=== PATIENT | female | born 1980 | race Caucasian/White ===

== ENCOUNTER 2016-11-21 14:18 | Emergency (ER) | payer OTHER ==
[2016-11-21 14:31] VITALS: RESP 18
[2016-11-21] MEDS ORDERED: ACETAMINOPHEN IV (For NPO) 1,000 MG in EMPTY BAG 1 BAG IVPB STA (15:06)
[2016-11-21] MEDS ORDERED: SODIUM CHLORIDE 0.9% 1,000 ML IV STA ×2 (15:06→16:30)
[2016-11-21] MEDS ORDERED: KETOROLAC 30 MG/ML 1 ML VIAL IVP STA (15:07)
--- NOTE | 2016-11-21 15:22 | ED ---
General Adult HPI - General Chief complaint: Chest Pain Stated complaint: chest pain/ rib pain Time Seen by Provider: 11/21/16 15:01 Source: patient, RN notes reviewed, old records reviewed Mode of arrival: ambulatory Limitations: no limitations - History of Present Illness Initial comments: This is a 36-year-old female to the ER for evaluation. This patient presents for evaluation of chest pain. Patient is medical history is consistent for taking Percocets, as well as recent upper for infection which she was taking [id number] medications. Patient denies nausea vomiting or diarrhea denies any significant complaints. She was at a doctor's office and apparently had a syncopal event possibly drug overdose unsure, per records obtained from [facility] the did see she had a drug overdose and patient signed an AMA, patient hears his combining of chest pain, she did have CPR during this event. Patient denies shortness of breath pain is worse when she pushes on it or takes a deep breath or coughs - Related Data Home Medications Medication Instructions Recorded Confirmed Furosemide [Lasix] 20 mg PO BID 08/15/14 11/21/16 acetaZOLAMIDE [Diamox] 500 mg PO BID 08/15/14 11/21/16 Gabapentin [Neurontin] 800 mg PO TID PRN 12/14/15 11/21/16 Lisinopril [Zestril] 20 mg PO BID PRN 11/21/16 11/21/16 Propranolol HCl [Propranolol HCl 120 mg PO DAILY 11/21/16 11/21/16 ER] oxyCODONE-APAP 10-325MG [Percocet 1 tab PO QID PRN 11/21/16 11/21/16 10-325 mg] Allergies Allergy/AdvReac Type Severity Reaction Status Date / Time nitrofurantoin Allergy Swelling Verified 11/21/16 14:31 [From Macrobid] nitrofurantoin Allergy Swelling Verified 11/21/16 14:31 macrocrystalline [From Macrobid] Penicillins Allergy Unknown Verified 11/21/16 14:31 Review of Systems ROS Statement: Those systems with pertinent positive or pertinent negative responses have been documented in the HPI. ROS Other: All systems not noted in ROS Statement are negative. Past Medical History Past Medical History: Hypertension Additional Past Medical History / Comment(s): ovarian cyst, tumor cerebrai, neuropathy History of Any Multi-Drug Resistant Organisms: None Reported Past Surgical History: Section, Tubal Ligation Additional Past Surgical History / Comment(s): D&C, right ovary removed Past Psychological History: Anxiety, Depression Smoking Status: Current every day smoker Past Alcohol Use History: Occasional Past Drug Use History: None Reported General Exam Limitations: no limitations General appearance: alert, in no apparent distress Head exam: Present: atraumatic, normocephalic, normal inspection Eye exam: Present: normal appearance, PERRL, EOMI. Absent: scleral icterus, conjunctival injection, periorbital swelling ENT exam: Present: normal exam, mucous membranes moist Neck exam: Present: normal inspection. Absent: tenderness, meningismus, lymphadenopathy Respiratory exam: Present: normal lung sounds bilaterally. Absent: respiratory distress, wheezes, rales, rhonchi, stridor Cardiovascular Exam: Present: regular rate, normal rhythm, normal heart sounds. Absent: systolic murmur, diastolic murmur, rubs, gallop, clicks GI/Abdominal exam: Present: soft, normal bowel sounds. Absent: distended, tenderness, guarding, rebound, rigid Extremities exam: Present: normal inspection, full ROM, normal capillary refill. Absent: tenderness, pedal edema, joint swelling, calf tenderness Back exam: Present: normal inspection Neurological exam: Present: alert, oriented X3, CN II-XII intact Psychiatric exam: Present: normal affect, normal mood Skin exam: Present: warm, dry, intact, normal color. Absent: rash Course Vital Signs 11/21/16 14:28 Temperature 98.3 F Pulse Rate 84 Respiratory 18 Rate Blood Pressure 189/116 O2 Sat by Pulse 100 Oximetry - Reevaluation(s) Reevaluation #1: 11/21/16 17:34 Patient states she still having chest pain rib pain and back pain EKG Findings - EKG Comments: EKG Findings:: EKG shows normal sinus or mastoid 2, NV 140, QRS 100, QTC 446 Medical Decision Making - Medical Decision Making 36 female here for evaluation of chest pain after CPR. Patient apparently had a possible overdose versus unknown cause of CPR few days ago, was seen [facility] emergency [facility], per records patient signed out AMA, during evaluation today patient's complaining of rib pain, CT is negative lab work is normal patient can be discharged home - Lab Data Result diagrams: 11/21/16 15:34 11/21/16 15:34 Lab Results 11/21/16 11/21/16 11/21/16 Range/Units 15:34 15:34 15:34 WBC 10.3 (3.8-10.6) k/uL RBC 3.80 (3.80-5.40) m/uL Hgb 11.0 L (11.4-16.0) gm/dL Hct 34.1 (34.0-46.0) % MCV 89.7 (80.0-100.0) fL MCH 29.0 (25.0-35.0) pg MCHC 32.3 (31.0-37.0) g/dL RDW 15.2 (11.5-15.5) % Plt Count 271 (150-450) k/uL Neutrophils % 68 % Lymphocytes % 24 % Monocytes % 4 % Eosinophils % 2 % Basophils % 1 % Neutrophils # 7.0 (1.3-7.7) k/uL Lymphocytes # 2.4 (1.0-4.8) k/uL Monocytes # 0.4 (0-1.0) k/uL Eosinophils # 0.2 (0-0.7) k/uL Basophils # 0.1 (0-0.2) k/uL PT (9.0-12.0) sec INR (<1.1) APTT (22.0-30.0) sec D-Dimer (<0.60) mg/L FEU Sodium 141 (137-145) mmol/L Potassium 4.0 (3.5-5.1) mmol/L Chloride 106 (98-107) mmol/L Carbon Dioxide 24 (22-30) mmol/L Anion Gap 11 mmol/L BUN 12 (7-17) mg/dL Creatinine 0.59 (0.52-1.04) mg/dL Est GFR (MDRD) Af Amer >60 (>60 ml/min/1.73 sqM) Est GFR (MDRD) Non-Af >60 (>60 ml/min/1.73 sqM) Glucose 107 H (74-99) mg/dL Calcium 8.8 (8.4-10.2) mg/dL Phosphorus 3.7 (2.5-4.5) mg/dL Magnesium 2.0 (1.6-2.3) mg/dL Total Bilirubin 0.4 (0.2-1.3) mg/dL AST 10 L (14-36) U/L ALT 33 (9-52) U/L Alkaline Phosphatase 75 (38-126) U/L Total Creatine Kinase 43 (30-135) U/L CK-MB (CK-2) 0.3 (0.0-2.4) ng/mL CK-MB (CK-2) Rel Index 0.7 Troponin I <0.012 (0.000-0.034) ng/mL Total Protein 7.1 (6.3-8.2) g/dL Albumin 3.9 (3.5-5.0) g/dL Urine HCG, Qual (Not Detectd) Salicylates <1.0 mg/dL Urine Opiates Screen (NotDetected) Ur Oxycodone Screen (NotDetected) Urine Methadone Screen (NotDetected) Ur Propoxyphene Screen (NotDetected) Acetaminophen <10.0 ug/mL Ur Barbiturates Screen (NotDetected) U Tricyclic Antidepress (NotDetected) Ur Phencyclidine Scrn (NotDetected) Ur Amphetamines Screen (NotDetected) U Methamphetamines Scrn (NotDetected) U Benzodiazepines Scrn (NotDetected) Urine Cocaine Screen (NotDetected) U Marijuana (THC) Screen (NotDetected) 11/21/16 11/21/16 11/21/16 Range/Units 15:34 16:23 16:23 WBC (3.8-10.6) k/uL RBC (3.80-5.40) m/uL Hgb (11.4-16.0) gm/dL Hct (34.0-46.0) % MCV (80.0-100.0) fL MCH (25.0-35.0) pg MCHC (31.0-37.0) g/dL RDW (11.5-15.5) % Plt Count (150-450) k/uL Neutrophils % % Lymphocytes % % Monocytes % % Eosinophils % % Basophils % % Neutrophils # (1.3-7.7) k/uL Lymphocytes # (1.0-4.8) k/uL Monocytes # (0-1.0) k/uL Eosinophils # (0-0.7) k/uL Basophils # (0-0.2) k/uL PT 10.5 (9.0-12.0) sec INR 1.0 (<1.1) APTT 23.1 (22.0-30.0) sec D-Dimer 1.53 H (<0.60) mg/L FEU Sodium (137-145) mmol/L Potassium (3.5-5.1) mmol/L Chloride (98-107) mmol/L Carbon Dioxide (22-30) mmol/L Anion Gap mmol/L BUN (7-17) mg/dL Creatinine (0.52-1.04) mg/dL Est GFR (MDRD) Af Amer (>60 ml/min/1.73 sqM) Est GFR (MDRD) Non-Af (>60 ml/min/1.73 sqM) Glucose (74-99) mg/dL Calcium (8.4-10.2) mg/dL Phosphorus (2.5-4.5) mg/dL Magnesium (1.6-2.3) mg/dL Total Bilirubin (0.2-1.3) mg/dL AST (14-36) U/L ALT (9-52) U/L Alkaline Phosphatase (38-126) U/L Total Creatine Kinase (30-135) U/L CK-MB (CK-2) (0.0-2.4) ng/mL CK-MB (CK-2) Rel Index Troponin I (0.000-0.034) ng/mL Total Protein (6.3-8.2) g/dL Albumin (3.5-5.0) g/dL Urine HCG, Qual Not Detected (Not Detectd) Salicylates mg/dL Urine Opiates Screen Detected H (NotDetected) Ur Oxycodone Screen Detected H (NotDetected) Urine Methadone Screen Not Detected (NotDetected) Ur Propoxyphene Screen Not Detected (NotDetected) Acetaminophen ug/mL Ur Barbiturates Screen Not Detected (NotDetected) U Tricyclic Antidepress Not Detected (NotDetected) Ur Phencyclidine Scrn Not Detected (NotDetected) Ur Amphetamines Screen Not Detected (NotDetected) U Methamphetamines Scrn Not Detected (NotDetected) U Benzodiazepines Scrn Not Detected (NotDetected) Urine Cocaine Screen Not Detected (NotDetected) U Marijuana (THC) Screen Not Detected (NotDetected) - Radiology Data Radiology results: report reviewed (Chest x-ray negative for acute disease, CT negative for PE or rib fracture,), image reviewed Disposition Clinical Impression: Chest wall contusion Disposition: HOME SELF-CARE Condition: Good Instructions: Costochondritis (ED) Referrals: None,Stated [Primary Care Provider] - 1-2 days
[2016-11-21 15:46] LABS: Basophils # (A) 0.1 k/uL (0-0.2); Basophils % (A) 1 %; CH 29.6; CHCM 33.2; Eosinophils # (A) 0.2 k/uL (0-0.7); Eosinophils % (A) 2 %; HCT 34.1 % (34.0-46.0); HDW 2.96; Luc # (Auto) 0.19; Luc % (Auto) 2; Lymphocytes # (A) 2.4 k/uL (1.0-4.8); Lymphocytes % (A) 24 %; MCHC 32.3 g/dL (31.0-37.0); MCV 89.7 fL (80.0-100.0); Mean Platelet Volume 8.3; Monocytes # (A) 0.4 k/uL (0-1.0); Monocytes % (A) 4 %; Neutrophils % (A) 68 %; RDW 15.2 % (11.5-15.5); WBC 10.3 k/uL (3.8-10.6); WBC (Perox) 10.67
[2016-11-21 15:57] LABS: ALT 33 U/L (9-52); AST 10 U/L (14-36); Acetaminophen <10.0 ug/mL; Alkaline Phosphatase 75 U/L (38-126); Anion Gap 11 mmol/L; Blood Urea Nitrogen 12 mg/dL (7-17); Calcium 8.8 mg/dL (8.4-10.2); Carbon Dioxide 24 mmol/L (22-30); Chloride 106 mmol/L (98-107); Glucose 107 mg/dL (74-99); Non-African American GFR(MDRD) >60 (>60 ml/min/1.73 sqM); Phosphorous 3.7 mg/dL (2.5-4.5); Salicylate <1.0 mg/dL; Sodium 141 mmol/L (137-145); Total Bilirubin 0.4 mg/dL (0.2-1.3); Total Protein 7.1 g/dL (6.3-8.2)
[2016-11-21 15:59] LABS: Partial Thromboplastin Time 23.1 sec (22.0-30.0); Prothrombin Time 10.5 sec (9.0-12.0)
[2016-11-21 16:03] LABS: Creatine Kinase 43 U/L (30-135)
[2016-11-21 16:15] LABS: Creatine Kinase MB 0.3 ng/mL (0.0-2.4); Troponin I <0.012 ng/mL (0.000-0.034)
--- NOTE | 2016-11-21 16:16 | XR ---
EXAMINATION TYPE: XR chest 2V DATE OF EXAM: 11/21/2016 3:55 PM COMPARISON: 10/11/2015 INDICATION: Weakness TECHNIQUE: Single frontal view of the chest is obtained. FINDINGS: The heart size is normal. The pulmonary vasculature is normal. There is some blunting left costophrenic angle. Small pleural effusion or atelectasis could be consid ered. No pneumothorax is evident. The lungs are otherwise clear. No acute osseous abnormality is radiographically apparent. IMPRESSION: 1. Minimal atelectasis or effusion at the left costophrenic angle.
[2016-11-21] MEDS ORDERED: RX INFO: IV CONTRAST WAS GIVEN 1 EACH MISC MISCELLANE PRN (16:28)
--- NOTE | 2016-11-21 17:01 | CT ---
CT CHEST FOR PULMONARY EMBOLISM. EXAMINATION TYPE: CT angio chest DATE OF EXAM: 11/21/2016 4:56 PM INDICATION: Pt states of chest pain and SOB. Recent LOC episode x4days ago. CT DLP: 1566 mGycm, Automated exposure control for dose reduction was used. CONTRAST: Patient injected with 100 mL of Omnipaque 350. COMPARISON: NONE TECHNIQUE: CT of the chest is performed on a spiral scan at 2 mm thick sections. Study is performed with intravenous contrast timed for evaluation for pulmonary embolism. This will limit additional po rtions of the evaluation. 3-D MIP images reconstructed by the technologist are reviewed on the compu ter in the coronal and sagittal planes. FINDINGS: No persistent filling defects are evident to suggest an acute pulmonary embolism. No mediastinal or hilar adenopathy enlarged by CT criteria is evident. The ascending aorta diameter at the level of the main pulmonary artery is 4.1 cm. The main pulmonary artery diameter at the bifur cation is 2.5 cm. Minimal pleural effusions are present. Lung windows appear clear. Limited CT section through the upper abdomen are unremarkable. IMPRESSIONS: 1. No acute pulmonary embolism. 2. Minimal bilateral pleural effusions.
[2016-11-21 17:44] VITALS: BP 155/99; PULSE 70; TEMP 97.9
== END 2016-11-21 17:44 | disposition home or self-care (01) ==
LOC: EC 14:18
DX: S20.219A Contusion of unspecified front wall of thorax, initial encounter (principal); M94.0 Chondrocostal junction syndrome [Tietze]; I10 Essential (primary) hypertension; G62.9 Polyneuropathy, unspecified; F17.200 Nicotine dependence, unspecified, uncomplicated; Z79.899 Other long term (current) drug therapy; Z88.0 Allergy status to penicillin; Z88.8 Allergy status to other drugs, medicaments and biological substances; X58.XXXA Exposure to other specified factors, initial encounter
CPT/HCPCS: 36415; 93005; 85379; 80053; 82550; 82553; 83735; 84100; 84484; 85025; 85610; 85730; 81025; 80306; 83520 ×2; 71020; 71275; 99285; 96374; 96375; 96361 ×2; Q9967; J1885; J0131

== ENCOUNTER 2018-03-12 10:52 | Emergency (ER) | payer OTHER ==
[2018-03-12 10:57] VITALS: RESP 18; TEMP 98.1
[2018-03-12] MEDS ORDERED: PROMETHAZINE INJ 25 MG/ML 1 ML VIAL IVPB STA (11:44)
[2018-03-12] MEDS ORDERED: diphenhydrAMINE 50 MG/ML 1 ML VIAL IVP STA (11:44)
[2018-03-12] MEDS ORDERED: KETOROLAC 60 MG/2 ML VIAL IVP STA (11:44)
[2018-03-12] MEDS ORDERED: SODIUM CHLORIDE 0.9% 1,000 ML IV ONE (11:44)
--- NOTE | 2018-03-12 11:49 | ED ---
General Adult HPI - General Chief complaint: Headache Stated complaint: Migraine Time Seen by Provider: 03/12/18 10:55 Source: patient, RN notes reviewed Mode of arrival: ambulatory Limitations: no limitations - History of Present Illness Initial comments: This is a 38-year-old female presents emergency Department with a past history significant for opiate abuse and migraine headaches. Patient states she's been multiple opiate free for 16 months. Patient states she started having a migraine headache he states on the right side of her head she is photophobic and nauseated. Patient states she has not vomited this point. Patient denies any blurred vision. Patient denies any numbness or weakness. Patient states there is nothing different about this headache than any of her previous migraine headaches. Patient denies any recent fever chills. Patient denies any difficulty breathing shortest breath per patient denies any chest pain. Patient denies abdominal pain patient denies any vomiting or diarrhea. - Related Data Home Medications Medication Instructions Recorded Confirmed Ibuprofen [Motrin Ib] 800 mg PO Q6H PRN 03/12/18 03/12/18 Allergies Allergy/AdvReac Type Severity Reaction Status Date / Time nitrofurantoin Allergy Swelling Verified 03/12/18 11:11 [From Macrobid] nitrofurantoin Allergy Swelling Verified 03/12/18 11:11 macrocrystalline [From Macrobid] Penicillins Allergy Unknown Verified 03/12/18 11:11 Review of Systems ROS Statement: Those systems with pertinent positive or pertinent negative responses have been documented in the HPI. ROS Other: All systems not noted in ROS Statement are negative. Past Medical History Past Medical History: Hypertension Additional Past Medical History / Comment(s): ovarian cyst, tumor cerebrai, neuropathy, migraines History of Any Multi-Drug Resistant Organisms: None Reported Past Surgical History: Section, Tubal Ligation Additional Past Surgical History / Comment(s): D&C, right ovary removed Past Psychological History: Anxiety, Depression Smoking Status: Former smoker Past Alcohol Use History: Rare Past Drug Use History: None Reported General Exam - General Exam Comments Initial Comments: GENERAL: Patient is well-developed and well-nourished. Patient is nontoxic and well- hydrated and is in mild distress. ENT: Neck is soft and supple. No significant lymphadenopathy is noted. Oropharynx is clear. Moist mucous membranes. Neck has full range of motion without eliciting any pain. EYES: The sclera were anicteric and conjunctiva were pink and moist. Extraocular movements were intact and pupils were equal round and reactive to light. Eyelids were unremarkable. PULMONARY: Unlabored respirations. Good breath sounds bilaterally. No audible rales rhonchi or wheezing was noted. CARDIOVASCULAR: There is a regular rate and rhythm without any murmurs gallops or rubs. ABDOMEN: Soft and nontender with normal bowel sounds. SKIN: Skin is clear with no lesions or rashes and otherwise unremarkable. NEUROLOGIC: Patient is alert and oriented x3. Cranial nerves II through XII are grossly intact. Motor and sensory are also intact. Normal speech, volume and content. Symmetrical smile. MUSCULOSKELETAL: Normal extremities with adequate strength and full range of motion. LYMPHATICS: No significant lymphadenopathy is noted PSYCHIATRIC: Normal psychiatric evaluation. Normal interpersonal interactions appears functionally intact in deals appropriately with others. No signs of depression. No signs of anxiety. Limitations: no limitations Course Vital Signs 03/12/18 10:53 Temperature 98.1 F Pulse Rate 83 Respiratory 18 Rate Blood Pressure 156/97 O2 Sat by Pulse 97 Oximetry Medical Decision Making - Medical Decision Making I will back into reevaluate the patient after she received Toradol Benadryl and Phenergan she was sleeping I awoke her and she said she felt way better. Disposition Clinical Impression: Migraine Disposition: HOME SELF-CARE Condition: Good Instructions: Acute Headache (ED) Is patient prescribed a controlled substance at d/c from ED?: No Referrals: None,Stated [Primary Care Provider] - 1-2 days Time of Disposition: 13:28
[2018-03-12 14:07] VITALS: BP 148/84; PULSE 82
== END 2018-03-12 14:07 | disposition home or self-care (01) ==
LOC: EC 10:52
DX: G43.909 Migraine, unspecified, not intractable, without status migrainosus (principal); Z87.891 Personal history of nicotine dependence; Z88.0 Allergy status to penicillin; Z88.1 Allergy status to other antibiotic agents
CPT/HCPCS: 99283; 96374; 96375 ×2; 96361 ×2; J1200; J2550; J1885

== ENCOUNTER 2018-05-14 09:26 | Emergency (ER) | payer OTHER ==
[2018-05-14] MEDS ORDERED: SODIUM CHLORIDE 0.9% 1,000 ML IV STA (09:55)
--- NOTE | 2018-05-14 09:58 | ED ---
General Adult HPI - General Chief complaint: Vaginal Bleeding Stated complaint: Bleeding Time Seen by Provider: 05/14/18 09:45 Source: patient, RN notes reviewed Mode of arrival: ambulatory Limitations: no limitations - History of Present Illness Initial comments: Patient 38-year-old female presented to the emergency room today with a chief complaint of increased vaginal bleeding. Patient was met that over the last 6- 8 months she's noticed that she's been having heavier periods. She states that over the last week she started her period and has been passing some large clots. Patient states that she has been using ibuprofen for abdominal cramping. Patient denies any other complaints or symptoms at this time. History of anemia. Patient denies any recent fever, chills, shortness of breath , chest pain, back pain, nausea or vomiting, numbness or tingling, dysuria or hematuria, constipation or diarrhea, headaches or visual changes, or any other complaints. - Related Data Home Medications Medication Instructions Recorded Confirmed Ibuprofen [Motrin Ib] 800 mg PO Q6H PRN 03/12/18 05/14/18 Acetaminophen/Pamabrom [Midol 2 tab PO Q6H PRN 05/14/18 05/14/18 Caplet] Allergies Allergy/AdvReac Type Severity Reaction Status Date / Time nitrofurantoin Allergy Swelling Verified 05/14/18 09:35 [From Macrobid] nitrofurantoin Allergy Swelling Verified 05/14/18 09:35 macrocrystalline [From Macrobid] Penicillins Allergy Unknown Verified 05/14/18 09:35 Review of Systems ROS Statement: Those systems with pertinent positive or pertinent negative responses have been documented in the HPI. ROS Other: All systems not noted in ROS Statement are negative. Past Medical History Past Medical History: Hypertension Additional Past Medical History / Comment(s): ovarian cyst, tumor cerebrai, neuropathy, migraines History of Any Multi-Drug Resistant Organisms: None Reported Past Surgical History: Section, Tubal Ligation Additional Past Surgical History / Comment(s): D&C, right ovary removed Past Psychological History: Anxiety, Depression Smoking Status: Former smoker Past Alcohol Use History: Rare Past Drug Use History: None Reported General Exam - General Exam Comments Initial Comments: General: The patient is awake and alert, in no distress, and does not appear acutely ill. Eye: Pupils are equal, round and reactive to light. Extra-ocular movements are intact. No nystagmus. There is normal conjunctiva bilaterally. No signs of icterus. Ears, nose, mouth and throat: There are moist mucous membranes and no oral lesions. Neck: The neck is supple, there is no tenderness or JVD. Cardiovascular: There is a regular rate and rhythm. No murmur, rub or gallop is appreciated. Respiratory: Lungs are clear to auscultation, respirations are non-labored, breath sounds are equal. No wheezes, stridor, rales, or rhonchi. Gastrointestinal: Soft, non-distended, non-tender abdomen without masses or organomegaly noted. There is no rebound or guarding present. No CVA tenderness. Musculoskeletal: Normal ROM, no tenderness. Sensation intact. Neurological: A&O x 3. CN II-XII intact, There are no obvious motor or sensory deficits. Coordination appears grossly intact. Speech is normal. Skin: Skin is warm and dry and no rashes or lesions are noted. Psychiatric: Cooperative, appropriate mood & affect, normal judgment. Limitations: no limitations Course Vital Signs 05/14/18 09:29 Temperature 98.4 F Pulse Rate 77 Respiratory 20 Rate Blood Pressure 148/92 O2 Sat by Pulse 98 Oximetry Medical Decision Making - Medical Decision Making Patient's labs been reviewed. Hemoglobin stable. Patient's ultrasound does reveal a small uterine fibroid. Results were discussed with age. Patient will be discharged home to follow up with her [employer]. She states that she has seen Dr. Mariee in the past. - Lab Data Result diagrams: 05/14/18 10:05 05/14/18 10:05 Lab Results 05/14/18 05/14/18 05/14/18 Range/Units 10:05 10:05 10:05 WBC 7.9 (3.8-10.6) k/uL RBC 3.86 (3.80-5.40) m/uL Hgb 11.2 L (11.4-16.0) gm/dL Hct 33.6 L (34.0-46.0) % MCV 86.9 (80.0-100.0) fL MCH 28.9 (25.0-35.0) pg MCHC 33.2 (31.0-37.0) g/dL RDW 14.6 (11.5-15.5) % Plt Count 276 (150-450) k/uL Neutrophils % 68 % Lymphocytes % 23 % Monocytes % 4 % Eosinophils % 3 % Basophils % 1 % Neutrophils # 5.4 (1.3-7.7) k/uL Lymphocytes # 1.8 (1.0-4.8) k/uL Monocytes # 0.4 (0-1.0) k/uL Eosinophils # 0.2 (0-0.7) k/uL Basophils # 0.0 (0-0.2) k/uL Sodium 140 (137-145) mmol/L Potassium 4.3 (3.5-5.1) mmol/L Chloride 107 (98-107) mmol/L Carbon Dioxide 25 (22-30) mmol/L Anion Gap 8 mmol/L BUN 13 (7-17) mg/dL Creatinine 0.54 (0.52-1.04) mg/dL Est GFR (CKD-EPI)AfAm >90 (>60 ml/min/1.73 sqM) Est GFR (CKD-EPI)NonAf >90 (>60 ml/min/1.73 sqM) Glucose 95 (74-99) mg/dL Calcium 8.3 L (8.4-10.2) mg/dL Total Bilirubin 0.3 (0.2-1.3) mg/dL AST 14 (14-36) U/L ALT 21 (9-52) U/L Alkaline Phosphatase 57 (38-126) U/L Total Protein 6.6 (6.3-8.2) g/dL Albumin 3.5 (3.5-5.0) g/dL Urine Color Urine Appearance (Clear) Urine pH (5.0-8.0) Ur Specific [place] (1.001-1.035) Urine Protein (Negative) Urine Glucose (UA) (Negative) Urine Ketones (Negative) Urine Blood (Negative) Urine Nitrite (Negative) Urine Bilirubin (Negative) Urine Urobilinogen (<2.0) mg/dL Ur Leukocyte Esterase (Negative) Urine RBC (0-5) /hpf Urine WBC (0-5) /hpf Ur Squamous Epith Cells (0-4) /hpf Urine Mucus (None) /hpf Urine HCG, Qual Not Detected (Not Detectd) 05/14/18 Range/Units 10:05 WBC (3.8-10.6) k/uL RBC (3.80-5.40) m/uL Hgb (11.4-16.0) gm/dL Hct (34.0-46.0) % MCV (80.0-100.0) fL MCH (25.0-35.0) pg MCHC (31.0-37.0) g/dL RDW (11.5-15.5) % Plt Count (150-450) k/uL Neutrophils % % Lymphocytes % % Monocytes % % Eosinophils % % Basophils % % Neutrophils # (1.3-7.7) k/uL Lymphocytes # (1.0-4.8) k/uL Monocytes # (0-1.0) k/uL Eosinophils # (0-0.7) k/uL Basophils # (0-0.2) k/uL Sodium (137-145) mmol/L Potassium (3.5-5.1) mmol/L Chloride (98-107) mmol/L Carbon Dioxide (22-30) mmol/L Anion Gap mmol/L BUN (7-17) mg/dL Creatinine (0.52-1.04) mg/dL Est GFR (CKD-EPI)AfAm (>60 ml/min/1.73 sqM) Est GFR (CKD-EPI)NonAf (>60 ml/min/1.73 sqM) Glucose (74-99) mg/dL Calcium (8.4-10.2) mg/dL Total Bilirubin (0.2-1.3) mg/dL AST (14-36) U/L ALT (9-52) U/L Alkaline Phosphatase (38-126) U/L Total Protein (6.3-8.2) g/dL Albumin (3.5-5.0) g/dL Urine Color Yellow Urine Appearance Cloudy H (Clear) Urine pH 6.0 (5.0-8.0) Ur Specific [place] 1.024 (1.001-1.035) Urine Protein Negative (Negative) Urine Glucose (UA) Negative (Negative) Urine Ketones Negative (Negative) Urine Blood Moderate H (Negative) Urine Nitrite Negative (Negative) Urine Bilirubin Negative (Negative) Urine Urobilinogen <2.0 (<2.0) mg/dL Ur Leukocyte Esterase Negative (Negative) Urine RBC 24 H (0-5) /hpf Urine WBC 3 (0-5) /hpf Ur Squamous Epith Cells 1 (0-4) /hpf Urine Mucus Occasional H (None) /hpf Urine HCG, Qual (Not Detectd) Disposition Clinical Impression: Uterine fibroid, Dysfunctional uterine bleeding Disposition: HOME SELF-CARE Condition: Good Instructions: Dysfunctional Uterine Bleeding (ED) Additional Instructions: Please follow-up with the [facility] over the next 2 days as discussed. Please return here to the emergency room for any symptoms increase or worsen or for any other concerns. Is patient prescribed a controlled substance at d/c from ED?: No Referrals: None,Stated [Primary Care Provider] - 1-2 days Gil Mariee MD [STAFF PHYSICIAN] - 1-2 days Time of Disposition: 12:11
[2018-05-14 10:17] LABS: Basophils % (A) 1 %; Eosinophils # (A) 0.2 k/uL (0-0.7); Eosinophils % (A) 3 %; HCT 33.6 % (34.0-46.0); HGB 11.2 gm/dL (11.4-16.0); Lymphocytes # (A) 1.8 k/uL (1.0-4.8); Lymphocytes % (A) 23 %; MCH 28.9 pg (25.0-35.0); MCHC 33.2 g/dL (31.0-37.0); MCV 86.9 fL (80.0-100.0); Mean Platelet Volume 7.9; Monocytes # (A) 0.4 k/uL (0-1.0); Monocytes % (A) 4 %; Neutrophils # (A) 5.4 k/uL (1.3-7.7); Neutrophils % (A) 68 %; Platelet Count 276 k/uL (150-450); RBC 3.86 m/uL (3.80-5.40); RDW 14.6 % (11.5-15.5); WBC 7.9 k/uL (3.8-10.6)
[2018-05-14 10:22] LABS: Appearance,Urine Cloudy (Clear); Bilirubin,Urine Negative (Negative); Blood,Urine Moderate (Negative); Color,Urine Yellow; Glucose,Urine (UA) Negative (Negative); Ketones,Urine Negative (Negative); Leukocyte Esterase,Urine Negative (Negative); Mucus,Urine Occasional /hpf; Nitrite,Urine Negative (Negative); Protein,Urine Negative (Negative); RBC,Urine 24 /hpf (0-5); Specific Gravity,Urine 1.024 (1.001-1.035); Squamous Epithelial Cell,Urine 1 /hpf (0-4); Urobilinogen,Urine <2.0 mg/dL (<2.0); WBC,Urine 3 /hpf (0-5)
[2018-05-14 10:27] LABS: ALT 21 U/L (9-52); AST 14 U/L (14-36); Albumin 3.5 g/dL (3.5-5.0); Alkaline Phosphatase 57 U/L (38-126); Anion Gap 8 mmol/L; Blood Urea Nitrogen 13 mg/dL (7-17); Calcium 8.3 mg/dL (8.4-10.2); Carbon Dioxide 25 mmol/L (22-30); Chloride 107 mmol/L (98-107); Glucose 95 mg/dL (74-99); Potassium 4.3 mmol/L (3.5-5.1); Sodium 140 mmol/L (137-145); Total Bilirubin 0.3 mg/dL (0.2-1.3); Total Protein 6.6 g/dL (6.3-8.2)
--- NOTE | 2018-05-14 12:03 | US ---
EXAMINATION TYPE: US transvaginal DATE OF EXAM: 05/14/2018 COMPARISON: NONE CLINICAL HISTORY: Vaginal bleeding. TECHNIQUE: Transvaginal (TV). Date of LMP: 05/08/18 EXAM MEASUREMENTS: Uterus: 11.6 x 7.9 x 7.7 cm Endometrial Stripe: 3.6 cm Right Ovary: Not visualized due to obesity and overlying bowel Left Ovary: Not visualized due to obesity and overlying bowel Morbidly obese patient, technically difficult study. 1. Uterus: Anteverted There is a 1.8 x 1.4 x 2.0 cm hypodense isoechoic structure within the anter ior uterus could be a small fibroid. 2. Endometrium: thickened 3. Right Ovary: Not visualized due to obesity and overlying bowel 4. Left Ovary: Not visualized due to obesity and overlying bowel 5. Bilateral Adnexa: wnl,as seen in limited capacity 6. Posterior cul-de-sac: wnl,as seen in limited capacity IMPRESSION: 1. Small uterine fibroid. 2. No acute ultrasound abnormality pelvic ultrasound.
[2018-05-14 12:27] VITALS: BP 145/94; PULSE 66; RESP 18; TEMP 97.6
== END 2018-05-14 12:27 | disposition home or self-care (01) ==
LOC: EC 09:26
DX: D25.9 Leiomyoma of uterus, unspecified (principal); N93.8 Other specified abnormal uterine and vaginal bleeding; Z87.42 Personal history of other diseases of the female genital tract; Z87.891 Personal history of nicotine dependence; Z88.0 Allergy status to penicillin; Z88.1 Allergy status to other antibiotic agents
CPT/HCPCS: 36415; 76830; 80053; 81001; 81025; 85025; 96360; 99284

== ENCOUNTER 2018-07-10 11:29 | Emergency (ER) | payer OTHER ==
[2018-07-10 11:34] VITALS: TEMP 98.1
--- NOTE | 2018-07-10 12:20 | ED ---
Recheck HPI - General Chief Complaint: Recheck/Abnormal Lab/Rx Stated Complaint: Swelling Time Seen by Provider: 07/10/18 12:05 Source: patient Mode of arrival: ambulatory Limitations: no limitations - History of Present Illness Initial Comments: 38yo, past medical history of pseudotumor surgery, hypertension, chronic migraines presenting today for chief complaint of increased swelling of the entire body 2 months with weight gain, and right sided abdominal mass growing since 2009. Patient states that since the end of March she has gained about 70 pounds, she states that she usually is on Lasix and Diamox for her pseudotumor cerebri and peripheral edema however she does not have a primary care provider at this time has not been able to get the prescriptions, she has noticed leg swell equally b/l as well as UE b/l especially with extended periods of time. She previously had seen her neurologist Dr. Rodrigues, however due to patient not having pain medications in her system she was dismissed from the practice. In addition patient stated that she has had a hard lump in the right side of her abdomen, she states that this was first noticed in 2009 however has been growing larger. Patient said that she is concerned about the weight gain, she states that is causing her abdomen feels distended. Pt denies stating she is not sexually active with gentleman. Patient denies any abdominal pain, fever, chills, nausea, vomiting, diarrhea, chest pain, shortness of breath, paresthesias of the upper or lower extremity. Patient does admit to increased headaches, however states that she has a dull aching headache today that is much better than her usual headaches. Pt denies visual changes, neck stiffness or any associated symptoms with the headache today. Negative ROS negative. Upon arrival patient appears well, no signs of distress. Blood pressure elevated at 160/94, however patient states she has not taken her blood pressure medications 2 months. Remainder of vital signs within except limits. - Related Data Home Medications Medication Instructions Recorded Confirmed Ibuprofen [Motrin Ib] 800 mg PO Q6H PRN 03/12/18 07/10/18 Previous Rx's Medication Instructions Recorded Furosemide [Lasix] 20 mg PO BID 10 Days #20 tab 07/10/18 Lisinopril 20 mg PO DAILY 10 Days #10 tab 07/10/18 Allergies Allergy/AdvReac Type Severity Reaction Status Date / Time macadamia nut oil Allergy Unknown Verified 07/10/18 12:36 nitrofurantoin Allergy Swelling Verified 07/10/18 12:36 [From Macrobid] nitrofurantoin Allergy Swelling Verified 07/10/18 12:36 macrocrystalline [From Macrobid] Penicillins Allergy Unknown Verified 07/10/18 12:36 Review of Systems ROS Statement: Those systems with pertinent positive or pertinent negative responses have been documented in the HPI. ROS Other: All systems not noted in ROS Statement are negative. Constitutional: Reports: weight change (weight gain of 70 lbs since March- peripheral edema). Denies: fever, chills, night sweats ENT: Denies: ear pain, throat pain Respiratory: Denies: cough, dyspnea, wheezes, hemoptysis, stridor Cardiovascular: Reports: edema (of hands and feet b/l). Denies: chest pain, palpitations, dyspnea on exertion Gastrointestinal: Reports: as per HPI (abdominal distention). Denies: abdominal pain, nausea, vomiting, diarrhea, constipation Genitourinary: Denies: urgency, dysuria, frequency, hematuria Skin: Denies: rash, lesions Past Medical History Past Medical History: Hypertension Additional Past Medical History / Comment(s): ovarian cyst, tumor cerebrai, neuropathy, migraines History of Any Multi-Drug Resistant Organisms: None Reported Past Surgical History: Section, Tubal Ligation Additional Past Surgical History / Comment(s): D&C, right ovary removed Past Psychological History: Anxiety, Depression Smoking Status: Former smoker Past Alcohol Use History: Rare Past Drug Use History: None Reported General Exam - General Exam Comments Initial Comments: General: The patient is awake and alert, in no distress, and does not appear acutely ill. Eye: Pupils are equal, round and reactive to light, extra-ocular movements are intact. No nystagmus. There is normal conjunctiva bilaterally. No signs of icterus. Ears, nose, mouth and throat: There are moist mucous membranes and no oral lesions. Neck: The neck is supple, there is no tenderness or JVD. Cardiovascular: There is a regular rate and rhythm. No murmur, rub or gallop is appreciated. Respiratory: Lungs are clear to auscultation, respirations are non-labored, breath sounds are equal. No wheezes, stridor, rales, or rhonchi. Gastrointestinal: No noted diaphoresis, jaundice, pallor, protecting postures or squirming. Symmetrical pigmentation of abdomen without signs of inflammation. There is scant striae. Umbilicus mildline, inverted without swelling. No dilated veins. Abdomen contour obese, no noted abdominal distention-abdomen is soft to palpation. Palpable mass in the left upper quadrant. No peristalsis, aortic pulsations, or ventral hernia. Bowel sounds audible in all 4 quadrants, unremarkable. No friction rubs or venous hums. No epigastic, hepatic or abdominal bruits. No tenderness to light or deep palpation, pt states it is just pressure not pain. Liver edge, not palpable. Spleen edge, right and left kidney not palpable. Superior bladder margin non-tender. Special Testing: Negative [place], Rovsing, McBurney, Kristine, cutaneous hyperesthesia. Negative Heel Jar test.. No CVA tenderness. Digital rectal exam deferred. Negative bolton turners or cullens sign Musculoskeletal: Normal ROM, no tenderness. Strength 5/5. Sensation intact. Pulses equal bilaterally 2+. Neurological: A&O x 3. CN II-XII intact, There are no obvious motor or sensory deficits. Coordination appears grossly intact. Speech is normal. Skin: Skin is warm and dry and no rashes or lesions are noted. Mild pretibial edema b/l equally, no erythema. (-) Homans. No pain along the venous system. Psychiatric: Cooperative, appropriate mood & affect, normal judgment. Limitations: no limitations Course Vital Signs 07/10/18 07/10/18 07/10/18 11:31 13:45 14:45 Temperature 98.1 F Pulse Rate 73 71 70 Respiratory 20 18 18 Rate Blood Pressure 169/94 153/108 155/107 O2 Sat by Pulse 99 99 96 Oximetry 07/10/18 07/10/18 15:25 15:34 Temperature 98.1 F Pulse Rate 68 Respiratory 18 Rate Blood Pressure 149/94 149/94 O2 Sat by Pulse 98 Oximetry Medical Decision Making - Medical Decision Making 38-year-old female past medical history of peripheral edema, pseudotumor cerebri and hypertension. Pt has not taken lasix in 2 months. Minimal pitting edema of the pretibial region upon examination. Labs unremarkable, UA is medically touch patient denies any urinary symptoms at this time. Patient blood pressure elevated she was given her home dose of lisinopril. CT abdomen and pelvis within normal limits, was noted fibroids the uterus, patient states that she is aware. No concerning findings for acute abdomen on physical examination. BMP within normal limits. At this time we feel patient swelling is due to noncompliance with her Lasix as prescribed by previous provider. We gave 10 day supply of Lasix as well as her hypertension medicine which she has been out of for 2 months. Review of systems is negative. No signs of end organ damage. Patient's blood pressure being elevated after a dose of 20 mg lisinopril, patient states that sometimes she has to take 2 doses a day. Patient was given 10 mg of hydralazine and was discharged in stable condition. Patient is instructed to give further prescriptions for peripheral edema and hypertension with primary care provider. Prior to discharge case was discussed in detail with Dr. Ji, who agreed the impression and plan. Return parameters discussed in detail with the patient who verbalizes understanding. - Lab Data Result diagrams: 07/10/18 13:00 07/10/18 13:00 Lab Results 07/10/18 07/10/18 07/10/18 Range/Units 12:50 12:50 13:00 WBC 8.3 (3.8-10.6) k/uL RBC 4.04 (3.80-5.40) m/uL Hgb 11.4 (11.4-16.0) gm/dL Hct 35.1 (34.0-46.0) % MCV 87.0 (80.0-100.0) fL MCH 28.2 (25.0-35.0) pg MCHC 32.4 (31.0-37.0) g/dL RDW 14.6 (11.5-15.5) % Plt Count 296 (150-450) k/uL Neutrophils % 66 % Lymphocytes % 24 % Monocytes % 5 % Eosinophils % 3 % Basophils % 1 % Neutrophils # 5.4 (1.3-7.7) k/uL Lymphocytes # 2.0 (1.0-4.8) k/uL Monocytes # 0.4 (0-1.0) k/uL Eosinophils # 0.3 (0-0.7) k/uL Basophils # 0.1 (0-0.2) k/uL Sodium (137-145) mmol/L Potassium (3.5-5.1) mmol/L Chloride (98-107) mmol/L Carbon Dioxide (22-30) mmol/L Anion Gap mmol/L BUN (7-17) mg/dL Creatinine (0.52-1.04) mg/dL Est GFR (CKD-EPI)AfAm (>60 ml/min/1.73 sqM) Est GFR (CKD-EPI)NonAf (>60 ml/min/1.73 sqM) Glucose (74-99) mg/dL Calcium (8.4-10.2) mg/dL Total Bilirubin (0.2-1.3) mg/dL AST (14-36) U/L ALT (9-52) U/L Alkaline Phosphatase (38-126) U/L NT-Pro-B Natriuret Pep pg/mL Total Protein (6.3-8.2) g/dL Albumin (3.5-5.0) g/dL Urine Color Yellow Urine Appearance Clear (Clear) Urine pH 6.0 (5.0-8.0) Ur Specific [place] 1.027 (1.001-1.035) Urine Protein Trace H (Negative) Urine Glucose (UA) Negative (Negative) Urine Ketones Negative (Negative) Urine Blood Trace H (Negative) Urine Nitrite Negative (Negative) Urine Bilirubin Negative (Negative) Urine Urobilinogen <2.0 (<2.0) mg/dL Ur Leukocyte Esterase Trace H (Negative) Urine RBC 5 (0-5) /hpf Urine WBC 4 (0-5) /hpf Ur Squamous Epith Cells 5 H (0-4) /hpf Urine Bacteria Rare H (None) /hpf Urine Mucus Few H (None) /hpf Urine HCG, Qual Not Detected (Not Detectd) 07/10/18 07/10/18 Range/Units 13:00 13:00 WBC (3.8-10.6) k/uL RBC (3.80-5.40) m/uL Hgb (11.4-16.0) gm/dL Hct (34.0-46.0) % MCV (80.0-100.0) fL MCH (25.0-35.0) pg MCHC (31.0-37.0) g/dL RDW (11.5-15.5) % Plt Count (150-450) k/uL Neutrophils % % Lymphocytes % % Monocytes % % Eosinophils % % Basophils % % Neutrophils # (1.3-7.7) k/uL Lymphocytes # (1.0-4.8) k/uL Monocytes # (0-1.0) k/uL Eosinophils # (0-0.7) k/uL Basophils # (0-0.2) k/uL Sodium 140 (137-145) mmol/L Potassium 3.9 (3.5-5.1) mmol/L Chloride 107 (98-107) mmol/L Carbon Dioxide 24 (22-30) mmol/L Anion Gap 9 mmol/L BUN 16 (7-17) mg/dL Creatinine 0.56 (0.52-1.04) mg/dL Est GFR (CKD-EPI)AfAm >90 (>60 ml/min/1.73 sqM) Est GFR (CKD-EPI)NonAf >90 (>60 ml/min/1.73 sqM) Glucose 101 H (74-99) mg/dL Calcium 8.7 (8.4-10.2) mg/dL Total Bilirubin 0.3 (0.2-1.3) mg/dL AST 15 (14-36) U/L ALT 21 (9-52) U/L Alkaline Phosphatase 69 (38-126) U/L NT-Pro-B Natriuret Pep 97 pg/mL Total Protein 6.8 (6.3-8.2) g/dL Albumin 3.6 (3.5-5.0) g/dL Urine Color Urine Appearance (Clear) Urine pH (5.0-8.0) Ur Specific [place] (1.001-1.035) Urine Protein (Negative) Urine Glucose (UA) (Negative) Urine Ketones (Negative) Urine Blood (Negative) Urine Nitrite (Negative) Urine Bilirubin (Negative) Urine Urobilinogen (<2.0) mg/dL Ur Leukocyte Esterase (Negative) Urine RBC (0-5) /hpf Urine WBC (0-5) /hpf Ur Squamous Epith Cells (0-4) /hpf Urine Bacteria (None) /hpf Urine Mucus (None) /hpf Urine HCG, Qual (Not Detectd) Disposition Clinical Impression: Peripheral edema, Weight gain, Fibroid, uterine Disposition: HOME SELF-CARE Condition: Good Instructions: Edema (ED) Additional Instructions: Please use medication as discussed. Please follow-up with family doctor in the next 2 days, for management of peripheral edema and elevated blood pressure. Please return to emergency room if the symptoms increase or worsen or for any other concerns. Prescriptions: Furosemide [Lasix] 20 mg PO BID 10 Days #20 tab Lisinopril 20 mg PO DAILY 10 Days #10 tab Is patient prescribed a controlled substance at d/c from ED?: No Referrals: None,Stated [Primary Care Provider] - 1-2 days [facility] Tristian hernadez [NON-STAFF] - 1-2 days Time of Disposition: 14:41
--- NOTE | 2018-07-10 13:08 | XR ---
EXAMINATION TYPE: XR chest 2V DATE OF EXAM: 07/10/2018 COMPARISON: 11/21/2016 HISTORY: Chest pain TECHNIQUE: Frontal and lateral views of the chest are obtained. FINDINGS: There is no focal air space opacity. No evidence for pneumothorax. No pleural effusion. The cardiac silhouette size is within normal limits. The osseous structures are grossly intact. IMPRESSION: 1. No acute cardiopulmonary process.
[2018-07-10 13:19] LABS: Appearance,Urine Clear (Clear); Bacteria,Urine Rare /hpf; Bilirubin,Urine Negative (Negative); Blood,Urine Trace (Negative); Color,Urine Yellow; Glucose,Urine (UA) Negative (Negative); Ketones,Urine Negative (Negative); Leukocyte Esterase,Urine Trace (Negative); Mucus,Urine Few /hpf; Nitrite,Urine Negative (Negative); Protein,Urine Trace (Negative); RBC,Urine 5 /hpf (0-5); Specific Gravity,Urine 1.027 (1.001-1.035); Squamous Epithelial Cell,Urine 5 /hpf (0-4); Urobilinogen,Urine <2.0 mg/dL (<2.0)
[2018-07-10 13:22] LABS: Basophils # (A) 0.1 k/uL (0-0.2); Basophils % (A) 1 %; Eosinophils # (A) 0.3 k/uL (0-0.7); Eosinophils % (A) 3 %; HCT 35.1 % (34.0-46.0); HGB 11.4 gm/dL (11.4-16.0); Lymphocytes % (A) 24 %; MCH 28.2 pg (25.0-35.0); MCHC 32.4 g/dL (31.0-37.0); Mean Platelet Volume 7.7; Monocytes # (A) 0.4 k/uL (0-1.0); Monocytes % (A) 5 %; Neutrophils # (A) 5.4 k/uL (1.3-7.7); Neutrophils % (A) 66 %; Platelet Count 296 k/uL (150-450); RBC 4.04 m/uL (3.80-5.40); RDW 14.6 % (11.5-15.5); WBC 8.3 k/uL (3.8-10.6)
[2018-07-10 13:34] LABS: ALT 21 U/L (9-52); AST 15 U/L (14-36); Albumin 3.6 g/dL (3.5-5.0); Alkaline Phosphatase 69 U/L (38-126); Anion Gap 9 mmol/L; Blood Urea Nitrogen 16 mg/dL (7-17); Calcium 8.7 mg/dL (8.4-10.2); Carbon Dioxide 24 mmol/L (22-30); Chloride 107 mmol/L (98-107); Glucose 101 mg/dL (74-99); Potassium 3.9 mmol/L (3.5-5.1); Sodium 140 mmol/L (137-145); Total Bilirubin 0.3 mg/dL (0.2-1.3); Total Protein 6.8 g/dL (6.3-8.2)
[2018-07-10] MEDS ORDERED: LISINOPRIL 20 MG TAB PO STA (13:49)
[2018-07-10 13:58] VITALS: RESP 18
--- NOTE | 2018-07-10 14:22 | CT ---
EXAMINATION TYPE: CT ChestAbdPelvis w con DATE OF EXAM: 07/10/2018 COMPARISON: CT chest 11/21/2016 HISTORY: Abnormal physical exam, abdominal mass CT DLP: 3126 mGycm Automated exposure control for dose reduction was used. CONTRAST: CT scan of the chest, abdomen and pelvis is performed without Oral Contrast and with IV Contrast, pat ient injected with 100 mL of Isovue 300. FINDINGS: Suspect a small hiatal hernia LUNGS: The lungs are grossly clear, there is no concerning parenchymal mass or nodule identified. T here is no pleural effusion or pneumothorax seen. The tracheobronchial tree is patent. MEDIASTINUM: There are no greater than 1 cm hilar or mediastinal lymph nodes. No pericardial effusi on is seen. AORTA: No significant abnormality is seen. OTHER: No additional significant abnormality is seen. LIVER/GB: The liver is enlarged. PANCREAS: No significant abnormality is seen. SPLEEN: Spleen is enlarged ADRENALS: No significant abnormality is seen. KIDNEYS: No significant abnormality is seen. REPRODUCTIVE ORGANS: Uterus is enlarged and somewhat bulky appearance. BOWEL: No significant abnorma lity is seen. FREE AIR: No Free Air visible. ASCITES: None seen. RETROPERITONEAL ADENOPATHY: No retroperitoneal adenopathy is seen. LYMPH NODES: No greater than 1 cm abdominal or pelvic lymph nodes are appreciated. URINARY BLADDER: No significant abnormality is seen. PELVIC ADENOPATHY: None visualized. OSSEOUS STRUCTURES: No significant abnormality is seen. IMPRESSION: Hepatosplenomegaly. Fibroid uterus suspected.
[2018-07-10] MEDS ORDERED: hydrALAZINE HCL 10 MG TAB PO STA (14:50)
[2018-07-10 15:33] VITALS: BP 149/94
[2018-07-10 15:35] VITALS: PULSE 68
== END 2018-07-10 15:34 | disposition home or self-care (01) ==
LOC: EC 11:29
DX: D25.9 Leiomyoma of uterus, unspecified (principal); R60.0 Localized edema; R63.5 Abnormal weight gain; I10 Essential (primary) hypertension; Z87.891 Personal history of nicotine dependence; Z88.0 Allergy status to penicillin; Z88.1 Allergy status to other antibiotic agents; Z91.048 Other nonmedicinal substance allergy status; Z90.721 Acquired absence of ovaries, unilateral; Z98.51 Tubal ligation status
CPT/HCPCS: 36415; 83880; 80053; 85025; 81001; 81025; 71046; 71260; 74177; 99285; Q9967

== ENCOUNTER 2018-07-10 22:37 | Emergency (ER) | payer OTHER ==
[2018-07-10] MEDS ORDERED: LORazepam 1 MG TAB PO STA (23:08)
[2018-07-10] MEDS ORDERED: SODIUM CHLORIDE 0.9% 1,000 ML IV STA (23:08)
--- NOTE | 2018-07-10 23:59 | ED ---
Chest Pain HPI - General Source: patient, RN notes reviewed, old records reviewed Mode of arrival: ambulatory Limitations: no limitations <Najma White - Last Filed: 07/12/18 14:14> <Eva Warren - Last Filed: 07/17/18 04:05> - General Chief Complaint: Chest Pain Stated Complaint: Chest Pain Time Seen by Provider: 07/10/18 22:53 - History of Present Illness Initial Comments: 38-year-old female presents her admitted complaint anxiety and chest pain. She reports was seen earlier today for increased swelling, and states she had CT abdomen and pelvis, and full lab work. She reports she has not been on blood pressure medications for a few months nad in her earlier ED visit she was discharged with them. Patient states she was getting ready for work this evening when she became dizzy, and complained of chest pain. (Najma White) - Related Data Home Medications Medication Instructions Recorded Confirmed Ibuprofen [Motrin Ib] 800 mg PO Q6H PRN 03/12/18 07/15/18 Previous Rx's Medication Instructions Recorded Furosemide [Lasix] 20 mg PO BID 10 Days #20 tab 07/10/18 Lisinopril 20 mg PO DAILY 10 Days #10 tab 07/10/18 LORazepam [Ativan] 0.5 mg PO TID 3 Days #9 tab 07/11/18 Furosemide [Lasix] 20 mg PO DAILY #10 tab 07/16/18 LORazepam [Ativan] 0.5 mg PO HS 3 Days #3 tab 07/16/18 Lisinopril 20 mg PO DAILY #10 tab 07/16/18 Allergies Allergy/AdvReac Type Severity Reaction Status Date / Time aspirin Allergy Unknown Verified 07/15/18 19:46 macadamia nut oil Allergy Unknown Verified 07/15/18 19:46 nitrofurantoin Allergy Swelling Verified 07/15/18 19:46 [From Macrobid] nitrofurantoin Allergy Swelling Verified 07/15/18 19:46 macrocrystalline [From Macrobid] Penicillins Allergy Unknown Verified 07/15/18 19:46 Review of Systems ROS Other: All systems not noted in ROS Statement are negative. <Najma White - Last Filed: 07/12/18 14:14> ROS Other: All systems not noted in ROS Statement are negative. <Eva Warren P - Last Filed: 07/17/18 04:05> ROS Statement: Those systems with pertinent positive or pertinent negative responses have been documented in the HPI. EKG Findings - EKG Comments: EKG Findings:: Normal sinus rhythm, a prolonged QT. Abnormal EKG. Ventricular rate is 76. [place] interval is 150. QRS duration 104. QT QTc is 4:30/43. <Najma White - Last Filed: 07/12/18 14:14> Past Medical History Past Medical History: Hypertension Additional Past Medical History / Comment(s): ovarian cyst, tumor cerebrai, neuropathy, migraines History of Any Multi-Drug Resistant Organisms: None Reported Past Surgical History: Section, Tubal Ligation Additional Past Surgical History / Comment(s): D&C, right ovary removed Past Psychological History: Anxiety, Depression Smoking Status: Former smoker Past Alcohol Use History: Rare Past Drug Use History: None Reported <Najma White - Last Filed: 07/12/18 14:14> General Exam Limitations: no limitations General appearance: alert, in no apparent distress Head exam: Present: atraumatic, normocephalic, normal inspection Eye exam: Present: normal appearance, PERRL, EOMI. Absent: scleral icterus, conjunctival injection, periorbital swelling ENT exam: Present: normal exam, mucous membranes moist Neck exam: Present: normal inspection. Absent: tenderness, meningismus, lymphadenopathy Respiratory exam: Present: normal lung sounds bilaterally. Absent: respiratory distress, wheezes, rales, rhonchi, stridor Cardiovascular Exam: Present: regular rate, normal rhythm, normal heart sounds. Absent: systolic murmur, diastolic murmur, rubs, gallop, clicks Back exam: Present: normal inspection Neurological exam: Present: alert, oriented X3, CN II-XII intact Psychiatric exam: Present: normal affect, normal mood, anxious <Najma White - Last Filed: 07/12/18 14:14> <Eva Warren P - Last Filed: 07/17/18 04:05> - General Exam Comments Initial Comments: 38 year old female, crying. She appears anxious. (Najma White) Vital Signs 07/10/18 07/10/18 07/11/18 22:50 23:14 01:31 Temperature 98 F 97.4 F L Pulse Rate 75 76 69 Respiratory 20 20 18 Rate Blood Pressure 133/78 141/80 140/91 O2 Sat by Pulse 97 97 99 Oximetry Chest Pain MDM <Sarah Whiteily - Last Filed: 07/12/18 14:14> <Eva Warren - Last Filed: 07/17/18 04:05> - MDM Patient is a 38 year old female in ED 2 times today, this episode she is complaining of anxiety and chest pain. Her CXR was normal a few hours ago, and normal CT abdomen and pelvis and lab work. AT this time we did add EKG and cardiac enzymes. This was negative for acute process. She was given 1mg ativan PO and is feeling much better. Discussed patiet symptoms with normal alb values based on the few hours of symptoms prior to arrive indicate that cardiac is unlikely etiology for patient pain at this time. She was discharged with cardiology and PCP follow up. Return parameters discussed. (Najma White) I was available for consultation in the emergency department. The history and physical exam were done by the midlevel provider. I was consulted for this patient's care. I reviewed the case with the midlevel provider and based on their presentation of the patient, I agree with the assessment, medical decision making and plan of care as documented. (Eva Warren) Disposition Is patient prescribed a controlled substance at d/c from ED?: No Time of Disposition: 01:20 <Najma White - Last Filed: 07/12/18 14:14> <Eva Warren - Last Filed: 07/17/18 04:05> Clinical Impression: Atypical chest pain, Anxiety Disposition: HOME SELF-CARE Condition: Good Instructions: Chest Pain (ED) Additional Instructions: Patient has a follow-up with primary care provider. Return to emergency department if any alarming signs or symptoms occur. Prescriptions: LORazepam [Ativan] 0.5 mg PO TID 3 Days #9 tab Referrals: None,Stated [Primary Care Provider] - 1-2 days Javan Murray DO [STAFF PHYSICIAN] - 1-2 days Juan Manuel Mccarthy MD [STAFF PHYSICIAN] - 1-2 days
[2018-07-11 00:28] LABS: Basophils # (A) 0.1 k/uL (0-0.2); Basophils % (A) 1 %; Eosinophils # (A) 0.2 k/uL (0-0.7); Eosinophils % (A) 2 %; HCT 33.3 % (34.0-46.0); HGB 11.1 gm/dL (11.4-16.0); Lymphocytes % (A) 25 %; MCH 28.6 pg (25.0-35.0); MCHC 33.3 g/dL (31.0-37.0); MCV 85.9 fL (80.0-100.0); Mean Platelet Volume 7.8; Monocytes # (A) 0.5 k/uL (0-1.0); Monocytes % (A) 6 %; Neutrophils # (A) 5.1 k/uL (1.3-7.7); Neutrophils % (A) 65 %; Platelet Count 266 k/uL (150-450); RBC 3.87 m/uL (3.80-5.40); RDW 14.9 % (11.5-15.5); WBC 7.9 k/uL (3.8-10.6)
[2018-07-11 00:33] LABS: Partial Thromboplastin Time 23.5 sec (22.0-30.0); Prothrombin Time 9.8 sec (9.0-12.0)
[2018-07-11 00:46] LABS: ALT 17 U/L (9-52); AST 15 U/L (14-36); Albumin 3.5 g/dL (3.5-5.0); Alkaline Phosphatase 67 U/L (38-126); Anion Gap 8 mmol/L; Blood Urea Nitrogen 16 mg/dL (7-17); Calcium 8.6 mg/dL (8.4-10.2); Carbon Dioxide 23 mmol/L (22-30); Chloride 107 mmol/L (98-107); Glucose 121 mg/dL (74-99); Potassium 3.7 mmol/L (3.5-5.1); Sodium 138 mmol/L (137-145); Total Bilirubin 0.2 mg/dL (0.2-1.3); Total Protein 6.7 g/dL (6.3-8.2)
[2018-07-11 00:52] LABS: Creatine Kinase 76 U/L (30-135)
[2018-07-11 01:05] LABS: Creatine Kinase MB 0.8 ng/mL (0.0-2.4); Troponin I <0.012 ng/mL (0.000-0.034)
[2018-07-11 01:31] VITALS: BP 140/91; PULSE 69; RESP 18; TEMP 97.4
--- NOTE | 2018-07-12 01:29 | CDI ---
Documentation Clarification OP Dear KIMBERLY Joy/ Kalia Barreto MD Please do addendum to ED report for complete HPI, Physical Exam and MDM. Thank you, Aster [employer] If you have any questions, please contact [employer] at [phone] [facility]
== END 2018-07-11 01:35 | disposition home or self-care (01) ==
LOC: EC 22:37
DX: F41.9 Anxiety disorder, unspecified (principal); R07.9 Chest pain, unspecified; R42 Dizziness and giddiness; Z87.891 Personal history of nicotine dependence; Z86.69 Personal history of other diseases of the nervous system and sense organs; Z87.42 Personal history of other diseases of the female genital tract; Z90.721 Acquired absence of ovaries, unilateral; Z98.51 Tubal ligation status; Z88.0 Allergy status to penicillin; Z88.1 Allergy status to other antibiotic agents; Z88.6 Allergy status to analgesic agent; Z91.018 Allergy to other foods
CPT/HCPCS: 99285 ×2; 96360 ×2; 96361 ×2; 36415; 93005; 83880; 80053; 82550; 82553; 83735; 84484; 85025; 85610; 85730; 81001; 81025; 71046; 71260; 74177; Q9967

== ENCOUNTER 2018-07-15 19:25 | Emergency (ER) | payer OTHER ==
[2018-07-15 19:31] VITALS: TEMP 98.3
[2018-07-15] MEDS ORDERED: SODIUM CHLORIDE 0.9% 1,000 ML IV STA (19:57)
[2018-07-15] MEDS ORDERED: ASPIRIN 325 MG TAB PO STA (20:05)
[2018-07-15] MEDS ORDERED: LABETALOL 5 MG/ML VIAL MDV IVP STA (20:07)
--- NOTE | 2018-07-15 20:07 | ED ---
Chest Pain HPI - General Chief Complaint: Chest Pain Stated Complaint: CHEST PAIN,ANNEMARIE Time Seen by Provider: 07/15/18 19:35 Source: patient, RN notes reviewed, old records reviewed Mode of arrival: ambulatory Limitations: no limitations - History of Present Illness Initial Comments: Patient is a 38-year-old female who presents emergency department stay with chief complaint of onset of chest pain shortness of breath. She reports it started around 6 PM. She states that she woke up from sleeping tearing for work. Patient reports that she was seen in emergency department for fluid retention. She reports that since starting Lasix on she lost a total of 36 pounds". Patient states that when she was weighed today and her skin she states that she regained 30 of the pounds and 1 day. Patient states that she does have chest pain and left-sided reading towards her shoulder blades. She denies fevers or chills, nausea. Patient states that she is supposed follow-up with Dr. Levi. Her appointment is July 24. - Related Data Home Medications Medication Instructions Recorded Confirmed Ibuprofen [Motrin Ib] 800 mg PO Q6H PRN 03/12/18 07/15/18 Previous Rx's Medication Instructions Recorded Furosemide [Lasix] 20 mg PO BID 10 Days #20 tab 07/10/18 Lisinopril 20 mg PO DAILY 10 Days #10 tab 07/10/18 LORazepam [Ativan] 0.5 mg PO TID 3 Days #9 tab 07/11/18 Furosemide [Lasix] 20 mg PO DAILY #10 tab 07/16/18 LORazepam [Ativan] 0.5 mg PO HS 3 Days #3 tab 07/16/18 Lisinopril 20 mg PO DAILY #10 tab 07/16/18 Allergies Allergy/AdvReac Type Severity Reaction Status Date / Time aspirin Allergy Unknown Verified 07/15/18 19:46 macadamia nut oil Allergy Unknown Verified 07/15/18 19:46 nitrofurantoin Allergy Swelling Verified 07/15/18 19:46 [From Macrobid] nitrofurantoin Allergy Swelling Verified 07/15/18 19:46 macrocrystalline [From Macrobid] Penicillins Allergy Unknown Verified 07/15/18 19:46 Review of Systems ROS Statement: Those systems with pertinent positive or pertinent negative responses have been documented in the HPI. ROS Other: All systems not noted in ROS Statement are negative. EKG Findings - EKG Comments: EKG Findings:: EKG shows a sinus diagnosis of a T-wave abnormality. Prolonged QT. Abnormal EKG. Ventricular rate of 84 bpm. MN interval is 150 ms. QRS duration 80 ms. QT QTc is 396/467 ms. No evidence of ST elevation. Past Medical History Past Medical History: Hypertension Additional Past Medical History / Comment(s): ovarian cyst, tumor cerebrai, neuropathy, migraines, Fluid retention issues. History of Any Multi-Drug Resistant Organisms: None Reported Past Surgical History: Section, Tubal Ligation Additional Past Surgical History / Comment(s): D&C, right ovary removed Past Psychological History: Anxiety, Depression Smoking Status: Former smoker Past Alcohol Use History: Rare Past Drug Use History: None Reported General Exam - General Exam Comments Initial Comments: 38-year-old female. Patient appears in no significant distress. Arrived quite hypertensive at 190/121. Limitations: no limitations General appearance: alert, in no apparent distress Head exam: Present: atraumatic, normocephalic, normal inspection Eye exam: Present: normal appearance, PERRL, EOMI. Absent: scleral icterus, conjunctival injection, periorbital swelling ENT exam: Present: normal exam, mucous membranes moist Neck exam: Present: normal inspection. Absent: tenderness, meningismus, lymphadenopathy Respiratory exam: Present: normal lung sounds bilaterally. Absent: respiratory distress, wheezes, rales, rhonchi, stridor Cardiovascular Exam: Present: regular rate, normal rhythm, normal heart sounds. Absent: systolic murmur, diastolic murmur, rubs, gallop, clicks GI/Abdominal exam: Present: soft, normal bowel sounds. Absent: distended, tenderness, guarding, rebound, rigid Extremities exam: Present: normal inspection, full ROM, normal capillary refill. Absent: tenderness, pedal edema, joint swelling, calf tenderness Back exam: Present: normal inspection Neurological exam: Present: alert, oriented X3, CN II-XII intact Psychiatric exam: Present: normal affect, normal mood Course Vital Signs 07/15/18 07/15/18 07/15/18 19:27 20:26 20:30 Temperature 98.3 F Pulse Rate 93 82 78 Respiratory 18 Rate Blood Pressure 182/121 146/94 146/94 O2 Sat by Pulse 100 98 99 Oximetry 07/15/18 07/15/18 07/16/18 21:00 21:30 00:37 Temperature Pulse Rate 75 70 85 Respiratory 17 Rate Blood Pressure 125/78 130/78 136/94 O2 Sat by Pulse 99 97 100 Oximetry Chest Pain [facility] Patient is a 38-year-old female who presents to manage her safety plan onset of chest pain for 2 hours. She is evaluated emergency room last week for similar complaints. This EKG has no acute changes. Patient has a normal initial troponin, repeated troponin was also negative. She also complains of concerns for weight gain and then loss after starting Lasix. Patient has no evidence of acute heart failure. Lungs are clear to auscultation. She has no significant edema noted. Patient's BNP is less than 11. Chest x-ray was normal no effusions. Patient did arrive to emergency department quite hypertensive blood pressure is 181/121. Repeat was 190/120. Her to give the Patient labetalol. Blood pressure decreased appropriately. Patient's symptoms of chest pressure instructed resolved. I do question a component of anxiety related to her discomfort. Patient's friend also agrees. Patient has a follow-up with Dr. Guy [facility]. She does state she needs refills of her blood pressure medication that was completed last week. Patient agrees to treatment plan will comply. Term parameters were discussed. I do also question Patient may have some sleep apnea. Disposition Clinical Impression: Chest pain Disposition: HOME SELF-CARE Condition: Good Instructions: Chest Pain (ED) Additional Instructions: Patient advised to follow up with cardiology and pulmonology. Patient should see pulmonology for sleep study for sleep apnea. Return to ED if any alamring signs or symptoms occur. Prescriptions: Furosemide [Lasix] 20 mg PO DAILY #10 tab Lisinopril 20 mg PO DAILY #10 tab LORazepam [Ativan] 0.5 mg PO HS 3 Days #3 tab Is patient prescribed a controlled substance at d/c from ED?: No Referrals: None,Stated [Primary Care Provider] - 1-2 days Juan Manuel Mccarthy MD [STAFF PHYSICIAN] - 1-2 days Kathy Hewitt MD [STAFF PHYSICIAN] - 1-2 days Time of Disposition: 00:13
[2018-07-15 20:40] LABS: Basophils # (A) 0.1 k/uL (0-0.2); Basophils % (A) 1 %; Eosinophils # (A) 0.2 k/uL (0-0.7); Eosinophils % (A) 2 %; HCT 34.4 % (34.0-46.0); HGB 11.3 gm/dL (11.4-16.0); Lymphocytes # (A) 2.3 k/uL (1.0-4.8); Lymphocytes % (A) 27 %; MCH 28.1 pg (25.0-35.0); MCHC 32.8 g/dL (31.0-37.0); MCV 85.7 fL (80.0-100.0); Mean Platelet Volume 7.6; Monocytes # (A) 0.5 k/uL (0-1.0); Monocytes % (A) 5 %; Neutrophils # (A) 5.4 k/uL (1.3-7.7); Neutrophils % (A) 63 %; Platelet Count 297 k/uL (150-450); RBC 4.01 m/uL (3.80-5.40); RDW 14.9 % (11.5-15.5); WBC 8.6 k/uL (3.8-10.6)
[2018-07-15 20:49] LABS: ALT 15 U/L (9-52); AST 13 U/L (14-36); Albumin 3.6 g/dL (3.5-5.0); Alkaline Phosphatase 58 U/L (38-126); Anion Gap 8 mmol/L; Blood Urea Nitrogen 20 mg/dL (7-17); Calcium 8.8 mg/dL (8.4-10.2); Carbon Dioxide 23 mmol/L (22-30); Chloride 110 mmol/L (98-107); Glucose 120 mg/dL (74-99); Magnesium 1.9 mg/dL (1.6-2.3); Potassium 4.1 mmol/L (3.5-5.1); Sodium 141 mmol/L (137-145); Total Bilirubin 0.2 mg/dL (0.2-1.3); Total Protein 6.7 g/dL (6.3-8.2)
[2018-07-15 20:52] LABS: Creatine Kinase 80 U/L (30-135)
[2018-07-15 20:53] LABS: Partial Thromboplastin Time 23.7 sec (22.0-30.0); Prothrombin Time 10.2 sec (9.0-12.0)
[2018-07-15 21:05] LABS: Troponin I <0.012 ng/mL (0.000-0.034)
--- NOTE | 2018-07-15 21:06 | XR ---
EXAMINATION TYPE: XR chest 2V DATE OF EXAM: 07/15/2018 COMPARISON: 07/10/2018 HISTORY: Chest pain TECHNIQUE: Frontal and lateral views of the chest are obtained. FINDINGS: Heart and mediastinum are normal. Lungs are clear. Costophrenic angles are clear. There ar e chest leads. Bony thorax appears intact. IMPRESSION: Normal chest. No change.
[2018-07-16 00:38] VITALS: BP 136/94; PULSE 85; RESP 17
== END 2018-07-16 00:38 | disposition home or self-care (01) ==
LOC: EC 19:25
DX: R07.9 Chest pain, unspecified (principal); R06.02 Shortness of breath; I10 Essential (primary) hypertension; Z87.891 Personal history of nicotine dependence; Z88.6 Allergy status to analgesic agent; Z88.1 Allergy status to other antibiotic agents; Z88.0 Allergy status to penicillin; Z91.018 Allergy to other foods
CPT/HCPCS: 36415; 71046; 80053; 82550; 82553; 83735; 83880; 84484; 85025; 85610; 85730; 96361; 96374; 99285

== ENCOUNTER → 2018-10-30 | Outpatient (CLI) | payer OTHER ==
[2018-10-30 11:38] LABS: Blood Urea Nitrogen 17 mg/dL (7-17)
[2018-10-30 12:57] LABS: HCT 34.1 % (34.0-46.0); MCH 28.8 pg (25.0-35.0); MCHC 32.4 g/dL (31.0-37.0); MCV 89.1 fL (80.0-100.0); Mean Platelet Volume 8.1; Platelet Count 279 k/uL (150-450); RBC 3.83 m/uL (3.80-5.40); RDW 15.4 % (11.5-15.5); WBC 8.1 k/uL (3.8-10.6)
== END ==
LOC: LABPAT 10:28
PROVIDERS: ATTEND Internal Medicine Interventional Cardiology
DX: Z01.812 Encounter for preprocedural laboratory examination (principal); I10 Essential (primary) hypertension; R07.9 Chest pain, unspecified
CPT/HCPCS: 82565; 84520; 85027

== ENCOUNTER 2018-11-08 06:14 | Day surgery (SDC) | payer OTHER ==
[2018-11-06 08:35] VITALS: BMI 53.2
[2018-11-08] MEDS ORDERED: ALPRAZolam 0.25 MG TAB PO PRN (06:16)
[2018-11-08] MEDS ORDERED: SODIUM CHLORIDE 0.9% 1,000 ML in EMPTY BAG 1 BAG IV ONE (06:16)
[2018-11-08] MEDS ORDERED: ATORVASTATIN 80 MG TAB PO STA (06:16)
[2018-11-08] MEDS ORDERED: ALPRAZolam 0.5 MG TAB PO PRN (06:16)
[2018-11-08] MEDS ORDERED: NITROGLYCERIN SL TABS 0.4 MG TAB SUBLINGUAL PRN (06:16)
[2018-11-08 06:54] VITALS: TEMP 98.7
[2018-11-08] MEDS ORDERED: LIDOCAINE 1% INJ 10MG/ML (20 ML MDV) ONE (07:36)
[2018-11-08] MEDS ORDERED: HEPARIN SODIUM 1,000 UN/ML (10ML VL) ONE (07:36)
[2018-11-08] MEDS ORDERED: VERAPAMIL 2.5 MG/ML 2 ML AMP ONE (07:36)
[2018-11-08] MEDS ORDERED: MIDAZOLAM 2 MG/2 ML VIAL IV ONE ×3 (08:00→08:08)
[2018-11-08] MEDS ORDERED: LIDOCAINE 1% INJ 10MG/ML (20 ML MDV) SQ ONE (08:02)
[2018-11-08] MEDS ORDERED: VERAPAMIL SYRINGE (5 MG/10 ML) INTRAARTER ONE (08:03)
[2018-11-08] MEDS ORDERED: fentaNYL (PF) 50 MCG/ML 2 ML AMP ONE (08:05)
[2018-11-08] MEDS ORDERED: HEPARIN SODIUM 1,000 UN/ML (10ML VL) IV ONE (08:06)
[2018-11-08] MEDS ORDERED: fentaNYL (PF) 50 MCG/ML 2 ML AMP IV ONE (08:08)
[2018-11-08] MEDS ORDERED: IOPAMIDOL-370 150ML BTL INJ ONE (08:16)
[2018-11-08] MEDS ORDERED: RX INFO: IV CONTRAST WAS GIVEN 1 EACH MISC MISCELLANE PRN (08:27)
[2018-11-08] MEDS ORDERED: SODIUM CHLORIDE 0.9% 1,000 ML IV SCH (08:30)
[2018-11-08 09:19] VITALS: RESP 18
[2018-11-08 10:58] VITALS: BP 160/94; PULSE 82
--- NOTE | 2018-11-08 11:08 | CC ---
CARDIAC CATHETERIZATION REPORT DATE OF SERVICE: November 08, 2018 PERFORMING PHYSICIAN: Pierce Levi MD, educational coordinator. PROCEDURE PERFORMED: 1. Selective right and left coronary angiogram. 2. Left heart catheterization. INDICATION: This is a pleasant 38-year-old female patient with hypertension and dyslipidemia and very significant family history of coronary artery disease involving the father and mother, was experiencing intermittent episodes of chest discomfort concerning for angina. A heart catheterization was advised. APPROACH: Right radial artery. COMPLICATION: None. LEVEL OF SEDATION: Moderate with sedation length of 14 minutes. PROCEDURE DESCRIPTION: After obtaining an informed consent, the patient was brought to the cardiac mobile lab technician. The right radial artery was cannulated using micropuncture technique and a micropuncture wire passed easily then I placed a 6-Maltese sheath in the right radial artery. After that, I did selective right and left coronary angiogram using JR4 and JL3.5 catheters. Left heart catheterization was performed using the JR4 catheter which crossed the aortic valve then I pullback across aortic valve after I flushed the catheter. The procedure was completed without any complication. Before the procedure started, the patient was given 10,000 units of heparin IV and 2 mg of verapamil IA. SELECTIVE CORONARY ANGIOGRAM: 1. Right coronary artery is a medium caliber vessel and is a nondominant vessel, appeared to have mild disease only. 2. The left main is angiographically normal. It bifurcates into left circumflex and left anterior descending artery. 3. The left circumflex is a large caliber vessel. It is a dominant vessel. The proximal circumflex appeared to be angiographically normal. It gives rise into a medium-sized OM 1, which appeared to be normal. The mid circumflex is normal as well and gives rise into a second OM, which appeared to be a small to medium caliber vessel and seems to be normal. The circumflex distally is normal and bifurcates into PDA and PLV branches both are angiographically normal. 4. The left LAD is angiographically normal. The LAD gives rise into the first and second diagonal branches, both are angiographically normal. HEMODYNAMICS: The left ventricular end-diastolic pressure was 12 mmHg without significant gradient across the aortic valve. CONCLUSION: 1. Normal coronary angiogram. 2. Normal left ventricular end-diastolic pressure. POSTPROCEDURE MANAGEMENT: Medical treatment. MMODL / IJN: [id number] /
== END 2018-11-08 13:00 | disposition home or self-care (01) ==
LOC: CATHCVL 06:14
PROVIDERS: ATTEND Internal Medicine Interventional Cardiology
DX: I25.110 Atherosclerotic heart disease of native coronary artery with unstable angina pectoris (principal); I10 Essential (primary) hypertension; E78.1 Pure hyperglyceridemia; E78.2 Mixed hyperlipidemia; E66.9 Obesity, unspecified; Z82.49 Family history of ischemic heart disease and other diseases of the circulatory system; Z72.0 Tobacco use; Z79.899 Other long term (current) drug therapy; Z68.43 Body mass index [BMI] 50.0-59.9, adult
CPT/HCPCS: 93458; C1769; C1894; J2250; J2001; J3010; J1644; Q9967

== ENCOUNTER 2019-07-17 13:58 | Emergency (ER) | payer OTHER ==
[2019-07-17] MEDS ORDERED: LORazepam 1 MG TAB PO STA (14:35)
[2019-07-17 15:27] LABS: Basophils # (A) 0.1 k/uL (0-0.2); Basophils % (A) 1 %; Eosinophils # (A) 0.1 k/uL (0-0.7); Eosinophils % (A) 1 %; HCT 35.7 % (34.0-46.0); HGB 11.4 gm/dL (11.4-16.0); Lymphocytes # (A) 1.7 k/uL (1.0-4.8); Lymphocytes % (A) 21 %; MCH 27.1 pg (25.0-35.0); MCHC 31.9 g/dL (31.0-37.0); Mean Platelet Volume 7.7; Monocytes # (A) 0.3 k/uL (0-1.0); Monocytes % (A) 4 %; Neutrophils # (A) 5.9 k/uL (1.3-7.7); Neutrophils % (A) 72 %; Platelet Count 333 k/uL (150-450); RDW 15.4 % (11.5-15.5); WBC 8.2 k/uL (3.8-10.6)
--- NOTE | 2019-07-17 15:34 | ED ---
Chest Pain HPI - General Chief Complaint: Chest Pain Stated Complaint: Chest pain Time Seen by Provider: 07/17/19 14:23 Source: patient, RN notes reviewed, old records reviewed Mode of arrival: ambulatory Limitations: no limitations - History of Present Illness Initial Comments: This Patient is a 31-year-old female, she presents today for concerns for chest discomfort and anxiety. Patient believes that she's having anxiety attack lately she's been taking her Ativan more frequently over the past 2 weeks. - Related Data Home Medications Medication Instructions Recorded Confirmed Bumetanide [BUMEX] 1 mg PO BID 11/06/18 11/08/18 Lisinopril 20 mg PO BID 11/06/18 11/08/18 Previous Rx's Medication Instructions Recorded LORazepam [Ativan] 1 mg PO TID 3 Days #9 tab 07/17/19 Allergies Allergy/AdvReac Type Severity Reaction Status Date / Time aspirin Allergy has had Verified 07/17/19 14:12 itching and hives in past macadamia nut oil Allergy Unknown Verified 07/17/19 14:12 nitrofurantoin Allergy Swelling Verified 07/17/19 14:12 [From Macrobid] nitrofurantoin Allergy Swelling Verified 07/17/19 14:12 macrocrystalline [From Macrobid] Penicillins Allergy Unknown Verified 07/17/19 14:12 Review of Systems ROS Statement: Those systems with pertinent positive or pertinent negative responses have been documented in the HPI. ROS Other: All systems not noted in ROS Statement are negative. EKG Findings - EKG Comments: EKG Findings:: EKG shows normal sinus rhythm normal EKG. Ventricular rate of 65 bpm. Verbal is 158 ms. QRS duration is 98 ms. QT QTc is 452/470 ms. Past Medical History Past Medical History: Hypertension Additional Past Medical History / Comment(s): ovarian cyst, tumor cerebrai, neuropathy, migraines, Fluid retention issues. History of Any Multi-Drug Resistant Organisms: None Reported Past Surgical History: Section, Tubal Ligation Additional Past Surgical History / Comment(s): D&C, right ovary removed Past Psychological History: Anxiety, Depression Smoking Status: Current some day smoker Past Alcohol Use History: Rare Past Drug Use History: Marijuana General Exam - General Exam Comments Initial Comments: tearful anxious 39 year old female, no distress. Limitations: no limitations General appearance: alert, in no apparent distress Head exam: Present: atraumatic, normocephalic, normal inspection Eye exam: Present: normal appearance, PERRL, EOMI. Absent: scleral icterus, conjunctival injection, periorbital swelling ENT exam: Present: normal exam, mucous membranes moist Neck exam: Present: normal inspection. Absent: tenderness, meningismus, lymphadenopathy Respiratory exam: Present: normal lung sounds bilaterally. Absent: respiratory distress, wheezes, rales, rhonchi, stridor Cardiovascular Exam: Present: regular rate, normal rhythm, normal heart sounds. Absent: systolic murmur, diastolic murmur, rubs, gallop, clicks Back exam: Present: normal inspection Neurological exam: Present: alert, oriented X3, CN II-XII intact Psychiatric exam: Present: normal affect, normal mood Course Vital Signs 07/17/19 07/17/19 14:10 16:56 Temperature 97.9 F 98.4 F Pulse Rate 74 78 Respiratory 20 16 Rate Blood Pressure 156/80 138/70 O2 Sat by Pulse 99 98 Oximetry Chest Pain MDM - MDM 39 year old female with panic attacks, axiety and chest pain. She was given 1mg po ativan and feels better. EKG and trop are normal. Patient has no fever or other complaints. Patient has no other symptoms. Discussed patient needs to follow up with psychiatry in regards to anxiety and frequent panic attacks. Will DC with Rx for ativan. MAPS report is clear. Disposition Clinical Impression: Anxiety, Chest pain Disposition: HOME SELF-CARE Condition: Good Instructions (If sedation given, give patient instructions): Chest Pain (ED) Additional Instructions: Please use medication as discussed. Please follow up with family doctor if symptoms have not improved over the next two days. Please return to the emergency room if your symptoms increase or worsen or for any other concerns. Prescriptions: LORazepam [Ativan] 1 mg PO TID 3 Days #9 tab Is patient prescribed a controlled substance at d/c from ED?: No Referrals: None,Stated [Primary Care Provider] - 1-2 days Time of Disposition: 16:46
[2019-07-17 15:36] LABS: ALT 17 U/L (9-52); AST 15 U/L (14-36); African American GFR (CKD) >90 (>60 ml/min/1.73 sqM); Albumin 4.3 g/dL (3.5-5.0); Alkaline Phosphatase 87 U/L (38-126); Anion Gap 11 mmol/L; Blood Urea Nitrogen 11 mg/dL (7-17); Calcium 9.4 mg/dL (8.4-10.2); Carbon Dioxide 25 mmol/L (22-30); Chloride 106 mmol/L (98-107); Glucose 104 mg/dL (74-99); Potassium 3.6 mmol/L (3.5-5.1); Sodium 142 mmol/L (137-145); Total Bilirubin 0.3 mg/dL (0.2-1.3); Total Protein 7.6 g/dL (6.3-8.2)
[2019-07-17 15:38] LABS: Partial Thromboplastin Time 25.3 sec (22.0-30.0); Prothrombin Time 10.5 sec (9.0-12.0)
[2019-07-17 17:01] VITALS: BP 138/70; PULSE 78; RESP 16; TEMP 98.4
== END 2019-07-17 16:56 | disposition home or self-care (01) ==
LOC: EC 13:58
DX: R07.9 Chest pain, unspecified (principal); F41.9 Anxiety disorder, unspecified; F41.0 Panic disorder [episodic paroxysmal anxiety]; I10 Essential (primary) hypertension; G62.9 Polyneuropathy, unspecified; F17.200 Nicotine dependence, unspecified, uncomplicated; Z79.899 Other long term (current) drug therapy; Z88.6 Allergy status to analgesic agent; Z88.1 Allergy status to other antibiotic agents; Z88.0 Allergy status to penicillin; Z88.8 Allergy status to other drugs, medicaments and biological substances
CPT/HCPCS: 36415; 80053; 84484; 85025; 85610; 85730; 93005; 99285

== ENCOUNTER 2020-01-07 11:16 | Emergency (ER) | payer OTHER ==
[2020-01-07 12:02] LABS: Basophils # (A) 0.1 k/uL (0-0.2); Basophils % (A) 1 %; Eosinophils # (A) 0.3 k/uL (0-0.7); Eosinophils % (A) 4 %; HCT 35.9 % (34.0-46.0); HGB 11.6 gm/dL (11.4-16.0); Lymphocytes % (A) 22 %; MCH 28.3 pg (25.0-35.0); MCHC 32.4 g/dL (31.0-37.0); MCV 87.3 fL (80.0-100.0); Mean Platelet Volume 8.4; Monocytes # (A) 0.6 k/uL (0-1.0); Monocytes % (A) 7 %; Neutrophils # (A) 5.8 k/uL (1.3-7.7); Neutrophils % (A) 65 %; Platelet Count 269 k/uL (150-450); RBC 4.11 m/uL (3.80-5.40); RDW 15.3 % (11.5-15.5); WBC 8.9 k/uL (3.8-10.6)
[2020-01-07 12:05] LABS: Appearance,Urine Clear (Clear); Bilirubin,Urine Negative (Negative); Blood,Urine Negative (Negative); Color,Urine Colorless; Glucose,Urine (UA) Negative (Negative); Ketones,Urine Negative (Negative); Leukocyte Esterase,Urine Negative (Negative); Nitrite,Urine Negative (Negative); Protein,Urine Negative (Negative); Specific Gravity,Urine 1.009 (1.001-1.035); Urobilinogen,Urine <2.0 mg/dL (<2.0)
[2020-01-07 12:10] LABS: ALT 13 U/L (4-34); AST 18 U/L (14-36); African American GFR (CKD) >90 (>60 ml/min/1.73 sqM); Albumin 3.8 g/dL (3.5-5.0); Alkaline Phosphatase 76 U/L (38-126); Anion Gap 10 mmol/L; Blood Urea Nitrogen 13 mg/dL (7-17); Carbon Dioxide 26 mmol/L (22-30); Chloride 100 mmol/L (98-107); Glucose 103 mg/dL (74-99); Magnesium 1.8 mg/dL (1.6-2.3); Non-African American GFR(CKD) >90 (>60 ml/min/1.73 sqM); Potassium 4.4 mmol/L (3.5-5.1); Sodium 136 mmol/L (137-145); Total Bilirubin 0.2 mg/dL (0.2-1.3); Total Protein 6.7 g/dL (6.3-8.2)
[2020-01-07 13:12] VITALS: BP 152/88; PULSE 77; RESP 18
--- NOTE | 2020-01-07 13:33 | ED ---
General Adult HPI - General Chief complaint: Recheck/Abnormal Lab/Rx Stated complaint: blood pressure issues Time Seen by Provider: 01/07/20 11:23 Source: patient, RN notes reviewed Mode of arrival: ambulatory Limitations: no limitations - History of Present Illness Initial comments: This is a 39-year-old female history of hypertension and heroin abuse for which she states this is distorting heroin last night who is here because her blood pressure has been up and down as well as her pulse rate. She states she did sleep this morning but she's feeling very anxious. She denies any overt chest pain fevers chills nausea vomiting sweats or other symptoms she states she did take a blood pressure medication last evening. She does believe she is withd rawing. No other complaints this time other than the anxiety she was tearful during the interview she has any thoughts of hurting herself or anyone else. - Related Data Home Medications Medication Instructions Recorded Confirmed Bumetanide [BUMEX] 1 mg PO BID 11/06/18 01/07/20 Lisinopril 20 mg PO BID 12/23/19 01/07/20 Previous Rx's Medication Instructions Recorded ALPRAZolam [Xanax] 0.25 mg PO BID PRN 3 Days #6 tab 01/07/20 cloNIDine HCL [Catapres] 0.1 mg PO BID #6 tab 01/07/20 Allergies Allergy/AdvReac Type Severity Reaction Status Date / Time Pertussis Vaccines Allergy Unknown Unknown Verified 01/07/20 12:06 aspirin Allergy has had Verified 01/07/20 12:06 itching and hives in past macadamia nut oil Allergy Unknown Verified 01/07/20 12:06 nitrofurantoin Allergy Swelling Verified 01/07/20 12:06 [From Macrobid] nitrofurantoin Allergy Swelling Verified 01/07/20 12:06 macrocrystalline [From Macrobid] Penicillins Allergy Unknown Verified 01/07/20 12:06 Review of Systems ROS Statement: Those systems with pertinent positive or pertinent negative responses have been documented in the HPI. ROS Other: All systems not noted in ROS Statement are negative. Past Medical History Past Medical History: Hypertension Additional Past Medical History / Comment(s): obesity History of Any Multi-Drug Resistant Organisms: None Reported Past Surgical History: Section, Tubal Ligation Additional Past Surgical History / Comment(s): D&C, right ovary removed Past Psychological History: Anxiety, Depression Past Alcohol Use History: None Reported, Rare Past Drug Use History: Heroin, Marijuana General Exam - General Exam Comments Initial Comments: This is a well-developed well-nourished awake alert oriented x 3 female Limitations: no limitations General appearance: alert, anxious Head exam: Present: atraumatic, normocephalic, normal inspection Eye exam: Present: normal appearance, PERRL, EOMI. Absent: scleral icterus, conjunctival injection, periorbital swelling ENT exam: Present: normal exam, mucous membranes moist Neck exam: Present: normal inspection. Absent: tenderness, meningismus, lymphadenopathy Respiratory exam: Present: normal lung sounds bilaterally. Absent: respiratory distress, wheezes, rales, rhonchi, stridor Cardiovascular Exam: Present: regular rate, normal rhythm, normal heart sounds. Absent: systolic murmur, diastolic murmur, rubs, gallop, clicks GI/Abdominal exam: Present: soft, normal bowel sounds. Absent: distended, tenderness, guarding, rebound, rigid Extremities exam: Present: normal inspection, full ROM, normal capillary refill. Absent: tenderness, pedal edema, joint swelling, calf tenderness Back exam: Present: normal inspection Neurological exam: Present: alert, oriented X3, CN II-XII intact Psychiatric exam: Present: normal affect, normal mood Skin exam: Present: warm, dry, intact, normal color. Absent: rash Course Vital Signs 01/07/20 01/07/20 01/07/20 11:19 11:30 12:25 Temperature 99.3 F Pulse Rate 98 88 78 Respiratory 18 20 20 Rate Blood Pressure 161/97 160/105 164/99 O2 Sat by Pulse 100 99 99 Oximetry 01/07/20 13:07 Temperature Pulse Rate 77 Respiratory 18 Rate Blood Pressure 152/88 O2 Sat by Pulse 99 Oximetry Medical Decision Making - Medical Decision Making I did reevaluate patient on multiple occasions she is very anxious she believes she is withdrawing she'll be placed on appropriate medication she was cautioned not use her BRETT inhibitor during the treatment and she will be an alpha johana - Lab Data Result diagrams: 01/07/20 11:44 01/07/20 11:44 Lab Results 01/07/20 01/07/20 01/07/20 Range/Units 11:44 11:44 Unknown WBC 8.9 (3.8-10.6) k/uL RBC 4.11 (3.80-5.40) m/uL Hgb 11.6 (11.4-16.0) gm/dL Hct 35.9 (34.0-46.0) % MCV 87.3 (80.0-100.0) fL MCH 28.3 (25.0-35.0) pg MCHC 32.4 (31.0-37.0) g/dL RDW 15.3 (11.5-15.5) % Plt Count 269 (150-450) k/uL Neutrophils % 65 % Lymphocytes % 22 % Monocytes % 7 % Eosinophils % 4 % Basophils % 1 % Neutrophils # 5.8 (1.3-7.7) k/uL Lymphocytes # 2.0 (1.0-4.8) k/uL Monocytes # 0.6 (0-1.0) k/uL Eosinophils # 0.3 (0-0.7) k/uL Basophils # 0.1 (0-0.2) k/uL Sodium 136 L (137-145) mmol/L Potassium 4.4 (3.5-5.1) mmol/L Chloride 100 (98-107) mmol/L Carbon Dioxide 26 (22-30) mmol/L Anion Gap 10 mmol/L BUN 13 (7-17) mg/dL Creatinine 0.58 (0.52-1.04) mg/dL Est GFR (CKD-EPI)AfAm >90 (>60 ml/min/1.73 sqM) Est GFR (CKD-EPI)NonAf >90 (>60 ml/min/1.73 sqM) Glucose 103 H (74-99) mg/dL Calcium 9.0 (8.4-10.2) mg/dL Magnesium 1.8 (1.6-2.3) mg/dL Total Bilirubin 0.2 (0.2-1.3) mg/dL AST 18 (14-36) U/L ALT 13 (4-34) U/L Alkaline Phosphatase 76 (38-126) U/L Total Protein 6.7 (6.3-8.2) g/dL Albumin 3.8 (3.5-5.0) g/dL Urine Color Colorless Urine Appearance Clear (Clear) Urine pH 5.0 (5.0-8.0) Ur Specific [place] 1.009 (1.001-1.035) Urine Protein Negative (Negative) Urine Glucose (UA) Negative (Negative) Urine Ketones Negative (Negative) Urine Blood Negative (Negative) Urine Nitrite Negative (Negative) Urine Bilirubin Negative (Negative) Urine Urobilinogen <2.0 (<2.0) mg/dL Ur Leukocyte Esterase Negative (Negative) Disposition Clinical Impression: Hypertension, Heroin withdrawal Disposition: HOME SELF-CARE Condition: Good Instructions (If sedation given, give patient instructions): Hypertension (ED), Anxiety (ED) Prescriptions: cloNIDine HCL [Catapres] 0.1 mg PO BID #6 tab ALPRAZolam [Xanax] 0.25 mg PO BID PRN 3 Days #6 tab PRN Reason: Anxiety Is patient prescribed a controlled substance at d/c from ED?: Yes When asked, does pt state using other controlled substances?: No If prescribed controlled substance>3 days was MAPS reviewed?: Prescribed <3 Days If Rx opioid, was Start Talking consent form obtained?: No Referrals: None,Stated [Primary Care Provider] - 1-2 days
[2020-01-07 13:51] VITALS: TEMP 98
== END 2020-01-07 13:51 | disposition home or self-care (01) ==
LOC: EC 11:16
DX: I10 Essential (primary) hypertension (principal); F11.23 Opioid dependence with withdrawal; E66.9 Obesity, unspecified; Z68.42 Body mass index [BMI] 45.0-49.9, adult; Z79.899 Other long term (current) drug therapy; Z88.0 Allergy status to penicillin; Z88.1 Allergy status to other antibiotic agents; Z88.6 Allergy status to analgesic agent; Z88.7 Allergy status to serum and vaccine; Z91.048 Other nonmedicinal substance allergy status
CPT/HCPCS: 36415; 80053; 81003; 83735; 85025; 99283

== ENCOUNTER 2020-08-27 21:14 | Emergency (ER) | payer OTHER ==
[2020-08-27 21:28] VITALS: BP 187/103; PULSE 94; RESP 18; TEMP 98.9
--- NOTE | 2020-08-27 22:12 | ED ---
Recheck HPI - General Chief Complaint: Recheck/Abnormal Lab/Rx Stated Complaint: High BP,Fast Heart Rate Time Seen by Provider: 08/27/20 21:40 Source: patient Mode of arrival: wheelchair Limitations: no limitations - History of Present Illness Initial Comments: Patient is a 40-year-old female, recently diagnosed with pheochromocytoma, hypertension, past heroin abuser, presenting to the emergency Department with complaints of elevated blood pressure. Patient states she has a history of anxiety and feels like that is playing a role in to this. Patient states she was just recently diagnosed with pheochromocytoma and is seen Dr. Levi for this she does have an appointment for a follow-up soon. Patient states she does take blood pressure medication, she did miss her lisinopril dose this evening but did take it just prior to arrival. She denies any chest pain at this time, she does admit to some mild shortness of breath but patient is teary-eyed during questioning. She denies any abdominal pain, no nausea or vomiting. She denies any fever or chills. She denies any other changes in her medication. She has no further complaints at this time. - Related Data Home Medications Medication Instructions Recorded Confirmed Bumetanide [BUMEX] 1 mg PO BID 11/06/18 01/07/20 lisinopriL 20 mg PO BID 12/23/19 01/07/20 Metoprolol Succinate [Toprol XL] 25 mg PO DAILY PRN MDD BELOW 140/98 08/27/20 08/27/20 Metoprolol Succinate [Toprol XL] 50 mg PO DAILY PRN MDD OVER 140/98 08/27/20 08/27/20 Previous Rx's Medication Instructions Recorded LORazepam [Ativan] 0.5 mg PO HS PRN 5 Days #5 tab 08/27/20 Allergies Allergy/AdvReac Type Severity Reaction Status Date / Time Pertussis Vaccines Allergy Unknown Unknown Verified 08/27/20 22:20 aspirin Allergy has had Verified 08/27/20 22:20 itching and hives in past macadamia nut oil Allergy Unknown Verified 08/27/20 22:20 nitrofurantoin Allergy Swelling Verified 08/27/20 22:20 [From Macrobid] nitrofurantoin Allergy Swelling Verified 08/27/20 22:20 macrocrystalline [From Macrobid] Penicillins Allergy Unknown Verified 08/27/20 22:20 Review of Systems ROS Statement: Those systems with pertinent positive or pertinent negative responses have been documented in the HPI. ROS Other: All systems not noted in ROS Statement are negative. Past Medical History Past Medical History: Hypertension Additional Past Medical History / Comment(s): obesity, pheochromocynthoma History of Any Multi-Drug Resistant Organisms: None Reported Past Surgical History: Section, Tubal Ligation Additional Past Surgical History / Comment(s): D&C, right ovary removed Past Psychological History: Anxiety, Depression Smoking Status: Current some day smoker Past Alcohol Use History: None Reported, Rare Past Drug Use History: Heroin, Marijuana General Exam - General Exam Comments Initial Comments: GENERAL: Patient is well-developed and well-nourished. Patient is nontoxic and in no acute distress, seems anxious, teary-eyed. HEAD: Atraumatic, normocephalic. EYES: Pupils equal round and reactive to light, extraocular movements intact, sclera anicteric, conjunctiva are normal. Eyelids were unremarkable. ENT: TMs normal, nares patent, oropharynx clear without exudates. Moist mucous membranes. NECK: Normal range of motion, supple without lymphadenopathy or JVD. LUNGS: Unlabored respirations. Breath sounds clear to auscultation bilaterally and equal. No wheezes rales or rhonchi. HEART: Regular rate and rhythm without murmurs, rubs or gallops. ABDOMEN: Soft, nontender, normoactive bowel sounds. No guarding, no rebound. No masses appreciated. : Deferred MUSCULOSKELETAL: Normal extremities with adequate strength and normal range of motion, no pitting or edema. No clubbing or cyanosis. NEUROLOGICAL: Patient is alert and oriented x 3. Motor and sensory are also intact. Cranial nerves II through XII grossly intact. Symmetrical smile. Normal speech, normal gait. PSYCH: Normal mood, normal affect, anxious. SKIN: Warm, Dry, normal turgor, no rashes or lesions noted. Limitations: no limitations Course Vital Signs 08/27/20 21:24 Temperature 98.9 F Pulse Rate 94 Respiratory 18 Rate Blood Pressure 187/103 O2 Sat by Pulse 100 Oximetry Medical Decision Making - Medical Decision Making Patient is a 40-year-old female with recent diagnosis of pheochromocytoma, presenting with elevated blood pressure and anxiety. She just took her lis inopril just prior to arrival. Her blood pressure on arrival is 187/103, rest of vitals were stable. EKG shows normal sinus rhythm, T-wave inversions, similar to previous EKG in December. She initially refused blood work. I did offer her Ativan and to allow her lisinapril to work and recheck her blood pressure. Patient refused Ativan about 20 minutes later and stated she feels better and wants to go home. I did recommend blood work secondary to her risk factors, heart history, however patient continues to decline. Patient states she'll follow-up with her doctor. I did discuss the risks of leaving, including heart damage, , patient still refuses to stay. Patient will sign out AMA. I will give patient a very short prescription for Ativan to use for acute anxiety. She states Xanax makes her paranoid. She is to follow-up with her regular doctor. Case discussed with Dr. Whelan. - EKG Data EKG Comments: Normal sinus rhythm, normal ECG. T-wave inversions, similar to previous EKG on 12/23/2019. Ventricular rate 97, [place] interval 148, QT 370. Disposition Clinical Impression: Hypertension, Anxiety Disposition: Left Against Medical Advice Condition: Good Instructions (If sedation given, give patient instructions): Hypertension (ED) Additional Instructions: Please return to the Emergency Department if symptoms worsen or any other concerns. Make sure to take her prescribed medications daily. Follow-up with your doctor as discussed. Prescriptions: LORazepam [Ativan] 0.5 mg PO HS PRN 5 Days #5 tab PRN Reason: Anxiety Is patient prescribed a controlled substance at d/c from ED?: Yes When asked, does pt state using other controlled substances?: No If prescribed controlled substance>3 days was MAPS reviewed?: Prescribed <3 Days Referrals: None,Stated [Primary Care Provider] - 1-2 days Pierce Levi MD [STAFF PHYSICIAN] - 1-2 days
[2020-08-27] MEDS ORDERED: LORazepam 2 MG/ML INJ IM STA (22:14)
== END 2020-08-27 22:30 | disposition left against medical advice (07) ==
LOC: EC 21:14
DX: I10 Essential (primary) hypertension (principal); F41.9 Anxiety disorder, unspecified; D35.00 Benign neoplasm of unspecified adrenal gland; F17.200 Nicotine dependence, unspecified, uncomplicated; Z79.899 Other long term (current) drug therapy; Z88.7 Allergy status to serum and vaccine; Z88.6 Allergy status to analgesic agent; Z88.1 Allergy status to other antibiotic agents; Z91.09 Other allergy status, other than to drugs and biological substances; Z88.0 Allergy status to penicillin; Z53.29 Procedure and treatment not carried out because of patient's decision for other reasons
CPT/HCPCS: 93005; 99284

== ENCOUNTER 2021-09-24 08:26 | Emergency (ER) | payer OTHER ==
[2021-09-24 08:47] VITALS: TEMP 97.8
[2021-09-24] MEDS ORDERED: BAMLANIVIMAB (EUA) 700 MG, ETESEVIMAB (EUA) 1,400 MG in SODIUM CHLORIDE 0.9% 100 ML IVPB ONE (09:45)
[2021-09-24] MEDS ORDERED: SODIUM CHLORIDE 0.9% 50 ML IVPB ONE (09:45)
[2021-09-24 09:53] VITALS: RESP 18
--- NOTE | 2021-09-24 09:55 | ED ---
General Adult HPI - General Chief complaint: Upper Respiratory Infection Stated complaint: Covid+ Time Seen by Provider: 09/24/21 08:30 Source: patient, RN notes reviewed, old records reviewed Mode of arrival: ambulatory Limitations: no limitations - History of Present Illness Initial comments: This is a 41-year-old female who presents to the emergency department complaining that she has been achy chest ache in her daughter test positive COVID and she decided to get tested at this point and she tested positive for colon. Patient denies any shortness of breath or chest pain she does state that she has some palpitations in her heart once a while and she's had a history of this. Patient denies any fever or chills. Patient denies any change in taste. Patient states she does have a little bit of a sore throat. Patient denies any abdominal pain patient denies nausea vomiting diarrhea. - Related Data Home Medications Medication Instructions Recorded Confirmed Bumetanide [BUMEX] 1 mg PO BID 11/06/18 08/27/20 lisinopriL 20 mg PO BID 12/23/19 08/27/20 Metoprolol Succinate [Toprol XL] 25 mg PO DAILY PRN MDD BELOW 140/98 08/27/20 08/27/20 Metoprolol Succinate [Toprol XL] 50 mg PO DAILY PRN MDD OVER 140/98 08/27/20 08/27/20 Previous Rx's Medication Instructions Recorded LORazepam [Ativan] 0.5 mg PO HS PRN 5 Days #5 tab 08/27/20 Allergies Allergy/AdvReac Type Severity Reaction Status Date / Time Pertussis Vaccines Allergy Unknown Unknown Verified 09/24/21 08:47 aspirin Allergy has had Verified 09/24/21 08:47 itching and hives in past macadamia nut oil Allergy Unknown Verified 08/27/20 22:20 nitrofurantoin Allergy Swelling Verified 09/24/21 08:47 [From Macrobid] nitrofurantoin Allergy Swelling Verified 09/24/21 08:47 macrocrystalline [From Macrobid] Penicillins Allergy Unknown Verified 09/24/21 08:47 Review of Systems ROS Statement: Those systems with pertinent positive or pertinent negative responses have been documented in the HPI. ROS Other: All systems not noted in ROS Statement are negative. Past Medical History Past Medical History: Hypertension Additional Past Medical History / Comment(s): obesity History of Any Multi-Drug Resistant Organisms: None Reported Past Surgical History: Section, Tubal Ligation Additional Past Surgical History / Comment(s): D&C, right ovary removed Past Psychological History: Anxiety, Depression Smoking Status: Current some day smoker Past Alcohol Use History: None Reported, Rare Past Drug Use History: Heroin, Marijuana General Exam - General Exam Comments Initial Comments: GENERAL: Patient is well-developed and well-nourished. Patient is nontoxic and well- hydrated and is in mild distress. ENT: Neck is soft and supple. No significant lymphadenopathy is noted. Oropharynx is clear. Moist mucous membranes. Neck has full range of motion without eliciting any pain. EYES: The sclera were anicteric and conjunctiva were pink and moist. Extraocular movements were intact and pupils were equal round and reactive to light. Eyelids were unremarkable. PULMONARY: Unlabored respirations. Good breath sounds bilaterally. No audible rales rhonchi or wheezing was noted. CARDIOVASCULAR: There is a regular rate and rhythm without any murmurs gallops or rubs. ABDOMEN: Soft and nontender with normal bowel sounds. SKIN: Skin is clear with no lesions or rashes and otherwise unremarkable. NEUROLOGIC: Patient is alert and oriented x3. Cranial nerves II through XII are grossly intact. Motor and sensory are also intact. Normal speech, volume and content. Symmetrical smile. MUSCULOSKELETAL: Normal extremities with adequate strength and full range of motion. LYMPHATICS: No significant lymphadenopathy is noted PSYCHIATRIC: Normal psychiatric evaluation. Limitations: no limitations Course Vital Signs 09/24/21 09/24/21 08:44 09:53 Temperature 97.8 F Pulse Rate 82 77 Respiratory 20 18 Rate Blood Pressure 166/102 153/97 O2 Sat by Pulse 99 95 Oximetry Medical Decision Making - Medical Decision Making EKG shows normal sinus rhythm at 73 bpm AR interval 160 QRS is under QT intervals 420 QTC is 471. Patient's EKG shows some inverted T waves in V1 and V2 and V3. These changes were seen on previous EKGs Patient's blood pressure was mildly elevated and she stated she did not take her lisinopril home so we gave her 1.25 of Vasotec IV. Patient received monoclonal antibodies Disposition Clinical Impression: COVID Disposition: HOME SELF-CARE Condition: Good Instructions (If sedation given, give patient instructions): Coronavirus Disease 2019 (COVID-19) Is patient prescribed a controlled substance at d/c from ED?: No Referrals: Nonstaff,Physician [Primary Care Provider] - 1-2 days Time of Disposition: 10:00
[2021-09-24] MEDS ORDERED: ENALAPRILAT 1.25 MG/ML 1 ML VIAL IVP STA (10:00)
[2021-09-24 10:45] VITALS: BP 129/99; PULSE 71
== END 2021-09-24 11:10 | disposition home or self-care (01) ==
LOC: EC 08:26
DX: U07.1 COVID-19 (principal); I10 Essential (primary) hypertension; F41.9 Anxiety disorder, unspecified; F32.A Depression, unspecified; F17.200 Nicotine dependence, unspecified, uncomplicated; F12.90 Cannabis use, unspecified, uncomplicated; Z88.0 Allergy status to penicillin; Z98.51 Tubal ligation status
CPT/HCPCS: 99284; M0245; 93005

== ENCOUNTER 2022-02-11 15:51 | Emergency (ER) | payer OTHER ==
[2022-02-11 16:02] VITALS: PULSE 80
--- NOTE | 2022-02-11 17:22 | ED ---
General Adult HPI - General Chief complaint: Recheck/Abnormal Lab/Rx Stated complaint: Abnormal EKG Time Seen by Provider: 02/11/22 16:26 Source: patient Mode of arrival: ambulatory Limitations: no limitations - History of Present Illness Initial comments: 41-year-old female with past nuchal history of hypertension, narcotic abuse on Suboxone presents to the emergency department with several complaints. Reports that over the past several days she has had lightheadedness, balance issues, palpitations and swelling. The swelling has been a chronic issue for her. She is on Bumex and takes it twice daily. States that her swelling has been relatively under control. It is worse in the morning when she wakes up and states over the course of the day it will dissipate. She follows with Dr. Coleman from cardiology. Did have an echo last year. Denies history of heart failure. Patient had a catheterization in 2018 which was clear. She denies any chest pain. She went into urgent care today who completed an EKG, thought it was abnormal and directed her to come in to the emergency room for further evaluation. - Related Data Home Medications Medication Instructions Recorded Confirmed Bumetanide [BUMEX] 1 mg PO BID 11/06/18 02/11/22 Albuterol Inhaler [Ventolin Hfa 2 puff INHALATION RT-QID PRN 02/11/22 02/11/22 Inhaler] Buprenorphine HCl/Naloxone HCl 1 film SL TID 02/11/22 02/11/22 [Suboxone 8 mg-2 mg Sl Film] Cetirizine HCl [Zyrtec] 10 mg PO DAILY PRN 02/11/22 02/11/22 Ibuprofen [Motrin] 800 mg PO BID PRN 02/11/22 02/11/22 Lisinopril [Prinivil] 10 mg PO DAILY 02/11/22 02/11/22 Loratadine [Claritin] 10 mg PO DAILY PRN 02/11/22 02/11/22 Metoprolol Succinate [Toprol XL] 25 mg PO BID 02/11/22 02/11/22 Allergies Allergy/AdvReac Type Severity Reaction Status Date / Time Pertussis Vaccines Allergy Unknown Unknown Verified 02/11/22 18:37 aspirin Allergy has had Verified 02/11/22 18:37 itching and hives in past macadamia nut oil Allergy Unknown Verified 02/11/22 18:37 nitrofurantoin Allergy Swelling Verified 02/11/22 18:37 [From Macrobid] nitrofurantoin Allergy Swelling Verified 02/11/22 18:37 macrocrystalline [From Macrobid] Penicillins Allergy Unknown Verified 02/11/22 18:37 Childhood Review of Systems ROS Statement: Those systems with pertinent positive or pertinent negative responses have been documented in the HPI. ROS Other: All systems not noted in ROS Statement are negative. Past Medical History Past Medical History: Hypertension Additional Past Medical History / Comment(s): obesity History of Any Multi-Drug Resistant Organisms: None Reported Past Surgical History: Section, Tubal Ligation Additional Past Surgical History / Comment(s): D&C, right ovary removed Past Psychological History: Anxiety, Depression Smoking Status: Current some day smoker Past Alcohol Use History: None Reported, Rare Past Drug Use History: Heroin, Marijuana General Exam Limitations: no limitations General appearance: alert, in no apparent distress Head exam: Present: atraumatic, normocephalic, normal inspection Eye exam: Present: normal appearance, PERRL, EOMI. Absent: scleral icterus, conjunctival injection, periorbital swelling ENT exam: Present: normal exam, mucous membranes moist Neck exam: Present: normal inspection. Absent: tenderness, meningismus, lymphadenopathy Respiratory exam: Present: normal lung sounds bilaterally. Absent: respiratory distress, wheezes, rales, rhonchi, stridor Cardiovascular Exam: Present: regular rate, normal rhythm, normal heart sounds. Absent: systolic murmur, diastolic murmur, rubs, gallop, clicks GI/Abdominal exam: Present: soft, normal bowel sounds. Absent: distended, tenderness, guarding, rebound, rigid Extremities exam: Present: normal inspection, full ROM, normal capillary refill, pedal edema (1+). Absent: tenderness, joint swelling, calf tenderness Back exam: Present: normal inspection Neurological exam: Present: alert, oriented X3, CN II-XII intact Psychiatric exam: Present: normal affect, normal mood Skin exam: Present: warm, dry, intact, normal color. Absent: rash Course Vital Signs 02/11/22 02/11/22 15:57 20:27 Temperature 97.8 F 98 F Pulse Rate 80 Respiratory 18 79 H Rate Blood Pressure 189/86 129/79 O2 Sat by Pulse 100 97 Oximetry EKG Findings - EKG Comments: EKG Findings:: EKG demonstrates sinus rhythm with a rate of 70. AR interval 165. QRS 102. QTC of 437. No acute ST segment elevations. Inverted T-wave in lead V1 through V3 which is chronic for the patient Medical Decision Making - Medical Decision Making On arrival patient was placed into room 7. There are history and physical exam was performed. IV access is established and laboratory studies were conducted. Ultrasound of the lower extremities is performed due to reported edema which is negative for DVT. D-dimer was elevated at 0.[address] of the chest is performed with no pulmonary embolus identified. Remainder of laboratory studies are within normal limits. I did discuss the diagnosis, differential and treatment options. Patient has been told before that her swelling may be due to her Suboxone use. Patient currently attempting to wean herself off under the direction of her pain management doctor. Patient will be discharged home and will follow up with Dr. Levi for further evaluation of her symptoms. Did recommend an echo as well as possible carotid Doppler. She is to return to the emergency room for any new or worsening symptoms. Patient agreed to the treatment plan and she was discharged home in stable condition - Lab Data Result diagrams: 02/11/22 17:29 02/11/22 17:29 Lab Results 02/11/22 02/11/22 02/11/22 Range/Units 17:29 17:29 17:29 WBC 8.1 (3.8-10.6) k/uL RBC 4.10 (3.80-5.40) m/uL Hgb 11.4 (11.4-16.0) gm/dL Hct 35.3 (34.0-46.0) % MCV 86.0 (80.0-100.0) fL MCH 27.9 (25.0-35.0) pg MCHC 32.4 (31.0-37.0) g/dL RDW 14.9 (11.5-15.5) % Plt Count 314 (150-450) k/uL MPV 8.5 Neutrophils % 71 % Lymphocytes % 22 % Monocytes % 5 % Eosinophils % 1 % Basophils % 0 % Neutrophils # 5.7 (1.3-7.7) k/uL Lymphocytes # 1.8 (1.0-4.8) k/uL Monocytes # 0.4 (0-1.0) k/uL Eosinophils # 0.1 (0-0.7) k/uL Basophils # 0.0 (0-0.2) k/uL PT 10.6 (9.0-12.0) sec INR 1.0 (<1.2) APTT 24.5 (22.0-30.0) sec D-Dimer 0.66 H (<0.60) mg/L FEU Sodium 137 (137-145) mmol/L Potassium 3.9 (3.5-5.1) mmol/L Chloride 102 (98-107) mmol/L Carbon Dioxide 27 (22-30) mmol/L Anion Gap 8 mmol/L BUN 14 (7-17) mg/dL Creatinine 0.75 (0.52-1.04) mg/dL Est GFR (CKD-EPI)AfAm >90 (>60 ml/min/1.73 sqM) Est GFR (CKD-EPI)NonAf >90 (>60 ml/min/1.73 sqM) Glucose 104 H (74-99) mg/dL Calcium 8.7 (8.4-10.2) mg/dL Magnesium 2.1 (1.6-2.3) mg/dL Total Bilirubin 0.2 (0.2-1.3) mg/dL AST 19 (14-36) U/L ALT 13 (4-34) U/L Alkaline Phosphatase 87 (38-126) U/L Troponin I (0.000-0.034) ng/mL NT-Pro-B Natriuret Pep pg/mL Total Protein 7.4 (6.3-8.2) g/dL Albumin 4.2 (3.5-5.0) g/dL TSH 1.210 (0.465-4.680) mIU/L 02/11/22 02/11/22 Range/Units 17:29 17:29 WBC (3.8-10.6) k/uL RBC (3.80-5.40) m/uL Hgb (11.4-16.0) gm/dL Hct (34.0-46.0) % MCV (80.0-100.0) fL MCH (25.0-35.0) pg MCHC (31.0-37.0) g/dL RDW (11.5-15.5) % Plt Count (150-450) k/uL MPV Neutrophils % % Lymphocytes % % Monocytes % % Eosinophils % % Basophils % % Neutrophils # (1.3-7.7) k/uL Lymphocytes # (1.0-4.8) k/uL Monocytes # (0-1.0) k/uL Eosinophils # (0-0.7) k/uL Basophils # (0-0.2) k/uL PT (9.0-12.0) sec INR (<1.2) APTT (22.0-30.0) sec D-Dimer (<0.60) mg/L FEU Sodium (137-145) mmol/L Potassium (3.5-5.1) mmol/L Chloride (98-107) mmol/L Carbon Dioxide (22-30) mmol/L Anion Gap mmol/L BUN (7-17) mg/dL Creatinine (0.52-1.04) mg/dL Est GFR (CKD-EPI)AfAm (>60 ml/min/1.73 sqM) Est GFR (CKD-EPI)NonAf (>60 ml/min/1.73 sqM) Glucose (74-99) mg/dL Calcium (8.4-10.2) mg/dL Magnesium (1.6-2.3) mg/dL Total Bilirubin (0.2-1.3) mg/dL AST (14-36) U/L ALT (4-34) U/L Alkaline Phosphatase (38-126) U/L Troponin I <0.012 (0.000-0.034) ng/mL NT-Pro-B Natriuret Pep 35 pg/mL Total Protein (6.3-8.2) g/dL Albumin (3.5-5.0) g/dL TSH (0.465-4.680) mIU/L Disposition Clinical Impression: Palpitations, Peripheral edema Disposition: HOME SELF-CARE Condition: Stable Instructions (If sedation given, give patient instructions): Near Syncope (ED) Additional Instructions: Please follow-up with Dr. Levi. Recommend that you have an echo, holter monitoring and possibly a tilt table test. Return for any new or worsening symptoms. Is patient prescribed a controlled substance at d/c from ED?: No Referrals: Nonstaff,Physician [Primary Care Provider] - 1-2 days Time of Disposition: 20:01
[2022-02-11 17:36] LABS: Basophils % (A) 0 %; Eosinophils # (A) 0.1 k/uL (0-0.7); Eosinophils % (A) 1 %; HCT 35.3 % (34.0-46.0); HGB 11.4 gm/dL (11.4-16.0); Lymphocytes # (A) 1.8 k/uL (1.0-4.8); Lymphocytes % (A) 22 %; MCH 27.9 pg (25.0-35.0); MCHC 32.4 g/dL (31.0-37.0); Mean Platelet Volume 8.5; Monocytes # (A) 0.4 k/uL (0-1.0); Monocytes % (A) 5 %; Neutrophils # (A) 5.7 k/uL (1.3-7.7); Neutrophils % (A) 71 %; Platelet Count 314 k/uL (150-450); RDW 14.9 % (11.5-15.5); WBC 8.1 k/uL (3.8-10.6)
--- NOTE | 2022-02-11 17:47 | XR ---
EXAMINATION TYPE: XR chest 2V DATE OF EXAM: 02/11/2022 COMPARISON: 07/15/2018 HISTORY: Chest pain TECHNIQUE: 2 views FINDINGS: Heart is normal. Lungs are clear of infiltrate. No heart failure. There are no hilar masses . Costophrenic angles are clear. IMPRESSION: No active cardiopulmonary disease. Normal heart. No change.
[2022-02-11 17:48] LABS: ALT 13 U/L (4-34); AST 19 U/L (14-36); African American GFR (CKD) >90 (>60 ml/min/1.73 sqM); Albumin 4.2 g/dL (3.5-5.0); Alkaline Phosphatase 87 U/L (38-126); Anion Gap 8 mmol/L; Blood Urea Nitrogen 14 mg/dL (7-17); Calcium 8.7 mg/dL (8.4-10.2); Carbon Dioxide 27 mmol/L (22-30); Chloride 102 mmol/L (98-107); Glucose 104 mg/dL (74-99); Magnesium 2.1 mg/dL (1.6-2.3); Non-African American GFR(CKD) >90 (>60 ml/min/1.73 sqM); Potassium 3.9 mmol/L (3.5-5.1); Sodium 137 mmol/L (137-145); Total Bilirubin 0.2 mg/dL (0.2-1.3); Total Protein 7.4 g/dL (6.3-8.2)
[2022-02-11 17:50] LABS: Partial Thromboplastin Time 24.5 sec (22.0-30.0); Prothrombin Time 10.6 sec (9.0-12.0)
--- NOTE | 2022-02-11 18:31 | US ---
EXAMINATION TYPE: US venous doppler duplex LE DATE OF EXAM: 02/11/2022 6:16 PM COMPARISON: NONE CLINICAL HISTORY: leg swelling. SIDE PERFORMED: TECHNIQUE: The lower extremity deep venous system is examined utilizing real time linear array sonog juan josé with graded compression, doppler sonography and color-flow sonography. VESSELS IMAGED: Common Femoral Vein Deep Femoral Vein Greater Saphenous Vein * Femoral Vein Popliteal Vein Small Saphenous Vein * Proximal Calf Veins (* superficial vessels) Right Leg: Left Leg: IMPRESSION: No evidence of deep vein thrombosis in both legs.
--- NOTE | 2022-02-11 19:28 | CT ---
EXAMINATION TYPE: CT chest angio for PE DATE OF EXAM: 02/11/2022 COMPARISON: 11/21/2016 HISTORY: elevated D-dimer and lower extremity swelling CT DLP: 950.4 mGycm Automated exposure control for dose reduction was used. CONTRAST: Performed with IV Contrast, patient injected with 100 mL of Isovue 370. There are Three-D postprocessed images. The lungs are clear of consolidation. No pleural effusion. No pericardial effusion. Heart size is nor mal. There are no hilar masses. There is no mediastinal adenopathy. Thoracic aorta is intact. No aneurysm. No pleural effusion or pneumothorax. There is normal contrast opacification of the pulmonary arteries. No filling defect. The thoracic spi ne is intact. Sternum is intact. IMPRESSION: No evidence of pulmonary embolism. There is clearing of the atelectasis and pleural fluid at the lung bases compared to old exam. No acute lung disease.
[2022-02-11 20:28] VITALS: BP 129/79; RESP 79; TEMP 98
== END 2022-02-11 20:27 | disposition home or self-care (01) ==
LOC: EC 15:51
DX: R00.2 Palpitations (principal); R60.0 Localized edema; I10 Essential (primary) hypertension; F17.200 Nicotine dependence, unspecified, uncomplicated; Z88.7 Allergy status to serum and vaccine; Z88.6 Allergy status to analgesic agent; Z88.3 Allergy status to other anti-infective agents; Z88.0 Allergy status to penicillin; Z88.8 Allergy status to other drugs, medicaments and biological substances
CPT/HCPCS: 36415; 93005; 85379; 83880; 80053; 84443; 83735; 84484; 85025; 85610; 85730; 71046; 93970; 71275; 99285; Q9967

== ENCOUNTER → 2023-01-03 | Outpatient (CLI) | payer OTHER ==
[2023-01-03 15:09] VITALS: BP 141/87; PULSE 74; TEMP 97.9; BMI 52.2
--- NOTE | 2023-01-03 15:29 | P.HPBAR ---
Bariatric H&P - History & Physicial H&P Date: 01/03/23 History & Physicial: Visit/CC: new patient Patient initial contact: Initial weight: Initial weight in pounds: Height: 5 ft 7 in Initial BMI: Last weight: Current weight: 151.454 kg Current weight in pounds: 333.90 Current BMI: 52.2 [place] body weight (based on NIH guidelines): 61.235 kg Excess body weight loss: The patient is a 42 year-old F who presents for Bariatric Assessment. SHe has tried multiple diets including plant based and GAME WARDEN for over 2 years. She is tracking her diet. SHe has been sober for 2 years. Obesity runs in the family. Highest weight 397 pounds. SHe has lost weight on her own. She was on adipex and lost 105 pounds on her own and was adipex. She was and . She was 380 to 279 pounds on her own 2018 with pills for weight loss. 321 to 350 pounds. SHe is losing with fasting for 16 hrs for 2 pounds per day. She eats overnight oats. She stops wating before 8 pm. She denies moderate heartburn but is occassional. She drinks grapefruit juice. She has choking from GERD. She has arthymia. She sees Dr. Levi. She still has her gallbladder. Grandparents have gallbladder cancer and gallbaldder removed. Parents have heart problems. No colon cancer. She is on movantik. She is saboxone. EGD and colon advised with blood in stools. 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 of drug abuse, last overdose twice December 2019, sober for 3 years now Surgical - Exam Vital Signs Temp Pulse BP 97.9 F 74 141/87 01/03/23 14:49 01/03/23 14:49 01/03/23 14:49 Bariatric Checklist Checklist: Plan: Checklist: EGD: 1. Hiatal hernia: 2. H. Pylori: HgbA1c: Vitamin D: Smoking: Current every day smoker Primary care physician referral: Dr. Lui Psychiatry clearance: Cardiology clearance: Sleep study: Diet journal: VTE risk score: VTE risk level: Rehab needs at discharge:
[2023-01-03 17:00] LABS: Partial Thromboplastin Time 23.1 sec (22.0-30.0); Prothrombin Time 10.3 sec (9.0-12.0)
[2023-01-04 01:15] LABS: HCT 36.2 % (37.2-46.3); MCH 27.3 pg (27.0-32.0); MCHC 30.4 g/dL (32.0-37.0); MCV 89.8 fL (80.0-97.0); Mean Platelet Volume 12.6 fL (9.5-12.2); NRBC Per 100 WBC 0 /100 WBCS (0.0-0.0); Platelet Count 267 X 10*3/uL (140-440); RBC 4.03 X 10*6/uL (4.10-5.20); RDW 15.3 % (11.5-14.5); WBC 8.46 X 10*3/uL (4.50-10.00)
[2023-01-04 03:16] LABS: % Iron Saturation 8.53 (12.00-45.00); ALT 13 U/L (8-44); AST 14 U/L (13-35); African American GFR (CKD) 131.2 (60.0-200.0); Albumin 4.1 g/dL (3.8-4.9); Albumin/Globulin Ratio 1.46 (1.60-3.17); Alkaline Phosphatase 84 U/L (41-126); BUN/Creat Ratio 29.33 Ratio (12.00-20.00); Blood Urea Nitrogen 17.6 mg/dL (9.0-27.0); Carbon Dioxide 25.2 mmol/L (20.0-27.5); Chloride 102 mmol/L (96-109); Ferritin 33.4 ng/mL (10.0-291.0); Globulin 2.8 g/dL (1.6-3.3); Glucose 87 mg/dL (70-110); Iron 35 ug/dL (50-170); Non-African American GFR(CKD) 113.2 (60.0-200.0); Phosphorus 4.1 mg/dL (2.4-5.1); Potassium 4.3 mmol/L (3.5-5.5); Sodium 133 mmol/L (135-145); Total Bilirubin <0.15 mg/dL (0.30-1.20); Total Iron Binding Capacity 412 ug/dL (228-460); Total Protein 6.9 g/dL (6.2-8.2)
[2023-01-04 03:20] LABS: Chol/HDL Ratio 6.84 Ratio; LDL Cholesterol,Calculated 132.4 mg/dL (0.0-131.0); Prealbumin 18.3 mg/dL (18.0-42.0)
[2023-01-05 11:50] LABS: Vitamin A 35 ug/dL (38-106)
== END ==
LOC: BARWHC3 13:38
PROVIDERS: ATTEND Surgery Plastic and Reconstructive Surgery
DX: E66.01 Morbid (severe) obesity due to excess calories (principal); E89.1 Postprocedural hypoinsulinemia; D50.8 Other iron deficiency anemias; D50.9 Iron deficiency anemia, unspecified; E44.0 Moderate protein-calorie malnutrition; E44.1 Mild protein-calorie malnutrition; E45 Retarded development following protein-calorie malnutrition; E46 Unspecified protein-calorie malnutrition; E55.9 Vitamin D deficiency, unspecified; K74.1 Hepatic sclerosis; N19 Unspecified kidney failure; T56.894A Toxic effect of other metals, undetermined, initial encounter; I10 Essential (primary) hypertension; Z68.43 Body mass index [BMI] 50.0-59.9, adult; Z71.51 Drug abuse counseling and surveillance of drug abuser; Z88.6 Allergy status to analgesic agent; Z88.0 Allergy status to penicillin; Z88.7 Allergy status to serum and vaccine; Z88.8 Allergy status to other drugs, medicaments and biological substances; F17.200 Nicotine dependence, unspecified, uncomplicated
CPT/HCPCS: 84255; 84134; 84425; 80061; 80053; 82607; 82728; 82525; 82746; 83540; 83550; 83735; 84100; 84443; 84590; 84630; 85027; 85610; 85730; 82306; 83970; 83036; 80307; 93005; G0482; G0463; 99212

== ENCOUNTER 2023-01-29 07:02 | Day surgery (SDC) | payer OTHER ==
[2023-01-25 11:28] VITALS: BMI 51.7
[2023-01-29] MEDS ORDERED: LACTATED RINGERS 1,000 ML IV SCH (07:14)
[2023-01-29] MEDS ORDERED: LIDOCAINE 1% (10MG/ML) FOR IV START INTRADERMA PRN (07:14)
--- NOTE | 2023-01-29 07:31 | P.GSHP ---
History of Present Illness H&P Date: 01/29/23 CHIEF COMPLAINT: GERD and GI bleed HISTORY OF PRESENT ILLNESS: The patient is a 42-year-old female who presents with gastroesophageal reflux disease and blood in stools for 3 months. Upper and lower endoscopy were offered for further evaluation and management. PAST MEDICAL HISTORY: Please see list. PAST SURGICAL HISTORY: Please see list. MEDICATIONS: Please see list. ALLERGIES: Please see list. SOCIAL HISTORY: No illicit drug use FAMILY HISTORY: No reports of Crohn disease or ulcerative colitis. REVIEW OF ORGAN SYSTEMS: CONSTITUTIONAL: No reports of fevers or chills. GI: Denies any blood in stools or constipation. PHYSICAL EXAM: VITAL SIGNS: Stable GENERAL: Well-developed pleasant in no acute distress. HEENT: No scleral icterus. Extraocular movements grossly intact. Moist buccal mucosa. NECK: Supple without lymphadenopathy. CHEST: Unlabored respirations. Equal bilateral excursions. CARDIOVASCULAR: Regular rate and rhythm. Distal 2+ pulses. ABDOMEN: Soft, nondistended. MUSCULOSKELETAL: No clubbing, cyanosis, or edema. ASSESSMENT: 1. Gastroesophageal reflux disease 2. Blood in stools PLAN: 1. Recommend proceeding with an upper and lower endoscopy Past Medical History Past Medical History: Hypertension Additional Past Medical History / Comment(s): obesity, pheochromocytoma Opiod addiction clean since 2021. 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 Patient states abnormal t waves. History of Any Multi-Drug Resistant Organisms: None Reported Past Surgical History: Section, Heart Catheterization, Tubal Ligation Additional Past Surgical History / Comment(s): D&C, right ovary removed Past Anesthesia/Blood Transfusion Reactions: No Reported Reaction Smoking Status: Vaper - Past Family History Father Family Medical History: Cancer Additional Family Medical History / Comment(s): lung Mother Family Medical History: Cancer Additional Family Medical History / Comment(s): uterine Medications and Allergies Home Medications Medication Instructions Recorded Confirmed Type Bumetanide [BUMEX] 1 mg PO BID PRN 11/06/18 01/25/23 History Albuterol Inhaler [Ventolin Hfa 2 puff INHALATION RT-QID PRN 02/11/22 01/25/23 History Inhaler] Buprenorphine HCl/Naloxone HCl 1 film SL TID 02/11/22 01/25/23 History [Suboxone 8 mg-2 mg Sl Film] Ibuprofen [Motrin] 800 mg PO BID PRN 02/11/22 01/25/23 History Loratadine [Claritin] 10 mg PO DAILY PRN 02/11/22 01/25/23 History Metoprolol Succinate [Toprol XL] 25 mg PO DAILY 02/11/22 01/25/23 History lisinopriL [Prinivil] 5 mg PO DAILY PRN 02/11/22 01/25/23 History Docusate [Colace] 100 mg PO DAILY 01/03/23 01/25/23 History Naloxegol Oxalate [Movantik] 25 mg PO DAILY 01/03/23 01/25/23 History Ergocalciferol [Vitamin D2 (1250 50,000 unit PO WEEKLY 01/22/23 01/25/23 History Mcg = 38337 Iu)] Biotin [Biotin Disolve] 5,000 mcg PO DAILY 01/25/23 01/25/23 History Multivitamin/Iron/Folic Acid 1 each PO DAILY 01/25/23 01/25/23 History [Centrum Women Tablet] Vitamin A 2,400 mcg PO DAILY 01/25/23 01/25/23 History Allergies Allergy/AdvReac Type Severity Reaction Status Date / Time shellfish derived Allergy Intermediate Itching Verified 01/29/23 07:28 Pertussis Vaccines Allergy Unknown Unknown Verified 01/29/23 07:28 aspirin Allergy has had Verified 01/29/23 07:28 itching and hives in past macadamia nut oil Allergy Unknown Verified 01/29/23 07:28 nitrofurantoin Allergy Swelling Verified 01/29/23 07:28 [From Macrobid] nitrofurantoin Allergy Swelling Verified 01/29/23 07:28 macrocrystalline [From Macrobid] Penicillins Allergy Unknown Verified 01/29/23 07:28 Childhood
[2023-01-29 07:38] VITALS: TEMP 97.3
[2023-01-29] MEDS ORDERED: PROPOFOL 10 MG/ML 20 ML VIAL IV ONE (07:49)
[2023-01-29] MEDS ORDERED: LIDOCAINE 2% INJ 20 MG/ML (2 ML VIAL) ONE (07:49)
--- NOTE | 2023-01-29 08:03 | P.PCN ---
Date of Procedure: 01/29/23 Description of Procedure: PREOPERATIVE DIAGNOSIS: Gastroesophageal reflux disease. Morbid obesity. Gastrointestinal bleeding POSTOPERATIVE DIAGNOSIS: Gastroesophageal reflux disease. Morbid obesity. Gastritis. Diaphragmatic hiatal hernia OPERATION: Esophagogastroduodenoscopy with biopsies along antrum and duodenum SURGEON: Dori Lopes MD ANESTHESIA: MAC. INDICATIONS: The patient is a 47-year-old female who presents with reflux disease. Benefits and risks of the procedure were described. Informed consent was obtained. DESCRIPTION: The patient was brought into the endoscopy suite and laid in the left lateral decubitus position. An Olympus gastroscope was passed along the posterior orop harynx down to the distal esophagus where the squamocolumnar junction was encountered at 37 cm from the incisors. The stomach was entered and no bile reflux was found. Additional findings are listed below. Biopsies with cold forceps were obtained of the antrum. The first through third portion of the duodenum was examined. Retroflexion of the scope confirmed Hill grade 2 lower esophageal valve. The squamocolumnar junction demonstrated LA grade B erosive esophagitis. The stomach was desufflated. The patient tolerated the procedure well. FINDINGS: Squamocolumnar junction 37 cm from the incisors. Diaphragmatic hiatus at 40 cm. Hiatal hernia, 3 cm Hill grade 2 lower esophageal valve. LA grade B erosive esophagitis. Biopsies obtained of duodenum for duodenitis Chronic gastritis without active bleeding, biopsies obtained RECOMMENDATIONS: Upper endoscopy as needed.
--- NOTE | 2023-01-29 08:15 | P.PCN ---
Date of Procedure: 01/29/23 Description of Procedure: PREOPERATIVE DIAGNOSIS: Gastrointestinal bleeding Rectal bleeding POSTOPERATIVE DIAGNOSIS: Diverticulosis, scattered, sigmoid colon Internal and external hemorrhoids, grade 3 OPERATION: Colonoscopy to the cecum, ileocecal valve and appendiceal orifice. SURGEON: Dori Lopes MD. ANESTHESIA: MAC. INDICATIONS: The patient is a 42-year-old female who presents for gastrointestinal bleedinge described and informed consent was obtained. DESCRIPTION OF PROCEDURE: The patient had undergone Sutab prep. The patient had been brought into the operating room and laid in the left lateral decubitus position. After adequate intravenous sedation, the rectum was examined with 2% lidocaine jelly. External hemorrhoids were encountered. The rectal tone was within normal limits. No lesions were palpated in the rectal vault. An Olympus colonoscope was advanced until the cecum, ileocecal valve and appendiceal orifice were clearly viewed. The prep was excellent. Scattered diverticulosis along the sigmoid colon was encountered. No colonic polyps were found. No evidence of focal colitis was found. Retroflexion of the scope demonstrated grade 3 internal hemorrhoids without active bleeding or inflammation. The colon was desufflated. The patient had tolerated the procedure well. Withdrawal time was over 6 minutes. FINDINGS: Aronchick preparation quality scale 1+(1-5) Internal hemorrhoids, grade 3 External prolapsed hemorrhoids, grade 3 No arteriovenous malformations. No adenomatous polyps. No focal colitis. RECOMMENDATIONS: Lower endoscopy as needed Plan - Discharge Summary Discharge Rx Participant: No New Discharge Prescriptions: Continue Bumetanide [BUMEX] 1 mg PO BID PRN PRN Reason: swelling Metoprolol Succinate [Toprol XL] 25 mg PO DAILY Loratadine [Claritin] 10 mg PO DAILY PRN PRN Reason: Allergy Symptoms lisinopriL [Prinivil] 5 mg PO DAILY PRN PRN Reason: high blood pressure Ergocalciferol [Vitamin D2 (1250 Mcg = 70272 Iu)] 50,000 unit PO WEEKLY Biotin [Biotin Disolve] 5,000 mcg PO DAILY Multivitamin/Iron/Folic Acid [Centrum Women Tablet] 1 each PO DAILY Albuterol Inhaler [Ventolin Hfa Inhaler] 2 puff INHALATION RT-QID PRN PRN Reason: Shortness Of Breath Buprenorphine HCl/Naloxone HCl [Suboxone 8 mg-2 mg Sl Film] 1 film SL TID Ibuprofen [Motrin] 800 mg PO BID PRN PRN Reason: Pain Naloxegol Oxalate [Movantik] 25 mg PO DAILY Docusate [Colace] 100 mg PO DAILY Vitamin A 2,400 mcg PO DAILY Discharge Medication List Bumetanide [BUMEX] 1 mg PO BID PRN 11/06/18 [History] Albuterol Inhaler [Ventolin Hfa Inhaler] 2 puff INHALATION RT-QID PRN 02/11/22 [History] Buprenorphine HCl/Naloxone HCl [Suboxone 8 mg-2 mg Sl Film] 1 film SL TID 02/11/22 [History] Ibuprofen [Motrin] 800 mg PO BID PRN 02/11/22 [History] Loratadine [Claritin] 10 mg PO DAILY PRN 02/11/22 [History] Metoprolol Succinate [Toprol XL] 25 mg PO DAILY 02/11/22 [History] lisinopriL [Prinivil] 5 mg PO DAILY PRN 02/11/22 [History] Docusate [Colace] 100 mg PO DAILY 01/03/23 [History] Naloxegol Oxalate [Movantik] 25 mg PO DAILY 01/03/23 [History] Ergocalciferol [Vitamin D2 (1250 Mcg = 89293 Iu)] 50,000 unit PO WEEKLY 01/22/23 [History] Biotin [Biotin Disolve] 5,000 mcg PO DAILY 01/25/23 [History] Multivitamin/Iron/Folic Acid [Centrum Women Tablet] 1 each PO DAILY 01/25/23 [History] Vitamin A 2,400 mcg PO DAILY 01/25/23 [History] [place] [facility](s[facility] [facility] [place] [facility] Patient Instructions/Handouts: GERD (Gastroesophageal Reflux Disease) (DC), Diverticulosis Diet (GEN), Diverticulosis (ED) Discharge Disposition: HOME SELF-CARE
[2023-01-29 08:31] VITALS: BP 111/72; PULSE 73; RESP 17
== END 2023-01-29 09:04 | disposition home or self-care (01) ==
LOC: ORWHC2ENDO 07:02
PROVIDERS: ATTEND Surgery Plastic and Reconstructive Surgery
DX: K29.50 Unspecified chronic gastritis without bleeding (principal); K21.00 Gastro-esophageal reflux disease with esophagitis, without bleeding; K92.1 Melena; K44.9 Diaphragmatic hernia without obstruction or gangrene; K29.80 Duodenitis without bleeding; K57.30 Diverticulosis of large intestine without perforation or abscess without bleeding; K64.4 Residual hemorrhoidal skin tags; K64.2 Third degree hemorrhoids; E66.01 Morbid (severe) obesity due to excess calories; I10 Essential (primary) hypertension; Z90.721 Acquired absence of ovaries, unilateral; Z98.891 History of uterine scar from previous surgery; Z98.51 Tubal ligation status; Z80.1 Family history of malignant neoplasm of trachea, bronchus and lung; Z80.49 Family history of malignant neoplasm of other genital organs; Z88.7 Allergy status to serum and vaccine; Z88.0 Allergy status to penicillin; Z88.1 Allergy status to other antibiotic agents; Z79.899 Other long term (current) drug therapy; Z68.43 Body mass index [BMI] 50.0-59.9, adult
CPT/HCPCS: 81025; 88305; 45378; 43239; J2704; J2001

== ENCOUNTER → 2023-02-21 | Outpatient (CLI) | payer OTHER ==
[2023-02-21 13:16] VITALS: BP 129/84; PULSE 68; TEMP 98.4; BMI 52.0
--- NOTE | 2023-02-21 14:22 | P.BASOAP ---
Subjective Progress Note Date: 02/21/23 She is on saboxone. Past history of Meth in urine. Pending food journal. EKG and cardiac assessed. She wants the sleeve. She tolerates reflux. Biopsy is unremarkable. Otherwise, demonstrates understanding for procedure. She is monitoring her weight. Objective - Vital Signs Vital signs: Vital Signs Temp 98.4 F 02/21/23 13:10 Pulse 68 02/21/23 13:10 Resp BP 129/84 02/21/23 13:10 Pulse Ox FiO2 Intake & Output 02/20/23 02/21/23 02/21/23 18:59 06:59 18:59 Weight 150.593 kg Assessment/Plan Plan: Date: 02/21/23 Initial Weight: Initial BMI: Current Weight: 150.593 kg Current BMI: 52.0 Type of Surgery: Total Volume in Band: Previous Volume: Volume Removed: Volume Added: Band Size:
== END ==
LOC: BARWHC3 12:46
PROVIDERS: ATTEND Surgery Plastic and Reconstructive Surgery
DX: E66.01 Morbid (severe) obesity due to excess calories (principal); F17.200 Nicotine dependence, unspecified, uncomplicated; Z68.43 Body mass index [BMI] 50.0-59.9, adult; Z88.6 Allergy status to analgesic agent; Z91.013 Allergy to seafood; Z88.7 Allergy status to serum and vaccine; Z91.018 Allergy to other foods; Z88.1 Allergy status to other antibiotic agents; Z88.0 Allergy status to penicillin
CPT/HCPCS: 99211

== ENCOUNTER → 2023-03-05 | Outpatient (CLI) | payer OTHER ==
[2023-03-05 11:11] VITALS: BMI 51.5
== END ==
LOC: BARWHC3 08:45
PROVIDERS: ATTEND Surgery Plastic and Reconstructive Surgery
DX: E66.01 Morbid (severe) obesity due to excess calories (principal); F17.200 Nicotine dependence, unspecified, uncomplicated; Z71.3 Dietary counseling and surveillance; Z68.43 Body mass index [BMI] 50.0-59.9, adult; Z91.013 Allergy to seafood; Z88.7 Allergy status to serum and vaccine; Z88.1 Allergy status to other antibiotic agents; Z91.018 Allergy to other foods; Z88.0 Allergy status to penicillin; Z88.8 Allergy status to other drugs, medicaments and biological substances
CPT/HCPCS: 97804

== ENCOUNTER → 2023-07-04 | Outpatient (CLI) | payer OTHER ==
[2023-07-04 13:30] VITALS: BP 117/80; PULSE 86; TEMP 98.3; BMI 50.3
--- NOTE | 2023-07-04 14:01 | P.BASOAP ---
Subjective Progress Note Date: 07/04/23 She is cutting down her subaxone and has constipation. Fidget to prevent DVT. Down 369 to 305 pounds. She is eating once per day. She has water retention. FDD plane. Needs lactulose for constipation. Already drinking 150 oz. Off heart meds due to slow heart rate and dizziness. Objective - Vital Signs Vital signs: Vital Signs Temp 98.3 F 07/04/23 13:15 Pulse 86 07/04/23 13:15 Resp BP 117/80 07/04/23 13:15 Pulse Ox FiO2 Intake & Output 07/03/23 07/04/23 07/04/23 18:59 06:59 18:59 Weight 145.603 kg Assessment/Plan Plan: Date: 07/04/23 Initial Weight: Initial BMI: Current Weight: 145.603 kg Current BMI: 50.3 Type of Surgery: Total Volume in Band: Previous Volume: Volume Removed: Volume Added: Band Size:
== END ==
LOC: BARWHC3 13:03
PROVIDERS: ATTEND Surgery Plastic and Reconstructive Surgery
DX: Z53.9 Procedure and treatment not carried out, unspecified reason (principal)
CPT/HCPCS: 99211

== ENCOUNTER → 2023-07-16 | Outpatient (CLI) | payer OTHER ==
[2023-07-16 15:32] LABS: Basophils # (A) 0.05 X 10*3/uL (0.00-0.10); Basophils % (A) 0.6 %; Eosinophils # (A) 0.06 X 10*3/uL (0.04-0.35); Eosinophils % (A) 0.7 %; HCT 38.8 % (37.2-46.3); HGB 12.2 d/dL (12.0-15.0); Lymphocytes # (A) 1.33 X 10*3/uL (0.90-5.00); Lymphocytes % (A) 16.3 %; MCH 28.4 pg (27.0-32.0); MCHC 31.4 d/dL (32.0-37.0); MCV 90.4 FL (80.0-97.0); Mean Platelet Volume 12.2 FL (9.5-12.2); Monocytes # (A) 0.42 X 10*3/uL (0.20-1.00); Monocytes % (A) 5.1 %; NRBC Per 100 WBC 0 X 10*3/uL (0.00-0.01); Neutrophils % (A) 77.2 %; Platelet Count 267 X 10*3/uL (140-440); RBC 4.29 X 10*6/uL (4.10-5.20); RDW 14.4 % (11.5-14.5); WBC 8.17 X 10*3/uL (4.50-10.00)
[2023-07-16 15:49] LABS: ALT 9 U/L (8-44); AST 14 U/L (13-35); Albumin 4.6 d/dL (3.8-4.9); Albumin/Globulin Ratio 1.53 Ratio (1.60-3.17); Alkaline Phosphatase 70 U/L (41-126); BUN/Creat Ratio 28.57 Ratio (12.00-20.00); Calcium 9.6 mg/dL (8.7-10.3); Carbon Dioxide 24.1 mmol/L (21.6-31.8); Chloride 101 mmol/L (96-109); Glucose 99 mg/dL (70-110); Potassium 4.6 mmol/L (3.5-5.5); Sodium 137 mmol/L (135-145); Total Bilirubin 0.2 mg/dL (0.3-1.2); Total Protein 7.6 d/dL (6.2-8.2)
== END | disposition home or self-care (01) ==
LOC: LABPAT 08:25
PROVIDERS: ATTEND Surgery Plastic and Reconstructive Surgery
DX: Z01.812 Encounter for preprocedural laboratory examination (principal)
CPT/HCPCS: 36415; 80053; 85025; 86850; 86900; 86901

== ENCOUNTER 2023-07-23 09:29 | Inpatient (IN) | payer OTHER ==
[2023-07-17 12:46] VITALS: BMI 46.3
--- NOTE | 2023-07-23 08:49 | P.GSHP ---
History of Present Illness H&P Date: 07/23/23 CHIEF COMPLAINT: Morbid obesity HISTORY OF PRESENT ILLNESS: Geovanna Mata is a 43-year-old female who comes with lifelong morbid obesity. As result of morbid obesity, she has developed hypertensive heart disease with congestive heart failure, osteoarthritis of the hips and knees. She has completed medical supervised weight loss. She completed medical including cardiac assessment. She has completed psychological risk assessment. All surgical options were reviewed. She elected for gastric b ypass. At height of 5 feet 8 inches, her ideal body weight is 163 pounds. She comes in 304 pounds. Her body mass index is 46.4 She is 141 pounds overweight. PAST MEDICAL HISTORY: 1. Morbid obesity due to excess calories 2. Body mass index of 46.4 3. Osteoarthritis of the knees. 4. Osteoarthritis of the lower back. 5. Hypertensive heart disease 6. Gastroesophageal reflux disease 7. Hyperlipidemia 8. Depressive disorder 9. Congestive heart failure 10. Posttraumatic stress disorder 11. Generalized anxiety disorder 12. Chronic constipation 13. Opiate addiction 14. Pheochromocytoma PAST SURGICAL HISTORY: 1. Right oophorectomy 2. Tubal ligation 3. Heart catheterization 4. section HOME MEDICATIONS: Home Medications Medication Instructions Recorded Confirmed Bumetanide [BUMEX] 1 mg PO BID PRN 11/06/18 07/17/23 Albuterol Inhaler [Ventolin Hfa 2 puff INHALATION RT-QID PRN 02/11/22 07/17/23 Inhaler] Buprenorphine HCl/Naloxone HCl 0.5 film SL DAILY 02/11/22 07/17/23 [Suboxone 8 mg-2 mg Sl Film] lisinopriL [Prinivil] 5 mg PO DAILY PRN 02/11/22 07/17/23 Docusate [Colace] 100 mg PO DAILY 01/03/23 07/17/23 Naloxegol Oxalate [Movantik] 25 mg PO DAILY PRN 01/03/23 07/17/23 Ergocalciferol [Vitamin D2 (1250 50,000 unit PO SA 01/22/23 07/17/23 Mcg = 66493 Iu)] Biotin [Biotin Disolve] 5,000 mcg PO DAILY 01/25/23 07/17/23 Multivitamin/Iron/Folic Acid 1 each PO DAILY 01/25/23 07/17/23 [Centrum Women Tablet] Vitamin A 2,400 mcg PO DAILY 01/25/23 07/17/23 Acetaminophen [Tylenol Arthritis] 1,300 mg PO DIRECTED PRN 07/17/23 07/17/23 Lactulose [Cephulac] 20 gm PO BID PRN 07/17/23 07/17/23 ALLERGIES: Allergies Allergy/AdvReac Type Severity Reaction Status Date / Time shellfish derived Allergy Intermediate Itching Verified 07/17/23 12:28 Pertussis Vaccines Allergy Unknown ARM Verified 07/17/23 12:28 SWELLING aspirin Allergy has had Verified 07/17/23 12:28 itching and hives in past macadamia nut oil Allergy ITCHING IN Verified 07/17/23 12:28 THROAT, HIVES, nitrofurantoin Allergy Rash/Hives Verified 07/17/23 12:28 [From Macrobid] nitrofurantoin Allergy Rash/Hives Verified 07/17/23 12:28 macrocrystalline [From Macrobid] Penicillins Allergy Unknown Verified 07/17/23 12:28 Childhood adhesive tape AdvReac Rash/Hives Verified 07/17/23 12:28 SOCIAL HISTORY: Past tobacco abuse, heroin, marijuana, opiate addiction FAMILY HISTORY: No family history of ulcerative colitis disease or Crohn's di sease. Family history of morbid obesity. No lupus in the family. No reports of stomach or esophageal cancer. REVIEW OF ORGAN SYSTEMS: CONSTITUTIONAL: At height of 5 feet 8 inches, her ideal body weight is 163 pounds. She comes in 304 pounds. Her body mass index is 46.4 She is 141 pounds overweight. HEENT: Denies any active troubles with vision or hearing. ENDOCRINE: Denies diabetes. Denies hypothyroidism. CARDIOVASCULAR: Past reports of palpitations RESPIRATORY: Has daytime somnolence. GASTROINTESTINAL: Denies any bright red blood per rectum. Has gastroesophageal reflux disease. MUSCULOSKELETAL: Has lower back pain and joint pain. Has osteoarthritis of the knees. NEURO: No headaches. No seizure disorders. PSYCH: Has depression. No suicidal ideation. RHEUMATOLOGIC: No lupus. No rheumatoid arthritis. HEMATOLOGIC: Denies any abnormal bleeding or bruising. No personal history of DVTs. SKIN: Has rash. No skin cancer. PHYSICAL EXAM: VITAL SIGNS: Height 5 foot 8 inches, weight 304 pounds. BMI 46.4 GENERAL: Well-developed in no acute distress. HEENT: No scleral icterus. Extraocular movements grossly intact. Hears conversational speech. No nasal drainage. NECK: Supple without lymphadenopathy. CHEST: Nonlabored respirations with equal bilateral excursions. CARDIOVASCULAR: Regular rate and regular rhythm. Distal 2+ pulses. ABDOMEN: Obese, soft, nontender, nondistended. MUSCULOSKELETAL: No clubbing, cyanosis. NEURO: No focal or lateralizing signs. Cranial nerves 2 through 12 grossly within normal limits. PSYCH: Appropriate affect. Alert and oriented to person, place and time. SKIN: Good skin turgor. Well perfused. ASSESSMENT: 1. Morbid obesity due to excess calories 2. Body mass index of 46.4 3. Osteoarthritis of the knees. 4. Osteoarthritis of the lower back. 5. Hypertensive heart disease 6. Gastroesophageal reflux disease 7. Hyperlipidemia 8. Depressive disorder 9. Congestive heart failure 10. Posttraumatic stress disorder 11. Generalized anxiety disorder 12. Chronic constipation 13. Opiate addiction 14. Pheochromocytoma PLAN: 1. Bariatric options between a sleeve, band and a Hipolito-en-Y gastric bypass were reviewed in detail. The patient elected for a gastric sleeve. Robotic assisted approach described. 2. The [place] [facility] Data was also reviewed with benefits and risks as described. 3. An 8 page second-generation bariatric consent form was reviewed in detail including potential of bleeding, infection, leaks, adequate weight loss, nutritional deficiencies which the patient demonstrated understanding of the risks. 4. A 2 week high-protein low caloric 800 kcal diet described to address hepatomegaly. 5. Preoperative labs including complete metabolic panel and CBC with type and screen recommended. 6. DVT prophylaxis per [place] [facility]. 7. Antibiotic prophylaxis. 8. Inpatient hospitalization anticipated for more than 2 nights. 9. All questions and concerns were addressed with the patient. 10. She is at elevated risk for perioperative complications secondary to history of drug abuse. 11. Overall, patient has expressed understanding of bariatric care including postoperative diet and commitment of lifestyle. Patient should benefit from surgical intervention for correction of her morbid obesity. 12. Nonnarcotic pain management reviewed. Past Medical History Past Medical History: Hypertension Additional Past Medical History / Comment(s): obesity, pheochromocytoma, Opioid addiction clean since 2020. 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 Patient states abnormal t waves. B/P UNDER CONTROL WITH WEIGHT LOSS, CHRONIC CONSTIPATION History of Any Multi-Drug Resistant Organisms: None Reported Past Surgical History: Section, Heart Catheterization, Tubal Ligation Additional Past Surgical History / Comment(s): D&C, right ovary removed , EGD/COLONOSCOPY Past Anesthesia/Blood Transfusion Reactions: No Reported Reaction Smoking Status: Former smoker - Past Family History Father Family Medical History: Cancer Additional Family Medical History / Comment(s): lung Mother Family Medical History: Cancer Additional Family Medical History / Comment(s): uterine Medications and Allergies Home Medications Medication Instructions Recorded Confirmed Type Bumetanide [BUMEX] 1 mg PO BID PRN 11/06/18 07/17/23 History Albuterol Inhaler [Ventolin Hfa 2 puff INHALATION RT-QID PRN 02/11/22 07/17/23 History Inhaler] Buprenorphine HCl/Naloxone HCl 0.5 film SL DAILY 02/11/22 07/17/23 History [Suboxone 8 mg-2 mg Sl Film] lisinopriL [Prinivil] 5 mg PO DAILY PRN 02/11/22 07/17/23 History Docusate [Colace] 100 mg PO DAILY 01/03/23 07/17/23 History Naloxegol Oxalate [Movantik] 25 mg PO DAILY PRN 01/03/23 07/17/23 History Ergocalciferol [Vitamin D2 (1250 50,000 unit PO SA 01/22/23 07/17/23 History Mcg = 05085 Iu)] Biotin [Biotin Disolve] 5,000 mcg PO DAILY 01/25/23 07/17/23 History Multivitamin/Iron/Folic Acid 1 each PO DAILY 01/25/23 07/17/23 History [Centrum Women Tablet] Vitamin A 2,400 mcg PO DAILY 01/25/23 07/17/23 History Acetaminophen [Tylenol Arthritis] 1,300 mg PO DIRECTED PRN 07/17/23 07/17/23 History Lactulose [Cephulac] 20 gm PO BID PRN 07/17/23 07/17/23 History Allergies Allergy/AdvReac Type Severity Reaction Status Date / Time shellfish derived Allergy Intermediate Itching Verified 07/17/23 12:28 Pertussis Vaccines Allergy Unknown ARM Verified 07/17/23 12:28 SWELLING aspirin Allergy has had Verified 07/17/23 12:28 itching and hives in past macadamia nut oil Allergy ITCHING IN Verified 07/17/23 12:28 THROAT, HIVES, nitrofurantoin Allergy Rash/Hives Verified 07/17/23 12:28 [From Macrobid] nitrofurantoin Allergy Rash/Hives Verified 07/17/23 12:28 macrocrystalline [From Macrobid] Penicillins Allergy Unknown Verified 07/17/23 12:28 Childhood adhesive tape AdvReac Rash/Hives Verified 07/17/23 12:28
[~2023-07-23 09:29] MED LIST: ACETAMINOPHEN TAB 500 MG TAB PO PRN; ALVIMOPAN 12 MG CAPSULE PO PRN; CHLORHEXIDINE GLUCONATE 15 ML CUP MUCOUS MEM PRN; DEXAMETHASONE SOD PHOSPHATE 4 MG/ML 1 ML VIAL IV ONE; ENOXAPARIN 40 MG/0.4 ML SYRINGE SQ PRN; LIDOCAINE 1% (10MG/ML) FOR IV START INTRADERMA PRN; ONDANSETRON 4 MG/2 ML VIAL IVP ONE; ONDANSETRON 4 MG/2 ML VIAL IVP PRN; PANTOPRAZOLE 40 MG/10 ML VIAL IVP PRN; SCOPOLAMINE 1 MG/72 HR PATCH TRANSDERM STA; ceFAZolin 3 GM in SODIUM CHLORIDE 0.9% 100 ML IVPB PRN
[2023-07-23] MEDS: LACTATED RINGERS 1,000 ML IV SCH (10:22)
[2023-07-23] MEDS ORDERED: fentaNYL (PF) 50 MCG/ML 2 ML AMP ONE (10:30)
[2023-07-23] MEDS ORDERED: GLYCOPYRROLATE 0.2 MG/ML 2 ML VIAL ONE (10:30)
[2023-07-23] MEDS ORDERED: LIDOCAINE 1% INJ 10MG/ML (20 ML MDV) ONE (10:30)
[2023-07-23] MEDS ORDERED: SUCCINYLCHOLINE CHLORIDE 200 MG/10 ML VIAL IV ONE (10:30)
[2023-07-23] MEDS ORDERED: PROPOFOL 10 MG/ML 20 ML VIAL IV ONE (10:30)
[2023-07-23] MEDS ORDERED: ROCURONIUM 10 MG/ML (5 ML VIAL) IV ONE (10:30)
[2023-07-23] MEDS ORDERED: NEOSTIGMINE 1 MG/ML 10 ML VIAL ONE (10:30)
[2023-07-23] MEDS ORDERED: KETAMINE HCL IN 0.9 % NACL 50 MG/5 ML SYRINGE ONE (10:30)
[2023-07-23] MEDS ORDERED: LIDOCAINE 2% INJ 20 MG/ML SQ ONE (11:10)
[2023-07-23] MEDS: HYDROmorphone 0.5 MG/0.5 ML SYRINGE IVP PRN ×3 (12:40→13:10)
[2023-07-23] MEDS ORDERED: NALOXONE 0.4 MG/ML 1 ML VIAL IV PRN (12:49)
[2023-07-23] MEDS: droPERidol 5 MG/2 ML VIAL IVP ONE ×2 (12:49→14:40)
[2023-07-23] MEDS ORDERED: ALBUTEROL NEBULIZED 2.5 MG/3 ML INHALATION PRN (12:53)
[2023-07-23] MEDS ORDERED: NON FORMULARY DRUG (Naloxegol Oxalate [Movantik] 25 MG Tablet) PO PRN (12:53)
[2023-07-23] MEDS ORDERED: BUMETANIDE 1 MG TAB PO PRN (12:53)
[2023-07-23] MEDS ORDERED: LACTULOSE 20 GM/30 ML CUP PO PRN (12:53)
[2023-07-23] MEDS ORDERED: lisinopriL 5 MG TAB PO PRN (12:53)
--- NOTE | 2023-07-23 12:55 | P.PN ---
Progress Note - Text Progress Note Date: 07/23/23 Due to high risk of bleeding, DVT prophylaxis converted from Lovenox to heparin
--- NOTE | 2023-07-23 12:59 | P.OP ---
Date of Procedure: 07/23/23 Description of Procedure: SURGEON: MARY KELLER MD PREOPERATIVE DIAGNOSES: 1. Morbid obesity due to excess calories 2. Body mass index of 46.4 3. Osteoarthritis of the knees. 4. Osteoarthritis of the lower back. 5. Hypertensive heart disease 6. Gastroesophageal reflux disease 7. Hyperlipidemia 8. Depressive disorder 9. Pheochromocytoma 10. Posttraumatic stress disorder 11. Generalized anxiety disorder 12. Chronic constipation 13. Opiate addiction POSTOPERATIVE DIAGNOSES: 1. Morbid obesity due to excess calories 2. Body mass index of 46.4 3. Osteoarthritis of the knees. 4. Osteoarthritis of the lower back. 5. Hypertensive heart disease 6. Gastroesophageal reflux disease 7. Hyperlipidemia 8. Depressive disorder 9. Pheochromocytoma 10. Posttraumatic stress disorder 11. Generalized anxiety disorder 12. Chronic constipation 13. Opiate addiction OPERATION: 1. Robotic assisted daVinci Xi laparoscopic sleeve gastrectomy with 40-Mongolian bougie, multiport. 2. Intraoperative esophagogastroduodenoscopy. ANESTHESIA: Gen. local anesthetic ESTIMATED BLOOD LOSS: 10 mL SPECIMENS REMOVED: Sleeve gastrectomy COMPLICATIONS: None. FINDINGS: 1. Negative intraoperative esophagogastrojejunoscopy leak test. 2. No hepatomegaly and no large hiatus hernia. 3. Total of 6 staplers used including 2 - 60 mm green robot nik and 4 - 60 mm blue robot loads used to create the gastric sleeve. 4. Sleeve gastrectomy, 27 x 5 cm INDICATIONS: Geovanna Mata is a 43-year-old female who comes with lifelong morbid obesity. As result of morbid obesity, she has developed hypertensive heart disease with congestive heart failure, osteoarthritis of the hips and knees. She has completed medical supervised weight loss. She completed medical including cardiac assessment. She has completed psychological risk assessment. All surgical options were reviewed. At height of 5 feet 8 inches, her ideal body weight is 163 pounds. She comes in 304 pounds. Her body mass index is 46.4 She is 141 pounds overweight. All surgical options for morbid obesity had been described using the [place] bariatric surgery collaborative comorbidity resolution including complication risk score. A second-generation bariatric consent form was described in detail including the possibility of protein malnutrition, leaks, gastric stricture, venous thrombosis, gastroesophageal reflux disease, need for further surgery for which she demonstrated understanding. Benefits and risks of the procedure were described at length. Informed consent was obtained. DESCRIPTION: The patient was brought into the operating room theater. Preoperatively she had received Lovenox subcutaneously for DVT prophylaxis. Additionally she had Peridex oral solution as an oral decontaminant. After general induction, the abdomen was prepped and draped in standard sterile fashion. An Ioban draping was placed along the abdomen. A robotic da Kimberly Xi system was prepped and primed. At 13 cm from the xiphoid, proposed port sites were marked with indelible marker along the anterior axillary line bilaterally, mid axillary line bilaterally with each ports were marked 10 to 15 cm from each other. The robotic stapler port was marked for the right midclavicular line. A 5 mm 0 degrees laparoscopic trocar entry was performed along the left upper quadrant. The abdomen was insufflated to 15 mmHg pressure was tolerated well. Diagnostic laparoscopy demonstrated no injury to bowel, viscera, or mesentery. No evidence of large hiatus hernia was identified. The liver edge was sharp consistent with 2 week low-carb high-protein diet. A 8 mm port was placed along the left upper abdominal wall after exchanging the 5 mm port. A separate 8 mm port was placed along the left lateral abdominal wall. Please note that the ports were placed at least 20 cm away from the target anatomy. Care was taken to check each robotic arms were safely away from collision with the bed or the patient. At the epigastrium, a medium sized Rashida liver retractor was placed under direct visualization with the [employer] placed under the right shoulder of the patient. Next, 12-mm robot stapler port was placed along the right upper quadrant. The camera 8-mm port was maintained along the epigastrium. The patient was repositioned in reverse Trendelenburg position at 21-degrees after lowering the bed. The robot was docked along the left side of the patient. Using a grasper for arm 4, a vessel sealer for arm 3, including grasper for arm 1, the robotic system was docked and primed as described. Instruments were interchanged by the assistant product manager for stapler loads. The camera was placed at 30- degrees down. I had sat at the console. The pylorus was identified and 6 cm proximally along the greater curvature of the stomach, the short gastrics were mobilized upwards to the angle of His using a vessel sealer. Hemostasis was excellent during this portion of the procedure. Next, the upper pole of the stomach was adherent to the left elmo, which was gently dissected free using atraumatic grasper. I went to the head of the bed and placed 40-Mongolian blunt bougie into the stomach. The bougie was readjusted by the nurse stapler hand. Robotic stapler green load 60 mm 2 followed by blue 60 mm x 4 loads were used to create the sleeve. Initial firing was across the antrum of the stomach towards the angle of His. The staple line was linear without corkscrewing. The space from the angularis incisura of the sleeve was approximately 4 cm. mild bleeding was found at the hiatus without involvement of the spleen. Bleeding was controlled using cautery. I then went to the head of the bed to perform the intraoperative esophagogastroduodenoscopy leak test. The bougie was withdrawn. The upper pole of the stomach was bathed using normal saline solution. The scope was withdrawn with careful inspection along the staple line for which no leaks were found along the entire length. Additionally,the sleeve was completely hemostatic without any encroachment along the angularis incisura. Its topology was a soft "J". No stricture was encountered upon placement of the scope. The GI tract was desufflated. The patient tolerated this portion of the procedure well. The scope was completely withdrawn. The robot was undocked. I then rescrubbed into case, whereby the irrigation fluid was aspirated from the abdominal cavity. Tisseel fibrin sealant was placed along the entire staple length. Once dried the Rashida liver retractor was removed. Attention was now brought to removal of the specimen. The distal end of the sleeve gastrectomy specimen was brought out through the 12 mm port at the left upper quadrant. The specimen was gently removed en total. No contamination had occurred during this process. All instruments and pneumoperitoneum including irrigation fluid was removed from the abdominal cavity. The 12 mm port site was closed using 0-Vicryl and Sonny Javed and irrigated with diluted hydrogen peroxide. The final incisions were closed using subcuticular interrupted suture of 4-0 Monocryl. Exofin was applied to the skin once the skin had been cleansed. OptiFoam dressing was placed along the stomach extraction site. The sleeve specimen was measured and checked also for leaks which none were found. At the end of the procedure, needle, sponge, and instrument count was verified correct by the ophthalmology surgical technician. The patient was taken to the postanesthesia care unit in stable condition. She had tolerated the procedure well. Intraoperative films and findings were reviewed with the patient's family. Due to high risk of bleeding, heparin for DVT prophylaxis is sought.
[2023-07-23] MEDS: CYCLOBENZAPRINE 10 MG TAB PO SCH ×3 (14:41→21:43)
[2023-07-23] MEDS: SIMETHICONE 40 MG/0.6 ML DROPS 2,000 MG/30 ML BOTTLE PO SCH ×3 (15:07→21:44)
[2023-07-23] MEDS: HEPARIN SODIUM,PORCINE 5,000 UNIT/ML 1 ML VIAL SQ SCH ×2 (15:07→21:43)
[2023-07-23] MEDS: ACETAMINOPHEN IV (For NPO) 1,000 MG in EMPTY BAG 1 BAG IVPB SCH ×2 (15:07→21:43)
[2023-07-23] MEDS: 0.9% NACL WITH KCL 20 MEQ/L 1,000 ML IV SCH ×2 (15:07→21:44)
[2023-07-23] MEDS: ALBUTEROL NEBULIZED 2.5 MG/3 ML INHALATION SCH ×2 (16:21→20:12)
[2023-07-23] MEDS: DEXAMETHASONE SOD PHOSPHATE 4 MG/ML 1 ML VIAL IVP SCH ×2 (17:44→23:36)
[2023-07-24 02:04] VITALS: TEMP 98.5
[2023-07-24] MEDS: 0.9% NACL WITH KCL 20 MEQ/L 1,000 ML IV SCH (03:25)
[2023-07-24] MEDS: ACETAMINOPHEN IV (For NPO) 1,000 MG in EMPTY BAG 1 BAG IVPB SCH ×2 (05:09→09:16)
[2023-07-24] MEDS: DEXAMETHASONE SOD PHOSPHATE 4 MG/ML 1 ML VIAL IVP SCH (05:09)
[2023-07-24] MEDS: LACTATED RINGERS 1,000 ML IV SCH (06:03)
[2023-07-24 06:11] LABS: African American GFR (CKD) >90 (>60 ml/min/1.73 sqM); Anion Gap 14 mmol/L; Blood Urea Nitrogen 7 mg/dL (7-17); Calcium 8.7 mg/dL (8.4-10.2); Carbon Dioxide 17 mmol/L (22-30); Chloride 105 mmol/L (98-107); Magnesium 1.9 mg/dL (1.6-2.3); Non-African American GFR(CKD) >90 (>60 ml/min/1.73 sqM); Potassium 4.1 mmol/L (3.5-5.1); Sodium 136 mmol/L (137-145)
[2023-07-24 07:28] LABS: Basophils % (A) 0 %; Eosinophils # (A) 0.2 k/uL (0-0.7); Eosinophils % (A) 2 %; HCT 35.7 % (34.0-46.0); HGB 11.9 gm/dL (11.4-16.0); Lymphocytes # (A) 0.7 k/uL (1.0-4.8); Lymphocytes % (A) 6 %; MCH 29.8 pg (25.0-35.0); MCHC 33.3 g/dL (31.0-37.0); MCV 89.4 fL (80.0-100.0); Mean Platelet Volume 9.8; Monocytes # (A) 0.4 k/uL (0-1.0); Monocytes % (A) 3 %; Neutrophils # (A) 11.2 k/uL (1.3-7.7); Neutrophils % (A) 89 %; Platelet Count 238 k/uL (150-450); RDW 14.6 % (11.5-15.5); WBC 12.5 k/uL (3.8-10.6)
[2023-07-24 08:00] VITALS: BP 150/97; PULSE 80; RESP 16
[2023-07-24] MEDS ORDERED: 0.9% NACL WITH KCL 20 MEQ/L 1,000 ML IV SCH (08:00)
[2023-07-24] MEDS: HEPARIN SODIUM,PORCINE 5,000 UNIT/ML 1 ML VIAL SQ SCH (08:28)
[2023-07-24] MEDS: CYCLOBENZAPRINE 10 MG TAB PO SCH (08:28)
[2023-07-24] MEDS: SIMETHICONE 40 MG/0.6 ML DROPS 2,000 MG/30 ML BOTTLE PO SCH (08:29)
--- NOTE | 2023-07-24 08:47 | FL ---
EXAMINATION TYPE: FL UGI DATE OF EXAM: 07/24/2023 COMPARISON: NONE HISTORY: Postop reactive surgery TECHNIQUE: A single contrast UGI study is performed with Isovue-370. A total of 7 seconds of fluoro scopic time was utilized during procedure and 146 images obtained. Total dose area product (DAP) in u Gy*m?, mGy*cm? (or similar): 9469. FINDINGS: The esophagus shows normal motility and emptying into the stomach. Mild esophageal dysmotility with t ertiary contractions. No evidence of hiatal hernia or stricture noted. Postsurgical changes from albin aminta sleeve without evidence for leak or obstruction. IMPRESSION: Postsurgical changes from gastric sleeve without evidence for leak or obstruction.
[2023-07-24] MEDS: ALBUTEROL NEBULIZED 2.5 MG/3 ML INHALATION SCH (09:00)
[2023-07-24] MEDS ORDERED: DOCUSATE 100 MG CAP PO SCH (09:00)
[2023-07-24] MEDS ORDERED: NON FORMULARY DRUG (Buprenorphine Hcl/Naloxone Hcl [Suboxone 8 Mg-2 Mg Sl Film] 1 EACH Fil SUBLINGUAL SCH (09:00)
--- NOTE | 2023-07-24 11:29 | P.DS ---
Providers Date of admission: 07/23/23 09:29 Expected date of discharge: 07/24/23 Attending physician: Dori Lopes Primary care physician: Stated None Hospital Course: Discharge diagnosis 1. Morbid obesity due to excess calories 2. Body mass index of 46.4 3. Osteoarthritis of the knees. 4. Osteoarthritis of the lower back. 5. Hypertensive heart disease 6. Gastroesophageal reflux disease 7. Hyperlipidemia 8. Depressive disorder 9. Pheochromocytoma 10. Posttraumatic stress disorder 11. Generalized anxiety disorder 12. Chronic constipation 13. Opiate addiction Hospital course Geovanna Mata is a 43-year-old female who comes with lifelong morbid obesity. She is status post Robotic assisted daVinci Xi laparoscopic sleeve gastrectomy. Patient tolerated surgery well. Her pain is controlled. Upper GI shows no evidence of leak or obstruction. She is tolerating diet. She has been up and ambulating. She is having flatus. Denies a difficult urinating. She is afebrile. She is stable for discharge. Physician Zoning Technician note has been reviewed by physician. Signing provider agrees with the documented findings, assessment, and plan of care. Patient Condition at Discharge: Stable Plan - Discharge Summary Discharge Rx Participant: Yes New Discharge Prescriptions: New bisacodyL [Dulcolax] 5 mg PO DAILY PRN #10 tab PRN Reason: Constipation Simethicone 40 mg/0.6 ml Drops [Mylicon Drops] 40 mg PO PCHS PRN #30 ml PRN Reason: Gas Ondansetron Odt [Zofran Odt] 4 mg PO Q8HR PRN #9 tab PRN Reason: Nausea Acetaminophen Tab [Tylenol] 1,000 mg PO Q6HR PRN #30 tablet PRN Reason: Pain Omeprazole [PriLOSEC] 40 mg PO DAILY #30 cap Continue lisinopriL [Prinivil] 5 mg PO DAILY PRN PRN Reason: high blood pressure Albuterol Inhaler [Ventolin Hfa Inhaler] 2 puff INHALATION RT-QID PRN PRN Reason: Shortness Of Breath Buprenorphine HCl/Naloxone HCl [Suboxone 8 mg-2 mg Sl Film] 0.5 film SL DAILY Naloxegol Oxalate [Movantik] 25 mg PO DAILY PRN PRN Reason: Constipation Docusate [Colace] 100 mg PO DAILY Lactulose [Cephulac] 20 gm PO BID PRN PRN Reason: Constipation Discontinued Bumetanide [BUMEX] 1 mg PO BID PRN PRN Reason: swelling Ergocalciferol [Vitamin D2 (1250 Mcg = 57441 Iu)] 50,000 unit PO SA Biotin [Biotin Disolve] 5,000 mcg PO DAILY Multivitamin/Iron/Folic Acid [Centrum Women Tablet] 1 each PO DAILY Acetaminophen [Tylenol Arthritis] 1,300 mg PO DIRECTED PRN PRN Reason: Pain Vitamin A 2,400 mcg PO DAILY Discharge Medication List Albuterol Inhaler [Ventolin Hfa Inhaler] 2 puff INHALATION RT-QID PRN 02/11/22 [History] Buprenorphine HCl/Naloxone HCl [Suboxone 8 mg-2 mg Sl Film] 0.5 film SL DAILY 02/11/22 [History] lisinopriL [Prinivil] 5 mg PO DAILY PRN 02/11/22 [History] Docusate [Colace] 100 mg PO DAILY 01/03/23 [History] Naloxegol Oxalate [Movantik] 25 mg PO DAILY PRN 01/03/23 [History] Lactulose [Cephulac] 20 gm PO BID PRN 07/17/23 [History] Acetaminophen Tab [Tylenol] 1,000 mg PO Q6HR PRN #30 tablet 07/24/23 [Rx] Omeprazole [PriLOSEC] 40 mg PO DAILY #30 cap 07/24/23 [Rx] Ondansetron Odt [Zofran Odt] 4 mg PO Q8HR PRN #9 tab 07/24/23 [Rx] Simethicone 40 mg/0.6 ml Drops [Mylicon Drops] 40 mg PO PCHS PRN #30 ml 07/24/23 [Rx] bisacodyL [Dulcolax] 5 mg PO DAILY PRN #10 tab 07/24/23 [Rx] Follow up [facility](s[place]23 9:00 am Activity/Diet/Wound Care/Special Instructions: Liquid diet only for 2 weeks No lifting over 4 pounds in 4 weeks May Shower. No soaking in bath tubs for 2 weeks Please notify your surgeon if you develop nausea and vomiting including new onset of abdominal pain. Continue to use incentive spirometry to prevent pneumonias. Please continue to ambulate at home to prevent blood clots in legs. Follow-up at the bariatric center. May shower. Dressings to be discontinued by surgeon in the office. Drink 64 oz of fluid daily. Start protein shakes on . Notify bariatric center for temp over 101.0, increased pain, drainage from incisions. No straws or carbonated beverages. Liquid diet only. Sugar content should be less than 6 g to avoid dumping syndrome. Take MOM for constipation. CRUSH, OPEN, OR CUT TABLETS LARGER THAN A SIZE OF A TIC TAC Do not take any vitamins until seen by surgeon due to increased bleeding risk Hold on taking the Bumex until seen by surgeon Discharge Disposition: HOME SELF-CARE
== END 2023-07-24 11:15 | disposition home or self-care (01) | DRG 403 ==
LOC: 2ORMAIN 09:29 → 4SSUR 12:57
PROVIDERS: ADMIT Surgery Plastic and Reconstructive Surgery; ATTEND Surgery Plastic and Reconstructive Surgery
PROC: 0DJ08ZZ Inspection of Upper Intestinal Tract, Via Natural or Artificial Opening Endoscopic (ICD-10-PCS; 2023-07-23)
PROC: 0DB64Z3 Excision of Stomach, Percutaneous Endoscopic Approach, Vertical (ICD-10-PCS; principal; 2023-07-23 10:45)
PROC: 8E0W4CZ Robotic Assisted Procedure of Trunk Region, Percutaneous Endoscopic Approach (ICD-10-PCS; 2023-07-23 10:45)
DX: E66.01 Morbid (severe) obesity due to excess calories (principal); I11.0 Hypertensive heart disease with heart failure; I50.9 Heart failure, unspecified; F11.20 Opioid dependence, uncomplicated; Z68.42 Body mass index [BMI] 45.0-49.9, adult; F32.A Depression, unspecified; D35.00 Benign neoplasm of unspecified adrenal gland; M17.0 Bilateral primary osteoarthritis of knee; K21.9 Gastro-esophageal reflux disease without esophagitis; E78.5 Hyperlipidemia, unspecified; F43.10 Post-traumatic stress disorder, unspecified; F41.1 Generalized anxiety disorder; K59.09 Other constipation; M47.816 Spondylosis without myelopathy or radiculopathy, lumbar region; M16.0 Bilateral primary osteoarthritis of hip; Z87.891 Personal history of nicotine dependence; Z90.721 Acquired absence of ovaries, unilateral; Z98.61 Coronary angioplasty status; Z79.899 Other long term (current) drug therapy; Z91.013 Allergy to seafood; Z88.7 Allergy status to serum and vaccine; Z88.6 Allergy status to analgesic agent; Z91.018 Allergy to other foods; Z88.3 Allergy status to other anti-infective agents; Z88.0 Allergy status to penicillin; Z91.048 Other nonmedicinal substance allergy status
CPT/HCPCS: 43235; 74240; 80051; 81025; 82310; 82565; 83735; 84100; 84520; 85025; 88307; 94640

== ENCOUNTER → 2023-08-01 | Outpatient (CLI) | payer OTHER ==
[2023-08-01 14:45] VITALS: BP 144/82; PULSE 82; RESP 12; TEMP 97.9; BMI 45.1
--- NOTE | 2023-08-01 15:10 | P.BASOAP ---
Subjective Progress Note Date: 08/01/23 She has minimal pain. She is doing very well. Weight stable. Her rash is better and went away. Binder is ok. She is getting 93 to 100 grams of protein daily. Objective - Vital Signs Vital signs: Vital Signs Temp 97.9 F 08/01/23 14:25 Pulse 82 08/01/23 14:25 Resp 12 08/01/23 14:25 BP 144/82 08/01/23 14:25 Pulse Ox FiO2 Intake & Output 07/31/23 08/01/23 08/01/23 18:59 06:59 18:59 Weight 130.635 kg Assessment/Plan Plan: Date: 08/01/23 Initial Weight: Initial BMI: Current Weight: 130.635 kg Current BMI: 45.1 Type of Surgery: Total Volume in Band: Previous Volume: Volume Removed: Volume Added: Band Size:
== END ==
LOC: BARWHC3 13:17
PROVIDERS: ATTEND Surgery Plastic and Reconstructive Surgery
DX: E66.01 Morbid (severe) obesity due to excess calories (principal); F17.200 Nicotine dependence, unspecified, uncomplicated; Z71.3 Dietary counseling and surveillance; Z68.42 Body mass index [BMI] 45.0-49.9, adult; Z91.013 Allergy to seafood; Z88.7 Allergy status to serum and vaccine; Z88.6 Allergy status to analgesic agent; Z91.018 Allergy to other foods; Z88.0 Allergy status to penicillin; Z91.048 Other nonmedicinal substance allergy status
CPT/HCPCS: 97802; G0463; 99211

== ENCOUNTER → 2023-08-22 | Outpatient (CLI) | payer OTHER ==
[2023-08-22 13:41] VITALS: BP 137/89; PULSE 87; TEMP 98.1; BMI 44.3
--- NOTE | 2023-08-22 13:55 | P.BASOAP ---
Subjective Progress Note Date: 08/22/23 DATE OF SERVICE: 08/22/2023 CHIEF COMPLAINT: Status post sleeve gastrectomy HISTORY OF PRESENT ILLNESS: Geovanna Mata is a 43-year-old female status post sleeve gastrectomy 07/23/2023. She is 1 month postop. She has lost 42 pounds in 2 months. Reports change in bowel habits with chronic constipation. No reports of gastroesophageal reflux disease. No reports of dysphagia. No reports of abdominal wall hernias. At height of 5 feet 7 inches, her ideal body weight is 158 pounds. She comes in 283 pounds from 287 pounds, 1 month ago. She has lost 4 pounds in 1 month. Her highest weight 347 pounds, body mass index 54.5. Her current body mass index is 44.3. Lifetime weight loss 64 pounds. Lifetime percent excess weight loss 34%. She is 125 pounds overweight. PHYSICAL EXAM: VITAL SIGNS: Height 5 foot 7 inches, weight 283 pounds. BMI 44.3 Vital Signs Temp 98.1 F 08/22/23 13:28 Pulse 87 08/22/23 13:28 Resp BP 137/89 08/22/23 13:28 Pulse Ox FiO2 GENERAL: Well-developed in no acute distress. HEENT: No scleral icterus. Extraocular movements grossly intact. Hears conversational speech. No nasal drainage. NECK: Supple without lymphadenopathy. CHEST: Nonlabored respirations with equal bilateral excursions. CARDIOVASCULAR: Regular rate and regular rhythm. Distal 2+ pulses. ABDOMEN: Incisions granulated. No incisional hernias. No peritonitis. MUSCULOSKELETAL: No clubbing, cyanosis. NEURO: No focal or lateralizing signs. Cranial nerves 2 through 12 grossly within normal limits. PSYCH: Appropriate affect. Alert and oriented to person, place and time. SKIN: Good skin turgor. Well perfused. ASSESSMENT: 1. Morbid obesity due to excess calories 2. Body mass index of 54.5 to 44.3 3. Osteoarthritis of the knees. 4. Osteoarthritis of the lower back. 5. Hypertensive heart disease 6. Gastroesophageal reflux disease 7. Hyperlipidemia 8. Depressive disorder 9. Congestive heart failure 10. Posttraumatic stress disorder 11. Generalized anxiety disorder 12. Chronic constipation 13. Opiate addiction 14. Pheochromocytoma 15. Status post sleeve gastrectomy PLAN: 1. Due for blood work. 2. For her bowel habits, recommend increase fluid intake with the following formula weight * .067. 3. Follow up in October 2023. 4. Prescription for lactulose for chronic constipation Objective - Vital Signs Vital signs: Vital Signs Temp 98.1 F 08/22/23 13:28 Pulse 87 08/22/23 13:28 Resp BP 137/89 08/22/23 13:28 Pulse Ox FiO2 Intake & Output 08/21/23 08/22/23 08/22/23 18:59 06:59 18:59 Weight 128.367 kg - Labs CBC & Chem 7: 08/22/23 14:49 08/22/23 14:49 Assessment/Plan Plan: Date: 08/22/23 Initial Weight: Initial BMI: Current Weight: 128.367 kg Current BMI: 44.3 Type of Surgery: Total Volume in Band: Previous Volume: Volume Removed: Volume Added: Band Size:
[2023-08-22 16:05] LABS: INR 1.1 (<1.2); Partial Thromboplastin Time 23.9 sec (22.0-30.0); Prothrombin Time 11.7 sec (10.0-12.5)
[2023-08-22 19:27] LABS: Basophils # (A) 0.05 X 10*3/uL (0.00-0.10); Basophils % (A) 0.5 %; Eosinophils # (A) 0.05 X 10*3/uL (0.04-0.35); Eosinophils % (A) 0.5 %; HCT 37.6 % (37.2-46.3); HGB 11.9 g/dL (12.0-15.0); Lymphocytes # (A) 1.24 X 10*3/uL (0.90-5.00); MCH 28.7 pg (27.0-32.0); MCHC 31.6 g/dL (32.0-37.0); MCV 90.8 FL (80.0-97.0); Mean Platelet Volume 13.6 FL (9.5-12.2); Monocytes # (A) 0.46 X 10*3/uL (0.20-1.00); Monocytes % (A) 4.8 %; NRBC Per 100 WBC 0 X 10*3/uL (0.00-0.01); Neutrophils # (A) 7.74 X 10*3/uL (1.80-7.70); Neutrophils % (A) 80.9 %; Platelet Count 250 X 10*3/uL (140-440); RBC 4.14 X 10*6/uL (4.10-5.20); RDW 15.5 % (11.5-14.5); WBC 9.57 X 10*3/uL (4.50-10.00)
[2023-08-22 19:30] LABS: Prealbumin 12.6 mg/dL (18.0-42.0)
[2023-08-22 19:33] LABS: Chol/HDL Ratio 7.05 Ratio; Magnesium 1.8 mg/dL (1.5-2.4); Phosphorus 3.3 mg/dL (2.4-5.1)
[2023-08-22 19:34] LABS: % Iron Saturation 8.06 (12.00-45.00); ALT 9 U/L (8-44); AST 12 U/L (13-35); Albumin 4.2 g/dL (3.8-4.9); Alkaline Phosphatase 71 U/L (41-126); Blood Urea Nitrogen 14.8 mg/dL (9.0-27.0); Calcium 9.3 mg/dL (8.7-10.3); Carbon Dioxide 20.9 mmol/L (21.6-31.8); Chloride 102 mmol/L (96-109); Ferritin 58.5 ng/mL (10.0-291.0); Globulin 2.8 g/dL (1.6-3.3); Glucose 75 mg/dL (70-110); Iron 22 UG/DL (50-170); LDL Cholesterol,Calculated 133.1 mg/dL (0.0-131.0); Potassium 3.8 mmol/L (3.5-5.5); Sodium 141 mmol/L (135-145); Total Bilirubin 0.2 mg/dL (0.3-1.2); Total Iron Binding Capacity 273 UG/DL (228-460)
[2023-08-23 14:55] LABS: Zinc, Serum 81 ug/dL (60-130)
[2023-08-24 06:04] LABS: Vit B1(Thiamine) 59 ug/L (38-122)
[2023-08-24 12:00] LABS: Vitamin A 18 ug/dL (38-106)
[2023-08-24 19:53] LABS: Selenium 148 mcg/L (63-160)
== END ==
LOC: BARWHC3 12:52
PROVIDERS: ATTEND Surgery Plastic and Reconstructive Surgery
DX: K21.9 Gastro-esophageal reflux disease without esophagitis (principal); E66.01 Morbid (severe) obesity due to excess calories; D50.8 Other iron deficiency anemias; K90.89 Other intestinal malabsorption; N19 Unspecified kidney failure; T56.894A Toxic effect of other metals, undetermined, initial encounter; K50.90 Crohn's disease, unspecified, without complications; E89.1 Postprocedural hypoinsulinemia; E55.9 Vitamin D deficiency, unspecified; K74.1 Hepatic sclerosis; F32.A Depression, unspecified; E78.5 Hyperlipidemia, unspecified; M17.0 Bilateral primary osteoarthritis of knee; M47.816 Spondylosis without myelopathy or radiculopathy, lumbar region; I11.0 Hypertensive heart disease with heart failure; I50.9 Heart failure, unspecified; F43.10 Post-traumatic stress disorder, unspecified; F41.1 Generalized anxiety disorder; F11.20 Opioid dependence, uncomplicated; F17.200 Nicotine dependence, unspecified, uncomplicated; D35.00 Benign neoplasm of unspecified adrenal gland; Z71.3 Dietary counseling and surveillance; Z98.84 Bariatric surgery status; Z91.013 Allergy to seafood; Z88.7 Allergy status to serum and vaccine; Z88.6 Allergy status to analgesic agent; Z91.018 Allergy to other foods; Z88.0 Allergy status to penicillin; Z91.048 Other nonmedicinal substance allergy status; Z88.1 Allergy status to other antibiotic agents; Z68.41 Body mass index [BMI] 40.0-44.9, adult
CPT/HCPCS: 84255; 84134; 84425; 80061; 80053; 82607; 82728; 82525; 82746; 83540; 83550; 83735; 84100; 84590; 84630; 85025; 85610; 85730; 82306; 83970; 83036; 97803; G0463; 99211

== ENCOUNTER → 2023-11-01 | Outpatient (CLI) | payer OTHER ==
--- NOTE | 2023-11-01 09:28 | FL ---
EXAMINATION TYPE: FL barium swallow DATE OF EXAM: 11/01/2023 CLINICAL HISTORY: Pain and dysphasia TECHNIQUE: A single contrast esophagram is performed utilizing barium. A total of 45 seconds of flu oroscopic time was utilized during procedure and 7 images obtained. Total dose area product (DAP) in uGy*m?, mGy*cm? (or similar) not provided. COMPARISON: None FINDINGS: The esophagus shows normal motility and emptying into the stomach. There doesn't appear to be a tapered narrowing at the GE junction and there is a small area of prolapse, diverticulum or hiat al hernia eccentrically to the left retrospectively stable from prior exam. Mild gastroesophageal ref lux.. IMPRESSION: 1. There is mild narrowing of the level of the GE junction distal esophagus with either a small hiata l hernia or diverticulum stable from prior exam. Recommend direct visualization. 2. Mild gastroesophageal reflux.
== END | disposition home or self-care (01) ==
LOC: RADFLMAIN 08:04
PROVIDERS: ATTEND Surgery Plastic and Reconstructive Surgery
DX: K21.9 Gastro-esophageal reflux disease without esophagitis (principal); R13.10 Dysphagia, unspecified; R47.02 Dysphasia
CPT/HCPCS: 74220

== ENCOUNTER → 2023-11-01 | Outpatient (CLI) | payer OTHER ==
[2023-11-01 10:29] LABS: INR 1.1 (<1.2); Partial Thromboplastin Time 26.3 sec (22.0-30.0); Prothrombin Time 11.5 sec (10.0-12.5)
[2023-11-01 15:54] LABS: HCT 39.5 % (37.2-46.3); HGB 12.6 g/dL (12.0-15.0); MCH 29.8 pg (27.0-32.0); MCHC 31.9 g/dL (32.0-37.0); MCV 93.4 FL (80.0-97.0); Mean Platelet Volume 13.7 FL (9.5-12.2); NRBC Per 100 WBC 0 X 10*3/uL (0.00-0.01); Platelet Count 187 X 10*3/uL (140-440); RBC 4.23 X 10*6/uL (4.10-5.20); RDW 15.5 % (11.5-14.5); WBC 6.41 X 10*3/uL (4.50-10.00)
[2023-11-01 16:55] LABS: % Iron Saturation 15.53 (12.00-45.00); Iron 48 UG/DL (50-170); Magnesium 2.1 mg/dL (1.5-2.4); Total Iron Binding Capacity 309 UG/DL (228-460)
[2023-11-01 16:56] LABS: ALT 14 U/L (8-44); AST 11 U/L (13-35); Albumin 4.4 g/dL (3.8-4.9); Albumin/Globulin Ratio 1.63 Ratio (1.60-3.17); Alkaline Phosphatase 75 U/L (41-126); BUN/Creat Ratio 24.33 Ratio (12.00-20.00); Blood Urea Nitrogen 14.6 mg/dL (9.0-27.0); Calcium 9.3 mg/dL (8.7-10.3); Carbon Dioxide 26.4 mmol/L (21.6-31.8); Chloride 105 mmol/L (96-109); Ferritin 75.7 ng/mL (10.0-291.0); Globulin 2.7 g/dL (1.6-3.3); Glucose 87 mg/dL (70-110); Sodium 144 mmol/L (135-145); Total Bilirubin 0.2 mg/dL (0.3-1.2); Total Protein 7.1 g/dL (6.2-8.2)
[2023-11-01 16:57] LABS: Prealbumin 14.1 mg/dL (18.0-42.0)
[2023-11-02 12:42] LABS: Zinc, Serum 87 ug/dL (60-130)
== END | disposition home or self-care (01) ==
LOC: LABPAT 08:55
PROVIDERS: ATTEND Surgery Plastic and Reconstructive Surgery
DX: E66.01 Morbid (severe) obesity due to excess calories (principal)
CPT/HCPCS: 80053; 80061; 82306; 82525; 82607; 82728; 82746; 83036; 83540; 83550; 83735; 83970; 84100; 84134; 84255; 84425; 84443; 84590; 84630; 85027; 85610; 85730

== ENCOUNTER → 2023-11-06 | Outpatient (CLI) | payer OTHER ==
--- NOTE | 2023-11-06 21:26 | US ---
EXAMINATION TYPE: US gallbladder DATE OF EXAM: 11/06/2023 COMPARISON: NONE CLINICAL INDICATION: Female, 43 years old with history of R10.11 RIGHT UPPER QUADRANT PAIN R13.10 DYS PHAGIA; Abdominal pain, nausea, gastric sleeve 08/02 TECHNIQUE: Multiple sonographic images of the right upper quadrant are obtained. FINDINGS: EXAM MEASUREMENTS: Liver Length: 21.1 cm Gallbladder Wall: 0.2 cm CBD: 0.7 cm Right Kidney: 11.1 x 4.2 x 5.6 cm Pancreas: Only portions of the pancreatic neck and some of the body are seen. Head and tail obscured by bowel gas shadowing. Liver: enlarged but otherwise with homogeneous appearance. No focal lesion. Gallbladder: No stones, hydropic change, wall thickening, or surrounding fluid. Evidence for sonographic Morris's sign: no CBD: Mildly dilated. Right Kidney: no evidence of hydronephrosis IMPRESSION: 1. Hepatomegaly at 21.1 cm but otherwise with fairly normal, homogeneous ultrasound appearance. 2. Bile duct mildly dilated at 7 mm. Correlate with alkaline phosphatase and bilirubin levels to excl ude biliary obstruction. 3. No gallstones are seen.
--- NOTE | 2023-11-06 21:27 | NM ---
EXAMINATION TYPE: NM hepatobiliary w EF DATE OF EXAM: 11/06/2023 COMPARISON: Ultrasound same day CLINICAL INDICATION: Female, 43 years old with history of R10.11 RUQ pain; TECHNIQUE: After the intravenous administration of 5.1 mCi Tc 99m Mebrofenin hepatobiliary scintigrap hy is performed. Immediate images post injection. FINDINGS: There is satisfactory initial accumulation of tracer by the liver. The gallbladder is visualized wit hin 22 minutes. The small bowel activity is noted within 32 minutes. At one hour 8 ounces of oral e nsure plus is given to mimic CCK and gallbladder ejection fraction is calculated at 94 %, elevated ab ove the expected range. IMPRESSION: 1. No scintigraphic evidence for acute/chronic cholecystitis or biliary dyskinesia. 2. Increased gallbladder ejection fraction of 94% may be seen with gallbladder hyperkinesis.
== END | disposition home or self-care (01) ==
LOC: RADUSWWP 11:34
PROVIDERS: ATTEND Surgery Plastic and Reconstructive Surgery
DX: R13.10 Dysphagia, unspecified (principal); R16.0 Hepatomegaly, not elsewhere classified
CPT/HCPCS: 76705; 78226; A9537

== ENCOUNTER 2023-11-07 09:03 | Day surgery (SDC) | payer OTHER ==
[2023-11-05 11:08] VITALS: BMI 38.7
[2023-11-07] MEDS: LACTATED RINGERS 1,000 ML IV SCH (10:20)
[2023-11-07 10:29] VITALS: TEMP 97.7
[2023-11-07] MEDS ORDERED: PROPOFOL 10 MG/ML 20 ML VIAL IV ONE (10:58)
[2023-11-07] MEDS ORDERED: LIDOCAINE 1% INJ 10MG/ML (20 ML MDV) ONE (10:58)
--- NOTE | 2023-11-07 11:21 | P.GSHP ---
History of Present Illness H&P Date: 11/07/23 CHIEF COMPLAINT: GERD HISTORY OF PRESENT ILLNESS: The patient is a 43-year-old female who presents reports gastroesophageal reflux disease. Upper endoscopy was offered for further evaluation and management. PAST MEDICAL HISTORY: Please see list. PAST SURGICAL HISTORY: Please see list. MEDICATIONS: Please see list. ALLERGIES: Please see list. SOCIAL HISTORY: No illicit drug use FAMILY HISTORY: No reports of Crohn disease or ulcerative colitis. REVIEW OF ORGAN SYSTEMS: CONSTITUTIONAL: No reports of fevers or chills. GI: Denies any blood in stools or constipation. PHYSICAL EXAM: VITAL SIGNS: Stable GENERAL: Well-developed and pleasant in no acute distress. HEENT: No scleral icterus. Extraocular movements grossly intact. Moist buccal mucosa. NECK: Supple without lymphadenopathy. CHEST: Unlabored respirations. Equal bilateral excursions. CARDIOVASCULAR: Regular rate and rhythm. Distal 2+ pulses. ABDOMEN: Soft, nondistended. MUSCULOSKELETAL: No clubbing, cyanosis, or edema. ASSESSMENT: 1. Gastroesophageal reflux disease PLAN: 1. Recommend proceeding with an upper endoscopy Past Medical History Past Medical History: Asthma, Blood Disorder, GERD/Reflux Additional Past Medical History / Comment(s): obesity, pheochromocytoma Opiod addiction clean since 2019. 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 Patient states abnormal t waves. History of Any Multi-Drug Resistant Organisms: None Reported Past Surgical History: Bariatric Surgery, Section, Heart Catheterization, Tubal Ligation Additional Past Surgical History / Comment(s): D&C, right ovary removed. gastric sleeve 07/23/23, egd Past Anesthesia/Blood Transfusion Reactions: No Reported Reaction Additional Past Anesthesia/Blood Transfusion Reaction / Comment(s): no blood transfusion Smoking Status: Former smoker - Past Family History Father Family Medical History: Cancer Additional Family Medical History / Comment(s): lung Mother Family Medical History: Cancer Additional Family Medical History / Comment(s): uterine Medications and Allergies Home Medications Medication Instructions Recorded Confirmed Type Albuterol Inhaler [Ventolin Hfa 2 puff INHALATION RT-QID PRN 02/11/22 11/07/23 History Inhaler] Buprenorphine HCl/Naloxone HCl 0.5 film SL DAILY 02/11/22 11/07/23 History [Suboxone 8 mg-2 mg Sl Film] Naloxegol Oxalate [Movantik] 25 mg PO DAILY PRN 01/03/23 11/07/23 History Acetaminophen Tab [Tylenol] 1,000 mg PO Q6HR PRN #30 tablet 07/24/23 11/07/23 Rx Omeprazole [PriLOSEC] 40 mg PO DAILY #30 cap 07/24/23 11/07/23 Rx Simethicone 40 mg/0.6 ml Drops 40 mg PO PCHS PRN #30 ml 07/24/23 11/07/23 Rx [Mylicon Drops] bisacodyL [Dulcolax] 5 mg PO DAILY PRN #10 tab 07/24/23 11/07/23 Rx Docusate [Colace] 100 mg PO DAILY 10/24/23 11/07/23 History Ergocalciferol [Vitamin D2 (1250 1 tab PO WEEKLY 11/05/23 11/07/23 History Mcg = 49092 Iu)] Lactulose 10 gm PO ONCE PRN 11/05/23 11/07/23 History Multivitamin [Multivitamins Adult 1 each PO DAILY 11/05/23 11/07/23 History Gummies] Allergies Allergy/AdvReac Type Severity Reaction Status Date / Time shellfish derived Allergy Intermediate Itching Verified 11/07/23 10:07 Pertussis Vaccines Allergy Unknown ARM Verified 11/07/23 10:07 SWELLING aspirin Allergy has had Verified 11/07/23 10:07 itching and hives in past macadamia nut oil Allergy ITCHING IN Verified 11/07/23 10:07 THROAT, HIVES, nitrofurantoin Allergy Rash/Hives Verified 11/07/23 10:07 [From Macrobid] nitrofurantoin Allergy Rash/Hives Verified 11/07/23 10:07 macrocrystalline [From Macrobid] Penicillins Allergy Unknown Verified 11/07/23 10:07 Childhood adhesive tape AdvReac Rash/Hives Verified 11/07/23 10:07 Surgical - Exam Vital Signs Temp Pulse Resp BP Pulse Ox 97.7 F 66 16 136/85 100 11/07/23 10:05 11/07/23 10:05 11/07/23 10:05 11/07/23 10:05 11/07/23 10:05
--- NOTE | 2023-11-07 11:25 | P.PCN ---
Date of Procedure: 11/07/23 Description of Procedure: PREOPERATIVE DIAGNOSIS: Gastroesophageal reflux disease. Epigastric abdominal pain. POSTOPERATIVE DIAGNOSIS: Gastroesophageal reflux disease. Erosive esophagitis, chronic. Diaphragmatic hiatal hernia without obstruction. Chronic superficial gastritis. OPERATION: Esophagogastroduodenoscopy SURGEON: Dori Lopes MD ANESTHESIA: MAC. INDICATIONS: The patient is a 43-year-old female who presents with a history of sleeve gastrectomy with abdominal pain. Benefits and risks of the procedure were described. Informed consent was obtained. DESCRIPTION: The patient was brought into the endoscopy suite and laid in the left lateral decubitus position. An Olympus gastroscope was passed along the posterior oropharynx down to the distal esophagus where the squamocolumnar junction was at 37 centimeters from the incisors remarkable for chronic erosive esophagitis, LA grade A without ulceration. The stomach was entered where she had a 4-cm hiatal hernia. The sleeve reservoir allowed easy retroflexion of the scope to view the lower esophageal valve. Chronic gastritis albeit mild was found along the antrum. The first through third portion of the duodenum was examined and unremarkable. The scope again had easily retroflexed along the antrum. The stomach was desufflated. The patient tolerated the procedure well. FINDINGS: No acute ulceration found along her sleeve. No corkscrewing sleeve gastrectomy. Squamocolumnar junction at 37 cm from the incisors. Diaphragmatic hiatus at 40 cm. [place] with prior history of sleeve gastrectomy allowing easy retroflexion of the gastroscope to view the lower esophageal valve. Hiatal hernia 3 cm LA grade B erosive esophagitis. No active duodenitis. Chronic gastritis. RECOMMENDATIONS: Upper endoscopy as needed. May benefit from antireflux operation. Plan - Discharge Summary Discharge Rx Participant: No New Discharge Prescriptions: Continue bisacodyL [Dulcolax] 5 mg PO DAILY PRN #10 tab PRN Reason: Constipation Simethicone 40 mg/0.6 ml Drops [Mylicon Drops] 40 mg PO PCHS PRN #30 ml PRN Reason: Gas Acetaminophen Tab [Tylenol] 1,000 mg PO Q6HR PRN #30 tablet PRN Reason: Pain Multivitamin [Multivitamins Adult Gummies] 1 each PO DAILY Lactulose 10 gm PO ONCE PRN PRN Reason: Constipation Ergocalciferol [Vitamin D2 (1250 Mcg = 32929 Iu)] 1 tab PO WEEKLY Albuterol Inhaler [Ventolin Hfa Inhaler] 2 puff INHALATION RT-QID PRN PRN Reason: Shortness Of Breath Buprenorphine HCl/Naloxone HCl [Suboxone 8 mg-2 mg Sl Film] 0.5 film SL DAILY Naloxegol Oxalate [Movantik] 25 mg PO DAILY PRN PRN Reason: Constipation Omeprazole [PriLOSEC] 40 mg PO DAILY #30 cap Docusate [Colace] 100 mg PO DAILY Discharge Medication List Albuterol Inhaler [Ventolin Hfa Inhaler] 2 puff INHALATION RT-QID PRN 02/11/22 [History] Buprenorphine HCl/Naloxone HCl [Suboxone 8 mg-2 mg Sl Film] 0.5 film SL DAILY 02/11/22 [History] Naloxegol Oxalate [Movantik] 25 mg PO DAILY PRN 01/03/23 [History] Acetaminophen Tab [Tylenol] 1,000 mg PO Q6HR PRN #30 tablet 07/24/23 [Rx] Omeprazole [PriLOSEC] 40 mg PO DAILY #30 cap 07/24/23 [Rx] Simethicone 40 mg/0.6 ml Drops [Mylicon Drops] 40 mg PO PCHS PRN #30 ml 07/24/23 [Rx] bisacodyL [Dulcolax] 5 mg PO DAILY PRN #10 tab 07/24/23 [Rx] Docusate [Colace] 100 mg PO DAILY 10/24/23 [History] Ergocalciferol [Vitamin D2 (1250 Mcg = 60753 Iu)] 1 tab PO WEEKLY 11/05/23 [History] Lactulose 10 gm PO ONCE PRN 11/05/23 [History] Multivitamin [Multivitamins Adult Gummies] 1 each PO DAILY 11/05/23 [History] Follow up App[facility]ment(s[facility] [facility] [place] [place] [place] - 11/07/23 Patient Instructions/Handouts: GERD (Gastroesophageal Reflux Disease) (DC) Discharge Disposition: HOME SELF-CARE
[2023-11-07 12:07] VITALS: BP 129/75; PULSE 68; RESP 16
== END 2023-11-07 12:06 | disposition home or self-care (01) ==
LOC: ORWHC2ENDO 09:03
PROVIDERS: ATTEND Surgery Plastic and Reconstructive Surgery
DX: K21.00 Gastro-esophageal reflux disease with esophagitis, without bleeding (principal); K22.10 Ulcer of esophagus without bleeding; K29.30 Chronic superficial gastritis without bleeding; K44.9 Diaphragmatic hernia without obstruction or gangrene; J45.909 Unspecified asthma, uncomplicated; E66.9 Obesity, unspecified; Z87.891 Personal history of nicotine dependence; Z88.0 Allergy status to penicillin; Z88.1 Allergy status to other antibiotic agents; Z88.7 Allergy status to serum and vaccine; Z98.84 Bariatric surgery status; Z79.899 Other long term (current) drug therapy; Z79.51 Long term (current) use of inhaled steroids; Z88.8 Allergy status to other drugs, medicaments and biological substances; Z98.51 Tubal ligation status
CPT/HCPCS: 81025; 43235; J2001; J2704

== ENCOUNTER → 2023-11-07 | Outpatient (CLI) | payer OTHER ==
[2023-11-07 14:19] VITALS: BP 137/88; PULSE 71; TEMP 98.1; BMI 40.4
--- NOTE | 2023-11-07 14:46 | P.BASOAP ---
Subjective Progress Note Date: 11/07/23 Went over laba. Vit A and vision is bad. Iron is low. Hyperkenetic gallbladder. Has low protein intake. US reviewed. HIDA gallbladder is having problems. Plan for gallbladder surgery. Objective - Vital Signs Vital signs: Vital Signs Temp 98.1 F 11/07/23 14:08 Pulse 71 11/07/23 14:08 Resp BP 137/88 11/07/23 14:08 Pulse Ox FiO2 Intake & Output 11/06/23 11/07/23 11/07/23 18:59 06:59 18:59 Weight 117.027 kg Assessment/Plan Plan: Date: 11/07/23 Initial Weight: Initial BMI: Current Weight: 117.027 kg Current BMI: 40.4 Type of Surgery: Total Volume in Band: Previous Volume: Volume Removed: Volume Added: Band Size:
== END ==
LOC: BARWHC3 13:49
PROVIDERS: ATTEND Surgery Plastic and Reconstructive Surgery
DX: Z53.9 Procedure and treatment not carried out, unspecified reason (principal)
CPT/HCPCS: 99211

== ENCOUNTER → 2024-01-09 | Outpatient (CLI) | payer OTHER ==
--- NOTE | 2024-01-09 17:04 | P.BASOAP ---
Subjective Progress Note Date: 01/09/24 DATE OF SERVICE: 01/09/24 CHIEF COMPLAINT: Status post sleeve gastrectomy HISTORY OF PRESENT ILLNESS: Geovanna Mata is a 43-year-old female status post sleeve gastrectomy, 07/23/2023. She is 6 months postop. She lost 130 pounds in 8 months. Highest 369 pounds. She is drinking over 1 gallon daily including over 200 oz. She is having bowel movements more regularly. She was constipation with iron. She eating 26 almonds everynight and is pooping daily. She has belly pain of the upper abdomen for over 1 month. She lifts 40 pounds daily and walks 15,000 to 20, 000 daily. At height of 5 feet 8 inches, her ideal body weight is 163 pounds. Highest weight 369 pounds, body mass index 57.9. She comes in 238 pounds from 258 pounds over 3 months ago. She has lost 20 pounds in 3 months. Lifetime weight loss 131 pounds. Her body mass index is 37.3. She is 80 pounds overweight. PAST MEDICAL HISTORY: 1. Morbid obesity due to excess calories 2. Body mass index of 46.4 3. Osteoarthritis of the knees. 4. Osteoarthritis of the lower back. 5. Hypertensive heart disease 6. Gastroesophageal reflux disease 7. Hyperlipidemia 8. Depressive disorder 9. Congestive heart failure 10. Posttraumatic stress disorder 11. Generalized anxiety disorder 12. Chronic constipation 13. Opiate addiction 14. Pheochromocytoma PAST SURGICAL HISTORY: 1. Right oophorectomy 2. Tubal ligation 3. Heart catheterization 4. section 5. Status post sleeve gastrectomy HOME MEDICATIONS: Home Medications Medication Instructions Recorded Confirmed Albuterol Inhaler [Ventolin Hfa 2 puff INHALATION RT-QID PRN 02/11/22 01/31/24 Inhaler] Buprenorphine HCl/Naloxone HCl 0.5 film SL DAILY 02/11/22 01/31/24 [Suboxone 8 mg-2 mg Sl Film] Naloxegol Oxalate [Movantik] 25 mg PO DAILY PRN 01/03/23 01/31/24 Ergocalciferol [Vitamin D2 (1250 1 tab PO TU 11/05/23 01/31/24 Mcg = 57401 Iu)] Lactulose 10 gm PO ONCE PRN 11/05/23 01/31/24 Multivitamin [Multivitamins Adult 1 each PO DAILY 11/05/23 01/31/24 Gummies] Biotin (Unknown Dose) 1 tab PO DAILY 01/22/24 01/31/24 Folic Acid (Unknown Dose) 1 tab PO DAILY 01/22/24 01/31/24 Vitamin A Palmitate [Vitamin A-25 7,500 mcg PO DAILY 01/22/24 01/31/24 (25,000 Units = 7500 MCG)] Vitamin C (Unknown Dose) 1 tab PO DAILY 01/22/24 01/31/24 Previous Rx's Medication Instructions Recorded Omeprazole [PriLOSEC] 40 mg PO DAILY #30 cap 07/24/23 Acetaminophen Tab [Tylenol Tab] 1,000 mg PO Q6HR PRN #30 tablet 01/25/24 Simethicone 40 mg/0.6 ml Drops 100 mg PO Q6HR PRN #30 ml 01/25/24 [Mylicon Drops] ALLERGIES: Allergies Allergy/AdvReac Type Severity Reaction Status Date / Time shellfish derived Allergy Intermediate Itching Verified 01/25/24 10:11 Pertussis Vaccines Allergy Unknown ARM Verified 01/25/24 10:11 SWELLING aspirin Allergy has had Verified 01/25/24 10:11 itching and hives in past macadamia nut oil Allergy ITCHING IN Verified 01/25/24 10:11 THROAT, HIVES, nitrofurantoin Allergy Rash/Hives Verified 01/25/24 10:11 [From Macrobid] nitrofurantoin Allergy Rash/Hives Verified 01/25/24 10:11 macrocrystalline [From Macrobid] Penicillins Allergy Unknown Verified 01/25/24 10:11 Childhood adhesive tape AdvReac Rash/Hives Verified 01/25/24 10:11 SOCIAL HISTORY: Past tobacco abuse, heroin, marijuana, opiate addiction FAMILY HISTORY: No family history of ulcerative colitis disease or Crohn's disease. Family history of morbid obesity. No lupus in the family. No reports of stomach or esophageal cancer. REVIEW OF ORGAN SYSTEMS: CONSTITUTIONAL: At height of 5 feet 8 inches, her ideal body weight is 163 pounds. She comes in 304 pounds. Her body mass index is 46.4 She is 141 pounds overweight. HEENT: Denies any active troubles with vision or hearing. ENDOCRINE: Denies diabetes. Denies hypothyroidism. CARDIOVASCULAR: Past reports of palpitations RESPIRATORY: Has daytime somnolence. GASTROINTESTINAL: Denies any bright red blood per rectum. Has gastroesophageal reflux disease. MUSCULOSKELETAL: Has lower back pain and joint pain. Has osteoarthritis of the knees. NEURO: No headaches. No seizure disorders. PSYCH: Has depression. No suicidal ideation. RHEUMATOLOGIC: No lupus. No rheumatoid arthritis. HEMATOLOGIC: Denies any abnormal bleeding or bruising. No personal history of DVTs. SKIN: Has rash. No skin cancer. PHYSICAL EXAM: VITAL SIGNS: Height 5 foot 7 inches, weight 238 pounds. BMI 37.3 Vital Signs Temp 98.5 F 01/09/24 02:00 Pulse 65 01/09/24 02:00 Resp BP 145/97 01/09/24 02:00 Pulse Ox FiO2 GENERAL: Well-developed in no acute distress. HEENT: No scleral icterus. Extraocular movements grossly intact. Hears conversational speech. No nasal drainage. NECK: Supple without lymphadenopathy. CHEST: Nonlabored respirations with equal bilateral excursions. CARDIOVASCULAR: Regular rate and regular rhythm. Distal 2+ pulses. ABDOMEN: Obese, soft, nontender, nondistended. No abdominal wall hernia. MUSCULOSKELETAL: No clubbing, cyanosis. NEURO: No focal or lateralizing signs. Cranial nerves 2 through 12 grossly within normal limits. PSYCH: Appropriate affect. Alert and oriented to person, place and time. SKIN: Good skin turgor. Well perfused. LABS: Reviewed. Iron low, iron deficiency. Selenium elevated. Vitamin A low. Prealbumin low. EGD FINDINGS: No acute ulceration found along her sleeve. No corkscrewing sleeve gastrectomy. Squamocolumnar junction at 37 cm from the incisors. Diaphragmatic hiatus at 40 cm. [place] with prior history of sleeve gastrectomy allowing easy retroflexion of the gastroscope to view the lower esophageal valve. Hiatal hernia 3 cm LA grade B erosive esophagitis. No active duodenitis. Chronic gastritis. STUDIES: Ultrasound of the gallbladder independently reviewed demonstrating no large gallstones. This is my independent interpretation. HIDA scan independent reviewed demonstrates hyperkinetic gallbladder 94% REPORTS: Reviewed demonstrates hepatomegaly. Bile ducts dilated. ASSESSMENT: 1. Morbid obesity due to excess calories 2. Body mass index of 56.8 to 37.3 3. Osteoarthritis of the knees. 4. Osteoarthritis of the lower back. 5. Hypertensive heart disease 6. Gastroesophageal reflux disease 7. Hyperlipidemia 8. Depressive disorder 9. Congestive heart failure 10. Posttraumatic stress disorder 11. Generalized anxiety disorder 12. Chronic constipation 13. Opiate addiction 14. Pheochromocytoma 15. Status post sleeve gastrectomy 16. Iron deficiency low 17. Selenium elevated 18. Vitamin A deficiency PLAN: 1. She has moderate severe right upper quadrant epigastric abdominal pain exacerbated with eating fatty food. Recommend cholecystectomy. 2. Low-fat diet in the interim. 3. Patient is elevated risk for complications due to history of pheochromocytoma. Assessment/Plan Plan: Date: Initial Weight: Initial BMI: Current Weight: Current BMI: Type of Surgery: Total Volume in Band: Previous Volume: Volume Removed: Volume Added: Band Size:
[2024-01-09 17:39] VITALS: BMI 37.3
[2024-01-10 15:59] VITALS: BP 145/97; PULSE 65; TEMP 98.5
== END ==
LOC: BARWHC3 16:23
PROVIDERS: ATTEND Surgery Plastic and Reconstructive Surgery
DX: E66.01 Morbid (severe) obesity due to excess calories (principal); M17.0 Bilateral primary osteoarthritis of knee; M47.816 Spondylosis without myelopathy or radiculopathy, lumbar region; K21.9 Gastro-esophageal reflux disease without esophagitis; E78.5 Hyperlipidemia, unspecified; F32.A Depression, unspecified; I11.0 Hypertensive heart disease with heart failure; I50.9 Heart failure, unspecified; F43.10 Post-traumatic stress disorder, unspecified; F41.1 Generalized anxiety disorder; K59.09 Other constipation; F11.20 Opioid dependence, uncomplicated; D35.00 Benign neoplasm of unspecified adrenal gland; D50.9 Iron deficiency anemia, unspecified; R74.8 Abnormal levels of other serum enzymes; E50.9 Vitamin A deficiency, unspecified; F17.200 Nicotine dependence, unspecified, uncomplicated; Z71.3 Dietary counseling and surveillance; Z98.84 Bariatric surgery status; Z90.3 Acquired absence of stomach [part of]; Z91.013 Allergy to seafood; Z88.6 Allergy status to analgesic agent; Z88.0 Allergy status to penicillin; Z91.048 Other nonmedicinal substance allergy status; Z88.7 Allergy status to serum and vaccine; Z91.018 Allergy to other foods; Z68.37 Body mass index [BMI] 37.0-37.9, adult; Z79.899 Other long term (current) drug therapy
CPT/HCPCS: 97803; G0463; 99211

== ENCOUNTER → 2024-01-19 | Outpatient (CLI) | payer OTHER ==
[2024-01-19 12:17] LABS: INR 1.1 (<1.2); Partial Thromboplastin Time 26.2 sec (22.0-30.0); Prothrombin Time 11.8 sec (10.0-12.5)
[2024-01-19 22:41] LABS: HCT 36.5 % (37.2-46.3); HGB 11.3 g/dL (12.0-15.0); MCH 29.3 pg (27.0-32.0); MCV 94.6 FL (80.0-97.0); Mean Platelet Volume 11.9 FL (9.5-12.2); NRBC Per 100 WBC 0 X 10*3/uL (0.00-0.01); Platelet Count 256 X 10*3/uL (140-440); RBC 3.86 X 10*6/uL (4.10-5.20); RDW 15.4 % (11.5-14.5); WBC 7.97 X 10*3/uL (4.50-10.00)
[2024-01-19 22:56] LABS: Prealbumin 13.1 mg/dL (18.0-42.0)
[2024-01-19 23:13] LABS: Chol/HDL Ratio 3.79 Ratio
[2024-01-19 23:14] LABS: % Iron Saturation 19.34 (12.00-45.00); ALT 13 U/L (8-44); AST 17 U/L (13-35); Albumin 4.2 g/dL (3.8-4.9); Albumin/Globulin Ratio 1.75 Ratio (1.60-3.17); Alkaline Phosphatase 71 U/L (41-126); Blood Urea Nitrogen 14.2 mg/dL (9.0-27.0); Calcium 8.8 mg/dL (8.7-10.3); Carbon Dioxide 26.3 mmol/L (21.6-31.8); Chloride 98 mmol/L (96-109); Ferritin 32.6 ng/mL (10.0-291.0); Globulin 2.4 g/dL (1.6-3.3); Glucose 97 mg/dL (70-110); Iron 59 UG/DL (50-170); LDL Cholesterol,Calculated 99.2 mg/dL (0.0-131.0); Phosphorus 3.7 mg/dL (2.4-5.1); Potassium 3.9 mmol/L (3.5-5.5); Sodium 142 mmol/L (135-145); Total Bilirubin <0.2 mg/dL (0.3-1.2); Total Iron Binding Capacity 305 UG/DL (228-460); Total Protein 6.6 g/dL (6.2-8.2)
== END | disposition home or self-care (01) ==
LOC: LABWHC1 11:29
PROVIDERS: ATTEND Surgery Plastic and Reconstructive Surgery
DX: E66.01 Morbid (severe) obesity due to excess calories (principal); D50.8 Other iron deficiency anemias; K91.2 Postsurgical malabsorption, not elsewhere classified; E44.0 Moderate protein-calorie malnutrition; E44.1 Mild protein-calorie malnutrition; E45 Retarded development following protein-calorie malnutrition; E55.9 Vitamin D deficiency, unspecified; K74.1 Hepatic sclerosis; N19 Unspecified kidney failure; T56.894A Toxic effect of other metals, undetermined, initial encounter; K50.90 Crohn's disease, unspecified, without complications
CPT/HCPCS: 36415; 80053; 80061; 82306; 82525; 82607; 82728; 82746; 83036; 83540; 83550; 83735; 83970; 84100; 84134; 84255; 84425; 84443; 84590; 84630; 85027; 85610; 85730

== ENCOUNTER → 2024-01-25 | Day surgery (SDC) | payer OTHER ==
[2024-01-22 10:17] VITALS: BMI 37.3
[~2024-01-25] MED LIST changes: -ACETAMINOPHEN TAB 500 MG TAB PO PRN; -ALVIMOPAN 12 MG CAPSULE PO PRN; -CHLORHEXIDINE GLUCONATE 15 ML CUP MUCOUS MEM PRN; -DEXAMETHASONE SOD PHOSPHATE 4 MG/ML 1 ML VIAL IV ONE; -ENOXAPARIN 40 MG/0.4 ML SYRINGE SQ PRN; +GLYCOPYRROLATE 0.2 MG/ML 2 ML VIAL ONE; +INDOCYANINE GREEN 25 MG VIAL IV STA; +KETAMINE HCL IN 0.9 % NACL 50 MG/5 ML SYRINGE ONE; -LIDOCAINE 1% (10MG/ML) FOR IV START INTRADERMA PRN; +LIDOCAINE 1% INJ 10MG/ML (20 ML MDV) ONE; +MIDAZOLAM 2 MG/2 ML VIAL ONE; +NEOSTIGMINE 1 MG/ML 10 ML VIAL ONE; -ONDANSETRON 4 MG/2 ML VIAL IVP ONE; -ONDANSETRON 4 MG/2 ML VIAL IVP PRN; -PANTOPRAZOLE 40 MG/10 ML VIAL IVP PRN; +PROPOFOL 10 MG/ML 20 ML VIAL IV ONE; +ROCURONIUM 10 MG/ML (5 ML VIAL) IV ONE; -SCOPOLAMINE 1 MG/72 HR PATCH TRANSDERM STA; +SUCCINYLCHOLINE CHLORIDE 200 MG/10 ML VIAL IV ONE; -ceFAZolin 3 GM in SODIUM CHLORIDE 0.9% 100 ML IVPB PRN; +fentaNYL (PF) 50 MCG/ML 2 ML AMP ONE
--- NOTE | 2024-01-25 06:44 | P.GSHP ---
History of Present Illness H&P Date: 01/25/24 CHIEF COMPLAINT: Cholecystitis HISTORY OF PRESENT ILLNESS: The patient is a 43-year-old female who presents with history of epigastric including right upper quadrant abdominal pain. She underwent diagnostic studies for her gallbladder. Separately her clinical picture was consistent with cholecystitis. Now she presents for surgical intervention. PAST MEDICAL HISTORY: Please see list PAST SURGICAL HISTORY: Please see list MEDICATIONS: Please see list ALLERGIES: Please see list SOCIAL HISTORY: Please see list FAMILY HISTORY: Please see list REVIEW OF ORGAN SYSTEMS: CONSTITUTIONAL: No reports of fevers or chills. HEENT: Denies any troubles with the vision or hearing. ENDOCRINE: No reports of hypothyroidism. No diabetes. RESPIRATORY: No recent pneumonias. CARDIOVASCULAR: Denies chest pain or palpitations GI: No blood in stools or constipation. MUSCULOSKELETAL: Has occasional joint pain including back pain. NEURO: No seizure disorders or headaches. No recent stroke. PSYCH: No depression or suicidal ideation. GENITOURINARY: No active blood in urine. No urinary hesitancy. HEMATOLOGIC: No personal or family history of DVTs or pulmonary emboli. SKIN: No skin cancer. PHYSICAL EXAM: VITAL SIGNS: Afebrile vital signs stable GENERAL: Well-developed pleasant in no acute distress. HEENT: No scleral icterus. Extraocular movements grossly intact. Moist buccal mucosa. NECK: Supple without lymphadenopathy. CHEST: Unlabored respirations. Equal bilateral excursions. CARDIOVASCULAR: Regular rate regular rhythm rhythm. Distal 2+ pulses. ABDOMEN: Soft, nondistended. Tender along the epigastrium and right upper quadrant. MUSCULOSKELETAL: No clubbing, cyanosis, or edema. NEURO: Cranial nerves II to XII within normal limits. No focal or lateralizing signs. PSYCH: Alert and oriented to person, place and time. SKIN: Well-perfused good skin turgor. ASSESSMENT: 1. Epigastric and right upper quadrant abdominal pain 2. Chronic cholecystitis 3. Symptomatic gallstones. PLAN: 1. Will need a robotic cholecystectomy possible open. Benefits and risks were described. 2. Heparin for DVT prophylaxis 5000 units. 3. Antibiotic prophylaxis. 4. CBC and CMP on day of procedure 5. Non-narcotic pre and post op pain management reviewed. 6. Indocyanine green for biliary imaging. Past Medical History Past Medical History: Hypertension Additional Past Medical History / Comment(s): Pheochromocytoma. Hx opiod addiction, clean since January 2022. Overdosed on Heroin 01/06/20. Patient states abnormal T waves. States lost 138 lbs, problems with vision and hair falling out since Bariatric surgery. History of Any Multi-Drug Resistant Organisms: None Reported Past Surgical History: Bariatric Surgery, Section, Heart Catheterization, Tubal Ligation Additional Past Surgical History / Comment(s): D&C, right ovary removed, gastric sleeve 07/23/23, EGD. Past Anesthesia/Blood Transfusion Reactions: No Reported Reaction Smoking Status: Former smoker - Past Family History Father Family Medical History: Cancer Additional Family Medical History / Comment(s): Lung cancer. Mother Family Medical History: Cancer Additional Family Medical History / Comment(s): Uterine cancer. Medications and Allergies Home Medications Medication Instructions Recorded Confirmed Type Albuterol Inhaler [Ventolin Hfa 2 puff INHALATION RT-QID PRN 02/11/22 01/22/24 History Inhaler] Buprenorphine HCl/Naloxone HCl 0.5 film SL DAILY 02/11/22 01/22/24 History [Suboxone 8 mg-2 mg Sl Film] Naloxegol Oxalate [Movantik] 25 mg PO DAILY PRN 01/03/23 01/22/24 History Omeprazole [PriLOSEC] 40 mg PO DAILY #30 cap 07/24/23 01/22/24 Rx Ergocalciferol [Vitamin D2 (1250 1 tab PO TU 11/05/23 01/22/24 History Mcg = 21174 Iu)] Lactulose 10 gm PO ONCE PRN 11/05/23 01/22/24 History Multivitamin [Multivitamins Adult 1 each PO DAILY 11/05/23 01/22/24 History Gummies] Biotin (Unknown Dose) 1 tab PO DAILY 01/22/24 01/22/24 History Folic Acid (Unknown Dose) 1 tab PO DAILY 01/22/24 01/22/24 History Vitamin A Palmitate [Vitamin A-25 7,500 mcg PO DAILY 01/22/24 01/22/24 History (25,000 Units = 7500 MCG)] Vitamin C (Unknown Dose) 1 tab PO DAILY 01/22/24 01/22/24 History Allergies Allergy/AdvReac Type Severity Reaction Status Date / Time shellfish derived Allergy Intermediate Itching Verified 01/22/24 09:18 Pertussis Vaccines Allergy Unknown ARM Verified 01/22/24 09:18 SWELLING aspirin Allergy has had Verified 01/22/24 09:18 itching and hives in past macadamia nut oil Allergy ITCHING IN Verified 01/22/24 09:18 THROAT, HIVES, nitrofurantoin Allergy Rash/Hives Verified 01/22/24 09:18 [From Macrobid] nitrofurantoin Allergy Rash/Hives Verified 01/22/24 09:18 macrocrystalline [From Macrobid] Penicillins Allergy Unknown Verified 01/22/24 09:18 Childhood adhesive tape AdvReac Rash/Hives Verified 01/22/24 09:18
[2024-01-25] MEDS: LACTATED RINGERS 1,000 ML IV SCH (10:15)
[2024-01-25 10:31] VITALS: TEMP 97.6
[2024-01-25] MEDS: DEXAMETHASONE SOD PHOSPHATE 4 MG/ML 1 ML VIAL IV ONE (10:32)
[2024-01-25] MEDS: ACETAMINOPHEN TAB 500 MG TAB PO STA (10:32)
[2024-01-25] MEDS: ONDANSETRON 4 MG/2 ML VIAL IVP ONE (10:32)
[2024-01-25] MEDS: SCOPOLAMINE 1 MG/72 HR PATCH TRANSDERM STA (10:33)
[2024-01-25] MEDS: HEPARIN SODIUM,PORCINE 5,000 UNIT/ML 1 ML VIAL SQ PRN (10:33)
[2024-01-25] MEDS: LIDOCAINE 1%-EPI 1:100,000 20 ML VIAL SQ ONE (11:44)
[2024-01-25] MEDS: LACTATED RINGERS 1,000 ML IV ONE (12:28)
[2024-01-25 13:24] VITALS: RESP 16
[2024-01-25] MEDS: HYDROmorphone 0.5 MG/0.5 ML SYRINGE IVP PRN (13:28)
--- NOTE | 2024-01-25 13:44 | P.OP ---
Date of Procedure: 01/25/24 Description of Procedure: SURGEON: MARY KELLER MD PREOPERATIVE DIAGNOSES: 1. Symptomatic gallstones 2. Morbid obesity due to excess calories, BMI 37.3 3. Status post sleeve gastrectomy 4. Gastroesophageal reflux disease 5. Asthma 6. Hypertension 7. History of opiate addiction 8. Generalized anxiety disorder 9. Depressive disorder 10. Posttraumatic stress disorder 11. History of pheochromocytoma POSTOPERATIVE DIAGNOSES: 1. Symptomatic gallstones 2. Morbid obesity due to excess calories, BMI 37.3 3. Status post sleeve gastrectomy 4. Gastroesophageal reflux disease 5. Asthma 6. Hypertension 7. History of opiate addiction 8. Generalized anxiety disorder 9. Depressive disorder 10. Posttraumatic stress disorder 11. History of pheochromocytoma 12. Pericholecystic adhesions OPERATION: 1. Robotic-assisted da Kimberly Xi laparoscopic cholecystectomy, multiport with FIREFLY ESTIMATED BLOOD LOSS: 5 mL. SPECIMENS REMOVED: Gallbladder. COMPLICATIONS: None. OPERATIVE FINDINGS: 1. Hepatomegaly 2. Pericholecystic adhesions requiring lysis of adhesions INDICATIONS: The patient is a 43-year-old female who presents with symptomatic gallstones. Robotic assisted laparoscopic approach was described. Benefits and risks of the procedure including but not limited to bleeding, infection, injury to the biliary tree was described. Informed consent was obtained. DESCRIPTION OF PROCEDURE: Patient was brought to the operating room, placed in supine position. After general induction, the abdomen had been prepped and draped in standard sterile fashion. The robotic da Kimberly XI system was primed. After a timeout protocol was performed, the patient had been prepped and draped in standard sterile fashion. The patient was injected with indocyanine green. A 5 mm 0 degrees laparoscopic trocar entry was performed along the left upper quadrant. The abdomen insufflated to 15 mmHg pressure which was tolerated well. Diagnostic laparoscopy demonstrated no injury to bowel viscera or mesentery. The liver surface was unremarkable. Next, two 8 mm robotic ports were placed along the right upper abdomen. The camera 8-mm port was maintained along the epigastrium. Another 8 mm port was placed along the left upper abdominal wall after exchanging the 5 mm port. Please note that the ports were placed at least 10 to 15 cm away from the target anatomy of the gallbladder. The robot was docked along the left lateral abdomen. The patient was repositioned in reverse Trendelenburg position. Using a grasper for arm 3, a grasper for arm 4, including hook cautery for arm 1, the robotic system was docked and primed as described. Instruments were interchanged by the press assistant including hook cautery, Bovie cautery and clip appliers. I had sat at the console. Next attention was brought to the infundibulum and cystic structures. Adhesions about the gallbladder was identified and lysed using hook cautery. Dome down technique was performed starting from the fundus towards the infundibulum with dissection of the gallbladder from the hepatic fossa. The infundibulum and cystic duct were dissected free from surrounding tissues. The cystic duct was isolated. FIREFLY was used to identify the cystic artery and cystic structures. A critical view of safety was obtained. Large PLASTIC clips were used throughout the entire case. Using a clip market maker, 2 clips were placed at the junction of the infundibulum and cystic duct. The cystic duct was divided between clips. Next, the cystic artery was similarly clipped and cauterized. Electro-Bovie cautery was used to remove the gallbladder from the hepatic fossa. Hemostasis was checked and found to be adequate. The robot was undocked. I re-scrubbed into the case. Using a 10 mm Endo Catch bag via the left upper quadrant incision, the specimen was removed from the abdominal cavity. All pneumoperitoneum instruments were evacuated from the abdominal cavity. The incisions were reapproximated using 4-0 Monocryl in an interrupted subcuticular fashion. Fascial defects were less than 8 mm in size. Please note along the trocar sites, local anesthetic was placed as a field block prior to insertion of all instruments. Liquid glue was applied to the skin. At the end of the procedure needle, sponge, and instrument count had been verified correct by the surgical clinical reviewer. The patient was transferred to postanesthesia care unit in stable condition. Intraoperative films were shared with the patient's family. Plan - Discharge Summary Discharge Rx Participant: Yes New Discharge Prescriptions: New Simethicone 40 mg/0.6 ml Drops [Mylicon Drops] 100 mg PO Q6HR PRN #30 ml PRN Reason: Abdominal Distention Acetaminophen Tab [Tylenol Tab] 1,000 mg PO Q6HR PRN #30 tablet PRN Reason: Pain Continue Multivitamin [Multivitamins Adult Gummies] 1 each PO DAILY Lactulose 10 gm PO ONCE PRN PRN Reason: Constipation Ergocalciferol [Vitamin D2 (1250 Mcg = 48472 Iu)] 1 tab PO TU Biotin (Unknown Dose) 1 tab PO DAILY Vitamin C (Unknown Dose) 1 tab PO DAILY Albuterol Inhaler [Ventolin Hfa Inhaler] 2 puff INHALATION RT-QID PRN PRN Reason: Shortness Of Breath Buprenorphine HCl/Naloxone HCl [Suboxone 8 mg-2 mg Sl Film] 0.5 film SL DAILY Naloxegol Oxalate [Movantik] 25 mg PO DAILY PRN PRN Reason: Constipation Omeprazole [PriLOSEC] 40 mg PO DAILY #30 cap Vitamin A Palmitate [Vitamin A-25 (25,000 Units = 7500 MCG)] 7,500 mcg PO DAILY Folic Acid (Unknown Dose) 1 tab PO DAILY Discharge Medication List Albuterol Inhaler [Ventolin Hfa Inhaler] 2 puff INHALATION RT-QID PRN 02/11/22 [History] Buprenorphine HCl/Naloxone HCl [Suboxone 8 mg-2 mg Sl Film] 0.5 film SL DAILY 02/11/22 [History] Naloxegol Oxalate [Movantik] 25 mg PO DAILY PRN 01/03/23 [History] Omeprazole [PriLOSEC] 40 mg PO DAILY #30 cap 07/24/23 [Rx] Ergocalciferol [Vitamin D2 (1250 Mcg = 29487 Iu)] 1 tab PO TU 11/05/23 [History] Lactulose 10 gm PO ONCE PRN 11/05/23 [History] Multivitamin [Multivitamins Adult Gummies] 1 each PO DAILY 11/05/23 [History] Biotin (Unknown Dose) 1 tab PO DAILY 01/22/24 [History] Folic Acid (Unknown Dose) 1 tab PO DAILY 01/22/24 [History] Vitamin A Palmitate [Vitamin A-25 (25,000 Units = 7500 MCG)] 7,500 mcg PO DAILY 01/22/24 [History] Vitamin C (Unknown Dose) 1 tab PO DAILY 01/22/24 [History] Acetaminophen Tab [Tylenol Tab] 1,000 mg PO Q6HR PRN #30 tablet 01/25/24 [Rx] Simethicone 40 mg/0.6 ml Drops [Mylicon Drops] 100 mg PO Q6HR PRN #30 ml 01/25/24 [Rx] Follow up Appointment(s)/Ref[place] [facility] [place] [place] - 01/30/24 3:00 pm Patient Instructions/Handouts: *Surgery [facility] - Scopalamine Patch Instructions, Low Fat Diet (DC), Laparoscopic Cholecystectomy (DC) Activity/Diet/Wound Care/Special Instructions: Recommend low-fat diet for the next 2 days. No lifting over 10 pounds in 2 weeks until February 07January shower. No bath tub soaks for two weeks until February 07 Use Tylenol, simethicone and ibuprofen or Aleve scheduled for the next 24-48 hours for best pain relief. Use ice along incisions for today to prevent swelling. Discharge Disposition: HOME SELF-CARE
[2024-01-25 15:18] VITALS: BP 108/71; PULSE 66
== END | disposition home or self-care (01) ==
LOC: OR 09:50
PROVIDERS: ATTEND Surgery Plastic and Reconstructive Surgery
DX: K81.1 Chronic cholecystitis (principal); E66.01 Morbid (severe) obesity due to excess calories; F32.A Depression, unspecified; F41.1 Generalized anxiety disorder; F43.10 Post-traumatic stress disorder, unspecified; I10 Essential (primary) hypertension; J45.909 Unspecified asthma, uncomplicated; K21.9 Gastro-esophageal reflux disease without esophagitis; Z68.37 Body mass index [BMI] 37.0-37.9, adult; Z86.018 Personal history of other benign neoplasm; Z87.891 Personal history of nicotine dependence; Z88.0 Allergy status to penicillin; Z88.1 Allergy status to other antibiotic agents; Z88.7 Allergy status to serum and vaccine; Z90.721 Acquired absence of ovaries, unilateral; Z98.51 Tubal ligation status; Z98.84 Bariatric surgery status; Z91.013 Allergy to seafood; Z79.899 Other long term (current) drug therapy
CPT/HCPCS: 47562; S2900; 81025; 88304

== ENCOUNTER → 2024-01-30 | Outpatient (CLI) | payer OTHER ==
[2024-01-30 17:15] VITALS: BP 126/84; PULSE 91; RESP 16; TEMP 98; BMI 36.6
--- NOTE | 2024-01-30 17:40 | P.PN ---
Subjective Progress Note Date: 01/30/24 No infection. Feeling great. Still losing weight. She reports losing hair. She has thinning of the hair. She eats 90 to 110 grams of protein. She has high selenium levels. She has new growth of hair. Told to take vitamin A, B complex, iron. Objective - Vital Signs Vital signs: Vital Signs Temp 98 F 01/30/24 16:48 Pulse 91 01/30/24 16:48 Resp 16 01/30/24 16:48 BP 126/84 01/30/24 16:48 Pulse Ox FiO2 Intake & Output 01/29/24 01/30/24 01/30/24 18:59 06:59 18:59 Weight 106.141 kg
== END ==
LOC: BARWHC3 16:34
PROVIDERS: ATTEND Surgery Plastic and Reconstructive Surgery
DX: E66.01 Morbid (severe) obesity due to excess calories (principal); Z68.36 Body mass index [BMI] 36.0-36.9, adult; Z88.8 Allergy status to other drugs, medicaments and biological substances; Z88.6 Allergy status to analgesic agent; Z91.013 Allergy to seafood; Z91.018 Allergy to other foods; Z88.7 Allergy status to serum and vaccine; Z87.891 Personal history of nicotine dependence; Z98.84 Bariatric surgery status; Z88.0 Allergy status to penicillin; Z91.048 Other nonmedicinal substance allergy status
CPT/HCPCS: 99211

== ENCOUNTER → 2024-07-23 | Outpatient (CLI) | payer OTHER ==
[2024-07-23 15:16] VITALS: BP 137/93; PULSE 91; RESP 16; TEMP 98.1; BMI 36.8
--- NOTE | 2024-07-23 15:35 | P.BASOAP ---
Subjective Progress Note Date: 07/23/24 She has severe reflux. She is on Omeprazole. Get esophagram. Worsening reflux since 4 months after surgery. It is getting worse. Laying down does not help. She has smoking aspiration. Add carafate. Hiatal hernia repair reviewed prior to gastric bypass. She is taking carafate and omeprazole without relief and making it worse. EGD advised for risk of barretts. Pannicultis see derm. 4 scripts sent. Objective - Vital Signs Vital signs: Vital Signs Temp 98.1 F 07/23/24 15:04 Pulse 91 07/23/24 15:04 Resp 16 07/23/24 15:04 BP 137/93 07/23/24 15:04 Pulse Ox FiO2 Intake & Output 07/22/24 07/23/24 07/23/24 18:59 06:59 18:59 Weight 106.594 kg Assessment/Plan Plan: Date: 07/23/24 Initial Weight: 106.141 kg Initial BMI: 36.6 Current Weight: 106.594 kg Current BMI: 36.8 Type of Surgery: Total Volume in Band: Previous Volume: Volume Removed: Volume Added: Band Size:
== END ==
LOC: BARWHC3 13:51
PROVIDERS: ATTEND Surgery Plastic and Reconstructive Surgery
DX: E66.01 Morbid (severe) obesity due to excess calories (principal); F17.210 Nicotine dependence, cigarettes, uncomplicated; Z68.36 Body mass index [BMI] 36.0-36.9, adult; Z88.0 Allergy status to penicillin; Z91.040 Latex allergy status; Z88.6 Allergy status to analgesic agent; Z88.7 Allergy status to serum and vaccine; Z91.09 Other allergy status, other than to drugs and biological substances; Z91.013 Allergy to seafood; Z88.8 Allergy status to other drugs, medicaments and biological substances
CPT/HCPCS: 99211

== ENCOUNTER → 2024-08-15 | Outpatient (CLI) | payer OTHER ==
--- NOTE | 2024-08-15 10:30 | FL ---
EXAMINATION TYPE: FL barium swallow DATE OF EXAM: 08/15/2024 9:06 AM COMPARISON: . Chest radiograph from same day. 11/01/2023 CLINICAL INDICATION:Female, 44 years old with history of DYSPHAGIA, UNSPECIFIED; [facility], TECHNIQUE: The procedure was explained and patient history elicited. All patient questions were ans wered prior to start of procedure. Multiple spot fluoroscopic images of the esophagus were obtained a fter the oral ingestion of effervescent crystals and liquid barium as the contrast agent. Fluoroscopic time:41 sec Fluoroscopic images:0 Radiographs taken: 100 DAP: NOT REPORTED [id number] FINDINGS: The esophagus demonstrates normal primary and secondary peristalsis. Tertiary contractions are seen w ith delayed emptying of the esophageal contents. Small hiatal hernia present most pronounced from pat ient was lying prone. The esophageal mucosa is smooth without evidence of focal stricture, ulceration , or abnormal outpouching. No gastroesophageal reflux disease was identified IMPRESSION: Esophageal dysmotility worse when lying prone. Small hiatal hernia worse when lying prone. [facility], , 08/15/2024 10:27 AM
== END | disposition home or self-care (01) ==
LOC: RADFLMAIN 08:18
PROVIDERS: ATTEND Surgery Plastic and Reconstructive Surgery
DX: K22.4 Dyskinesia of esophagus (principal); R13.10 Dysphagia, unspecified; K44.9 Diaphragmatic hernia without obstruction or gangrene
CPT/HCPCS: 74220

== ENCOUNTER 2024-08-18 07:22 | Day surgery (SDC) | payer OTHER ==
[2024-08-13 12:04] VITALS: BMI 35.0
[2024-08-18] MEDS: IV FLUID CONTINUATION 1,000 ML IV ONE (07:55)
[2024-08-18] MEDS: LACTATED RINGERS 1,000 ML IV SCH (07:58)
[2024-08-18 08:00] LABS: Glucose,Whole Blood 85 mg/dL (70-110)
[2024-08-18 08:04] VITALS: TEMP 97.8
[2024-08-18] MEDS ORDERED: PROPOFOL 10 MG/ML 20 ML VIAL IV ONE (08:04)
[2024-08-18] MEDS ORDERED: LIDOCAINE 1% INJ 10MG/ML (20 ML MDV) ONE (08:04)
--- NOTE | 2024-08-18 08:08 | P.GSHP ---
History of Present Illness H&P Date: 08/18/24 CHIEF COMPLAINT: GERD HISTORY OF PRESENT ILLNESS: The patient is a 44-year-old female who presents reports gastroesophageal reflux disease. Upper endoscopy was offered for further evaluation and management. PAST MEDICAL HISTORY: Please see list. PAST SURGICAL HISTORY: Please see list. MEDICATIONS: Please see list. ALLERGIES: Please see list. SOCIAL HISTORY: No illicit drug use FAMILY HISTORY: No reports of Crohn disease or ulcerative colitis. REVIEW OF ORGAN SYSTEMS: CONSTITUTIONAL: No reports of fevers or chills. GI: Denies any blood in stools or constipation. PHYSICAL EXAM: VITAL SIGNS: Stable GENERAL: Well-developed and pleasant in no acute distress. HEENT: No scleral icterus. Extraocular movements grossly intact. Moist buccal mucosa. NECK: Supple without lymphadenopathy. CHEST: Unlabored respirations. Equal bilateral excursions. CARDIOVASCULAR: Regular rate and rhythm. Distal 2+ pulses. ABDOMEN: Soft, nondistended. MUSCULOSKELETAL: No clubbing, cyanosis, or edema. ASSESSMENT: 1. Gastroesophageal reflux disease PLAN: 1. Recommend proceeding with an upper endoscopy Past Medical History Past Medical History: GERD/Reflux, Hypertension Additional Past Medical History / Comment(s): obesity, pheochromocytoma, Opiod addiction clean since 2021. 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 Patient states abnormal t waves. NO LONGER ON HTN MEDS History of Any Multi-Drug Resistant Organisms: None Reported Past Surgical History: Bariatric Surgery, Section, Heart Catheterization, Tubal Ligation Additional Past Surgical History / Comment(s): D&C, right ovary removed. gastric sleeve 07/23/23, EGD, COLONOSCOPY Past Anesthesia/Blood Transfusion Reactions: No Reported Reaction Smoking Status: Former smoker - Past Family History Father Family Medical History: Cancer Additional Family Medical History / Comment(s): Lung cancer. Mother Family Medical History: Cancer Additional Family Medical History / Comment(s): Uterine cancer. Medications and Allergies Home Medications Medication Instructions Recorded Confirmed Type Albuterol Inhaler [Ventolin Hfa 1 - 2 puff INHALATION Q6H PRN 08/13/24 08/13/24 History Inhaler] Bariatric Mulivit Gummy 1 each PO DAILY 08/13/24 History Biotin [Ctzi-Rcwd-Sygji] 10,000 mcg PO DAILY 08/13/24 08/13/24 History Buprenorphine/Naloxone 8Mg/2Mg 0.5 - 1 film SL DAILY 08/13/24 08/13/24 History [Suboxone 8-2Mg Film] Calcium Citrate 500 mg PO DAILY 08/13/24 08/13/24 History Docusate [Colace] 100 mg PO DAILY 08/13/24 08/13/24 History Folic Acid 1 mg PO DAILY 08/13/24 08/13/24 History Mecobalamin [Methyl B-12] 1,000 mcg PO DAILY 08/13/24 08/13/24 History Omeprazole 40 mg PO DAILY 08/13/24 08/13/24 History Tirzepatide [Zepbound] 2.5 mg SQ TU 08/13/24 08/13/24 History Vitamin A Palmitate [Vitamin A-25 10,000 mcg PO DAILY 08/13/24 08/13/24 History (25,000 Units = 7500 MCG)] Allergies Allergy/AdvReac Type Severity Reaction Status Date / Time shellfish derived Allergy Intermediate Itching Verified 08/13/24 11:46 Pertussis Vaccines Allergy Unknown ARM Verified 08/13/24 11:46 SWELLING aspirin Allergy has had Verified 08/13/24 11:46 itching and hives in past latex Allergy Rash/Hives Verified 08/13/24 11:46 macadamia nut oil Allergy ITCHING IN Verified 08/13/24 11:46 THROAT, HIVES, nitrofurantoin Allergy Rash/Hives Verified 08/13/24 11:46 [From Macrobid] nitrofurantoin Allergy Rash/Hives Verified 08/13/24 11:46 macrocrystalline [From Macrobid] Penicillins Allergy Unknown Verified 08/13/24 11:46 Childhood adhesive tape AdvReac Rash/Hives Verified 08/13/24 11:46 Surgical - Exam Vital Signs Temp Pulse Resp BP Pulse Ox 97.8 F 60 20 128/76 99 08/18/24 07:50 08/18/24 07:50 08/18/24 07:50 08/18/24 07:50 08/18/24 07:50
[2024-08-18 08:26] VITALS: RESP 18
[2024-08-18 08:40] VITALS: BP 108/73; PULSE 56
--- NOTE | 2024-08-18 08:48 | P.PCN ---
Date of Procedure: 08/18/24 Description of Procedure: PREOPERATIVE DIAGNOSIS: Dysphagia. Gastroesophageal reflux disease. s/p sleeve gastrectomy. POSTOPERATIVE DIAGNOSIS: Dysphagia. Gastroesophageal reflux disease with bile reflux. s/p vertical sleeve gastrectomy. Esophageal dysmotility OPERATION: Esophagogastroduodenoscopy with rigid dilation, 57-Prydeinig SURGEON: Dori Lopes MD ANESTHESIA: MAC. INDICATIONS: The patient is a 44-year-old female who presents with a history of dysphagia, sleeve gastrectomy including gastroesophageal reflux disease. Benefits and risks of the procedure were described. Informed consent was obtained. DESCRIPTION: The patient was brought into the endoscopy suite and laid in the left lateral decubitus position. After a timeout was confirmed, the procedure was initiated. An Olympus gastroscope was passed along the posterior oropharynx down to the distal esophagus where the squamocolumnar junction was unremarkable. Multiple tertiary esophageal contractions were identified consistent with esophageal dysmotility. No large hiatal hernias were identified. The gastric pouch was entered. No gastric strictures were identified along her sleeve. The antrum was unremarkable. The scope was removed as a guidewire was placed. A guidewire followed by a 57-Prydeinig rigid dilator was placed. Dilation went to 57-Prydeinig with rigid dilator for 2 minutes. Dilators were removed with guidewire. The upper scope was reinserted. The scope was easily passed without resistance consistent with her esophageal dysmotility. The mucosa was intact. No full- thickness injury was encountered. The GI tract was desufflated. The patient tolerated the procedure well. FINDINGS: Tortuosity and long sleeve gastrectomy. Tertiary esophageal contractions present with esophageal dysmotility dilated LA grade B erosive esophagitis. No large diaphragmatic hiatal hernia Rigid dilation 57-Prydeinig achieved Squamocolumnar junction at 35 cm from the incisors. Presence of bile reflux RECOMMENDATIONS: Upper endoscopy as needed Plan - Discharge Summary Discharge Rx Participant: No New Discharge Prescriptions: Continue Docusate [Colace] 100 mg PO DAILY Vitamin A Palmitate [Vitamin A-25 (25,000 Units = 7500 MCG)] 10,000 mcg PO DAILY Calcium Citrate 500 mg PO DAILY Folic Acid 1 mg PO DAILY Albuterol Inhaler [Ventolin Hfa Inhaler] 1 - 2 puff INHALATION Q6H PRN PRN Reason: Shortness Of Breath Tirzepatide [Zepbound] 2.5 mg SQ TU Omeprazole 40 mg PO DAILY Mecobalamin [Methyl B-12] 1,000 mcg PO DAILY Buprenorphine/Naloxone 8Mg/2Mg [Suboxone 8-2Mg Film] 0.5 - 1 film SL DAILY Biotin [Xhpn-Uonu-Dxboq] 10,000 mcg PO DAILY Bariatric Mulivit Gummy 1 each PO DAILY Discharge Medication List Albuterol Inhaler [Ventolin Hfa Inhaler] 1 - 2 puff INHALATION Q6H PRN 08/13/24 [History] Bariatric Mulivit Gummy 1 each PO DAILY 08/13/24 [History] Biotin [Yilv-Kyfw-Zwfrm] 10,000 mcg PO DAILY 08/13/24 [History] Buprenorphine/Naloxone 8Mg/2Mg [Suboxone 8-2Mg Film] 0.5 - 1 film SL DAILY 08/13/24 [History] Calcium Citrate 500 mg PO DAILY 08/13/24 [History] Docusate [Colace] 100 mg PO DAILY 08/13/24 [History] Folic Acid 1 mg PO DAILY 08/13/24 [History] Mecobalamin [Methyl B-12] 1,000 mcg PO DAILY 08/13/24 [History] Omeprazole 40 mg PO DAILY 08/13/24 [History] Tirzepatide [Zepbound] 2.5 mg SQ TU 08/13/24 [History] Vitamin A Palmitate [Vitamin A-25 (25,000 Units = 7500 MCG)] 10,000 mcg PO DAILY 08/13/24 [History] [place] [facility] [facility] [place]17[facility]24 3:00 pm Patient Instructions/Handouts: Esophageal Dilation (DC) Discharge Disposition: HOME SELF-CARE
== END 2024-08-18 09:20 | disposition home or self-care (01) ==
LOC: ORWHC2ENDO 07:22
PROVIDERS: ATTEND Surgery Plastic and Reconstructive Surgery
DX: R13.10 Dysphagia, unspecified (principal); K21.00 Gastro-esophageal reflux disease with esophagitis, without bleeding; K22.4 Dyskinesia of esophagus; I10 Essential (primary) hypertension; F41.9 Anxiety disorder, unspecified; F32.A Depression, unspecified; E66.9 Obesity, unspecified; F43.10 Post-traumatic stress disorder, unspecified; D35.00 Benign neoplasm of unspecified adrenal gland; Z87.891 Personal history of nicotine dependence; Z79.899 Other long term (current) drug therapy; Z90.721 Acquired absence of ovaries, unilateral; Z98.890 Other specified postprocedural states; Z98.84 Bariatric surgery status; Z98.51 Tubal ligation status; Z88.2 Allergy status to sulfonamides; Z91.013 Allergy to seafood; Z88.1 Allergy status to other antibiotic agents; Z88.0 Allergy status to penicillin; Z91.09 Other allergy status, other than to drugs and biological substances; Z88.6 Allergy status to analgesic agent; Z91.040 Latex allergy status; Z80.1 Family history of malignant neoplasm of trachea, bronchus and lung; Z80.49 Family history of malignant neoplasm of other genital organs
CPT/HCPCS: 81025; 43248; J2003; J2704

== ENCOUNTER → 2024-08-18 | Outpatient (CLI) | payer OTHER ==
[2024-08-18 07:51] LABS: Partial Thromboplastin Time 25.8 sec (22.0-30.0); Prothrombin Time 11.3 sec (10.0-12.5)
[2024-08-18 10:16] LABS: HCT 37.1 % (37.2-46.3); HGB 11.8 g/dL (12.0-15.0); MCH 28.3 pg (27.0-32.0); MCHC 31.8 g/dL (32.0-37.0); Mean Platelet Volume 11.3 FL (9.5-12.2); NRBC Per 100 WBC 0 X 10*3/uL (0.00-0.01); Platelet Count 262 X 10*3/uL (140-440); RBC 4.17 X 10*6/uL (4.10-5.20); RDW 14.2 % (11.5-14.5); WBC 5.07 X 10*3/uL (4.50-10.00)
[2024-08-18 10:25] LABS: Prealbumin 17.9 mg/dL (18.0-42.0)
[2024-08-18 10:44] LABS: % Iron Saturation 12.17 (12.00-45.00); ALT 10 U/L (8-44); AST 16 U/L (13-35); Albumin 4.4 g/dL (3.8-4.9); Albumin/Globulin Ratio 1.63 Ratio (1.60-3.17); Alkaline Phosphatase 64 U/L (41-126); Blood Urea Nitrogen 23.8 mg/dL (9.0-27.0); Calcium 9.2 mg/dL (8.7-10.3); Carbon Dioxide 28.1 mmol/L (21.6-31.8); Chloride 102 mmol/L (96-109); Chol/HDL Ratio 3.91 Ratio; Ferritin 13.2 ng/mL (10.0-291.0); Globulin 2.7 g/dL (1.6-3.3); Glucose 84 mg/dL (70-110); Iron 46 UG/DL (50-170); LDL Cholesterol,Calculated 114.9 mg/dL (0.0-131.0); Magnesium 2.1 mg/dL (1.5-2.4); Phosphorus 3.6 mg/dL (2.4-5.1); Potassium 3.8 mmol/L (3.5-5.5); Sodium 140 mmol/L (135-145); Total Bilirubin 0.3 mg/dL (0.3-1.2); Total Iron Binding Capacity 378 UG/DL (228-460); Total Protein 7.1 g/dL (6.2-8.2); VLDL Calculation 15.38 mg/dL (5.00-40.00)
[2024-08-19 12:04] LABS: Zinc, Serum 96 ug/dL (60-130)
[2024-08-20 07:34] LABS: Vitamin A 42 ug/dL (38-106)
== END | disposition home or self-care (01) ==
LOC: LABWHC1 07:09
PROVIDERS: ATTEND Surgery Plastic and Reconstructive Surgery
DX: E66.01 Morbid (severe) obesity due to excess calories (principal); D50.8 Other iron deficiency anemias; E89.1 Postprocedural hypoinsulinemia; K90.89 Other intestinal malabsorption; E55.9 Vitamin D deficiency, unspecified; K74.1 Hepatic sclerosis; T56.894A Toxic effect of other metals, undetermined, initial encounter; N19 Unspecified kidney failure; K50.90 Crohn's disease, unspecified, without complications; Z68.38 Body mass index [BMI] 38.0-38.9, adult
CPT/HCPCS: 36415; 80053; 80061; 82306; 82525; 82607; 82728; 82746; 83036; 83540; 83550; 83735; 83970; 84100; 84134; 84255; 84425; 84443; 84590; 84630; 85027; 85610; 85730

== ENCOUNTER → 2024-12-02 | Outpatient (CLI) | payer OTHER | END | disposition home or self-care (01) | LOC: LABWHC1 10:43 | PROVIDERS: ATTEND Surgery Plastic and Reconstructive Surgery | DX: E03.9 Hypothyroidism, unspecified (principal) | CPT/HCPCS: 36415; 84443 ==